=== PATIENT | male | born 1980 | race Caucasian/White ===

== ENCOUNTER 2016-07-21 08:56 | Day surgery (SDC) | payer OTHER ==
[2016-07-20 11:23] VITALS: BMI 26.6
[~2016-07-21 08:56] MED LIST: DEXAMETHASONE SOD PHOSPHATE 10 MG/ML 1 ML VIAL IV ONE; HEPARIN SODIUM,PORCINE 5,000 UNIT/ML 1 ML VIAL SQ ONE; HYDROmorphone 1 MG/ML 1 ML SYRINGE IVP PRN; LACTATED RINGERS 1,000 ML IV SCH; MIDAZOLAM 2 MG/2 ML VIAL IV PRN; ONDANSETRON 4 MG/2 ML VIAL IVP ONE; SCOPOLAMINE 1.5MG/72HR PATCH TRANSDERM ONE; ceFAZolin 2 GM in SODIUM CHLORIDE 0.9% 100 ML IVPB ONE; metroNIDAZOLE-NS PMX 500 MG in SALINE 1 100ML.BAG IVPB ONE
[2016-07-21] MEDS ORDERED: LIDOCAINE 1% 20 ML VIAL (10MG/ML) FOR IV START INTRADERMA ONE (09:49)
[2016-07-21 09:53] LABS: Glucose,Whole Blood 170 mg/dL (75-99)
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
[2016-07-21] MEDS ORDERED: BUPIVACAIN-EPI 0.25%-1:200,000 30 ML VIAL SQ ONE ×2 (10:26→11:13)
[2016-07-21] MEDS ORDERED: LIDOCAINE 1% INJ 10MG/ML (20 ML MDV) ONE (10:44)
[2016-07-21] MEDS ORDERED: MIDAZOLAM 2 MG/2 ML VIAL ONE (10:44)
[2016-07-21] MEDS ORDERED: fentaNYL (PF) 50 MCG/ML 2 ML AMP ONE (10:44)
[2016-07-21] MEDS ORDERED: KETAMINE 10 MG/ML 20 ML VIAL ONE (10:44)
[2016-07-21] MEDS ORDERED: PROPOFOL 10 MG/ML 20 ML VIAL IV ONE (10:44)
--- NOTE | 2016-07-21 11:16 | P.OP ---
Date of Procedure: 07/21/16 Preoperative Diagnosis: Pilonidal cyst Postoperative Diagnosis: Pilonidal cyst Procedure(s) Performed: Excision of pilonidal cyst Anesthesia: MAC, local Surgeon: Caleb Jacques Estimated Blood Loss (ml): 5 Pathology: other (Pilonidal cyst abscess) Condition: stable Disposition: PACU Description of Procedure: The patient's placed on the operating table in the prone position. He received IV sedation. His perineum was prepped and draped usual sterile fashion. The area was anesthetized 1% local Xylocaine. An elliptical skin incision was made around the pilonidal cyst. There is some purulent drainage from phimosis. The dissection was taken down level of the coccyx. The Harmonic scissors were used to divide the subcutaneous fat. The wound was inspected for bleeding and any bleeding points were coagulated using cautery. The wound was then packed with wet-to-dry Kerlix. Patient top she will was sent to recovery in stable condition.
[2016-07-21 11:33] VITALS: TEMP 98.1
[2016-07-21 11:53] VITALS: RESP 16
[2016-07-21 14:06] VITALS: BP 119/70; PULSE 86
== END 2016-07-21 14:53 | disposition home or self-care (01) ==
LOC: OR 08:56
PROVIDERS: ATTEND Surgery
DX: L05.01 Pilonidal cyst with abscess (principal); E11.9 Type 2 diabetes mellitus without complications; Z79.84 Long term (current) use of oral hypoglycemic drugs; E07.9 Disorder of thyroid, unspecified; E78.5 Hyperlipidemia, unspecified; I10 Essential (primary) hypertension; M19.90 Unspecified osteoarthritis, unspecified site; N42.9 Disorder of prostate, unspecified; F17.200 Nicotine dependence, unspecified, uncomplicated; F41.9 Anxiety disorder, unspecified; F31.9 Bipolar disorder, unspecified; F32.9 Major depressive disorder, single episode, unspecified; F41.0 Panic disorder [episodic paroxysmal anxiety]; Z79.899 Other long term (current) drug therapy
CPT/HCPCS: 88304; 11770; J2250; J1644; J1100; J0690; J2405; J2001; J3010; J2704

== ENCOUNTER 2016-07-27 19:20 | Inpatient (IN) | payer OTHER ==
[2016-07-27] MEDS ORDERED: SODIUM CHLORIDE 0.9% 1,000 ML IV STA ×2 (19:58→21:47)
[2016-07-27] MEDS ORDERED: MORPHINE SULFATE 4 MG/ML SYRINGE IVP STA (19:58)
[2016-07-27] MEDS ORDERED: RX INFO: IV CONTRAST WAS GIVEN 1 EACH MISC MISCELLANE PRN (19:58)
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
[2016-07-27 20:52] LABS: Appearance,Urine Clear (Clear); Bilirubin,Urine Negative (Negative); Glucose,Urine (UA) 1+ (Negative); Leukocyte Esterase,Urine Negative (Negative); Nitrite,Urine Negative (Negative); Protein,Urine Negative (Negative); Specific Gravity,Urine 1.016 (1.001-1.035); UA Billing (MACRO vs. MICRO) CHEM; Urobilinogen,Urine <2.0 mg/dL (<2.0)
[2016-07-27 20:56] LABS: Basophils % (A) 0 %; CH 32.4; Eosinophils # (A) 0.1 k/uL (0-0.7); Eosinophils % (A) 1 %; HCT 41.1 % (39.0-53.0); HDW 2.26; HGB 14.2 gm/dL (13.0-17.5); Luc # (Auto) 0.15; Luc % (Auto) 1; Lymphocytes % (A) 8 %; MCHC 34.4 g/dL (31.0-37.0); MCV 92.9 fL (80.0-100.0); Mean Platelet Volume 6.2; Monocytes # (A) 0.6 k/uL (0-1.0); Monocytes % (A) 4 %; Neutrophils # (A) 11.7 k/uL (1.3-7.7); Neutrophils % (A) 86 %; RBC 4.43 m/uL (4.30-5.90); RDW 14.5 % (11.5-15.5); WBC 13.6 k/uL (3.8-10.6); WBC (Perox) 13.55
[2016-07-27 21:04] LABS: INR 1.1 (<1.1); Partial Thromboplastin Time 29.4 sec (22.0-30.0); Prothrombin Time 11.1 sec (9.0-12.0)
[2016-07-27 21:06] LABS: ALT 39 U/L (21-72); AST 27 U/L (17-59); Alkaline Phosphatase 54 U/L (38-126); Anion Gap 16 mmol/L; Blood Urea Nitrogen 12 mg/dL (9-20); Calcium 9.4 mg/dL (8.4-10.2); Carbon Dioxide 20 mmol/L (22-30); Chloride 89 mmol/L (98-107); Glucose 127 mg/dL (74-99); Non-African American GFR(MDRD) >60 (>60 ml/min/1.73 sqM); Potassium 4.5 mmol/L (3.5-5.1); Sodium 125 mmol/L (137-145); Total Bilirubin 0.7 mg/dL (0.2-1.3); Total Protein 7.2 g/dL (6.3-8.2)
[2016-07-27 21:11] LABS: Ketones,Urine 2+ (Negative)
[2016-07-27] MEDS ORDERED: HYDROmorphone 1 MG/ML 1 ML SYRINGE IVP STA ×2 (21:47→23:26)
--- NOTE | 2016-07-27 23:10 | CT ---
EXAMINATION TYPE: CT abdomen pelvis w con DATE OF EXAM: 07/27/2016 10:29 PM COMPARISON: NONE HISTORY: Pt states of abdominal pain after sx for pilondial cysts x1 week ago. History of left nephrectomy. CT DLP: 680.4 mGycm Automated exposure control for dose reduction was used. TECHNIQUE: Helical acquisition of images was performed from the lung bases through the pelvis. CONTRAST: Performed without Oral Contrast and with IV Contrast, patient injected with 100 mL of Omnipaque 300. FINDINGS: LUNG BASES: No significant abnormality is appreciated. LIVER/GB: No significant abnormality is appreciated in the liver. Gallbladder is moderately distended . Possibility of gallstones or sludge in the gallbladder cannot be excluded. PANCREAS: No significant abnormality is seen. SPLEEN: Granulomatous calcifications are noted in the spleen. There is possibility of partial splenec jonatan changes. ADRENALS: No significant abnormality is seen. KIDNEYS: Right kidney showed normal function and excretion of the contrast without obstructing opaque stones or hydronephrosis. Left kidney is surgically absent. RETROPERITONEAL ADENOPATHY: None visualized REPRODUCTIVE ORGANS: Prostate gland appears grossly unremarkable. URINARY BLADDER: Urinary bladder is moderately distended. PELVIC ADENOPATHY: None visualized. OSSEOUS STRUCTURES: Appear intact. BOWEL: There is marked fluid and gas distention of colonic bowel loops and rectum in the abdomen and pelvis. There is evidence of lucencies in the cecum and ascending colon and is suspicious for pneuma tosis and ischemic:. A clinical correlation is suggested. Visualized stomach showed moderate fluid distention. Small bowel loops showed mild to moderate fluid distention. There is possibility of mild ileus. No de finite transition zone is noted in the small bowel loops to represent significant bowel small bowel o bstruction. No definite free intraperitoneal air is noted at present. OTHER: IMPRESSION: 1. There is marked fluid and air distention of colonic bowel loops with suspected pneumatosis changes of cecum and ascending colon with suspected ischemic bowel or gangrenous bowel changes. No definite focal obstruction changes are noted in the colon. Rectum also showed fluid distention. 2. Small bowel loops are fluid distended with possible enteritis or ileus changes. No significant tra nsition zone is noted in the small bowel loops to represent focal obstruction in the small bowel loop s. 3. Left nephrectomy and partial splenectomy changes. 4. Moderate fluid distention of the gallbladder is noted with possible sludge or gallstones in the ga llbladder. If clinically indicated ultrasound study may BE helpful. A phone report is given to Dr. Ramirez at the time of the dictation.
[2016-07-27] MEDS ORDERED: LORazepam 2 MG/ML SYRINGE IV STA (23:25)
[2016-07-27] MEDS ORDERED: SODIUM CHLORIDE 0.9% 1,000 ML IV ONE (23:26)
[2016-07-27] MEDS ORDERED: NALOXONE 0.4 MG/ML 1 ML VIAL IV PRN (23:28)
[2016-07-27] MEDS ORDERED: ONDANSETRON 4 MG/2 ML VIAL IVP PRN (23:28)
[2016-07-28] MEDS ORDERED: PIPERACILLIN-TAZOBACTAM 3.375 GM in DEXTROSE/WATER 1 50ML.BAG IVPB SCH
[2016-07-28] MEDS ORDERED: LIDOCAINE URO-JET JELLY 2% 5 ML KIT ENDOTRACHE ONE (00:17)
[2016-07-28] MEDS: PIPERACILLIN-TAZOBACTAM 3.375 GM in DEXTROSE/WATER 1 50ML.BAG IVPB SCH ×2 (00:20→08:26)
[2016-07-28] MEDS: HYDROmorphone 1 MG/ML 1 ML SYRINGE IV PRN ×6 (00:38→10:52)
[2016-07-28 01:36] VITALS: BMI 26.3
[2016-07-28 02:14] VITALS: RESP 16
[2016-07-28 05:59] LABS: Glucose,Whole Blood 96 mg/dL (75-99)
[2016-07-28 07:47] VITALS: BP 127/81; PULSE 81; TEMP 98.1
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
--- NOTE | 2016-07-29 17:51 | HP ---
DATE OF ADMISSION: 07/27/2016 CHIEF COMPLAINT: Abdominal pain, distention and vomiting. Small bowel obstruction. HISTORY OF PRESENT ILLNESS: This is another admission for this 35-year-old white male. He presented to the emergency room with crampy abdominal pain, vomiting and was admitted with small bowel obstruction. He has had no hematemesis, melena, etc. REVIEW OF SYSTEMS: He has had no other complaints or problems. Past medical history, family history and personal and social histories reveal that he has been treated for diabetes and seizure disorder. He is on: 1. Bactrim DS. 2. Terazosin 1 mg once a day. 3. Seroquel 300 mg once a day. 4. Amaryl 4 mg twice a day. 5. Cymbalta 60 mg once a day. 6. Ativan 1 mg t.i.d. p.r.n. 7. Depakote 500 mg 2 twice a day. 8. Percocet 7.5 p.r.n. 9. Zocor 20 at bedtime. 10. Ventolin HFA updraft. 11. Metformin 850 mg t.i.d. 12. Metoprolol 50 mg twice a day. 13. Lisinopril 20 mg once a day. 14. Lyrica 50 mg 3 times a day. Past medical history, family history, family history and personal and social histories are otherwise unremarkable and noncontributory. He does not smoke. He has had a problem with alcohol in the past. PHYSICAL EXAMINATION: VITAL SIGNS: Blood pressure 124/80 with a pulse of 90, respirations 16, and temperature 97.5. GENERAL: Appeared to well-developed, well-nourished, in no acute distress. Face is flushed. HEENT: Head, ears, eyes, mouth, and throat were normal. NECK: Neck veins not distended. Thyroid is not enlarged. Chest is clear. Cardiac exam is normal. The abdomen is slightly protuberant. He had generalized mild tenderness. Bowel sounds are absent. EXTREMITIES: Normal. NEUROLOGICAL: Intact. IMPRESSION: 1. Small bowel obstruction. 2. Bipolar depression. 3. Type 2 diabetes type 2 loq-mrsrhlz-uhokjhzof diabetes mellitus. PLAN: 1. Bed rest. 2. IV fluids. 3. Nasogastric tube suction. 4. Surgical consult.
--- NOTE | 2016-07-29 17:53 | PN ---
DATE OF SERVICE: 07/28/2016 CHIEF COMPLAINT: Bowel obstruction. HISTORY OF PRESENT ILLNESS: This gentleman is doing fairly well and he has had copious amounts of loose stool during the night. Obstruction is probably passed. He has had no vomiting. He has had no pain. PHYSICAL EXAMINATION: CHEST: Clear. CARDIAC: Normal. Soft and nontender. Bowel sounds are present. IMPRESSION: Resolving ileus or small bowel obstruction. PLAN: Probably home later today and this will be arranged by the nurse practitioner.
== END 2016-07-28 12:27 | disposition home or self-care (01) | DRG 389 ==
LOC: EC 19:20 → 3SUR 23:26
PROVIDERS: ADMIT Surgery; ATTEND Surgery
DX: K56.60 Unspecified intestinal obstruction (principal); E87.1 Hypo-osmolality and hyponatremia; I10 Essential (primary) hypertension; E11.9 Type 2 diabetes mellitus without complications; K56.7 Ileus, unspecified; E78.5 Hyperlipidemia, unspecified; F17.200 Nicotine dependence, unspecified, uncomplicated; F41.0 Panic disorder [episodic paroxysmal anxiety]; G40.909 Epilepsy, unspecified, not intractable, without status epilepticus; G89.29 Other chronic pain; K21.9 Gastro-esophageal reflux disease without esophagitis; L05.91 Pilonidal cyst without abscess; M19.90 Unspecified osteoarthritis, unspecified site; N40.0 Benign prostatic hyperplasia without lower urinary tract symptoms; E07.9 Disorder of thyroid, unspecified; G43.909 Migraine, unspecified, not intractable, without status migrainosus; F41.9 Anxiety disorder, unspecified; F32.9 Major depressive disorder, single episode, unspecified; K59.00 Constipation, unspecified; F11.90 Opioid use, unspecified, uncomplicated; Z98.1 Arthrodesis status; Z79.84 Long term (current) use of oral hypoglycemic drugs; Z79.899 Other long term (current) drug therapy; Z82.49 Family history of ischemic heart disease and other diseases of the circulatory system
CPT/HCPCS: 36415; 74177; 80053; 81003; 83605; 83690; 83735; 85025; 85610; 85730; 96374; 96375; 99284

== ENCOUNTER 2016-07-31 09:44 | Emergency (ER) | payer OTHER ==
[2016-07-31 10:18] VITALS: BP 123/71; PULSE 89; RESP 16; TEMP 97.6
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
== END 2016-07-31 11:54 | disposition home or self-care (01) ==
LOC: EC 09:44
DX: T81.89XA Other complications of procedures, not elsewhere classified, initial encounter (principal); E11.40 Type 2 diabetes mellitus with diabetic neuropathy, unspecified; I10 Essential (primary) hypertension; E07.9 Disorder of thyroid, unspecified; G40.909 Epilepsy, unspecified, not intractable, without status epilepticus; E78.5 Hyperlipidemia, unspecified; F31.9 Bipolar disorder, unspecified; F41.9 Anxiety disorder, unspecified; F17.200 Nicotine dependence, unspecified, uncomplicated; Z79.899 Other long term (current) drug therapy; Z79.84 Long term (current) use of oral hypoglycemic drugs; Z86.69 Personal history of other diseases of the nervous system and sense organs
CPT/HCPCS: 99282; 99284

== ENCOUNTER 2016-08-23 22:32 | Inpatient (IN) | payer OTHER ==
[2016-08-23] MEDS ORDERED: SODIUM CHLORIDE 0.9% 1,000 ML IV ONE (22:35)
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
[2016-08-23 23:05] LABS: Glucose,Whole Blood 109 mg/dL (75-99)
[2016-08-23 23:08] LABS: Basophils % (A) 0 %; CH 32.9; CHCM 34.8; Eosinophils # (A) 0.2 k/uL (0-0.7); Eosinophils % (A) 2 %; HDW 2.34; HGB 15.4 gm/dL (13.0-17.5); Luc # (Auto) 0.23; Luc % (Auto) 2; Lymphocytes # (A) 3.4 k/uL (1.0-4.8); Lymphocytes % (A) 32 %; MCH 31.7 pg (25.0-35.0); MCHC 33.5 g/dL (31.0-37.0); MCV 94.8 fL (80.0-100.0); Mean Platelet Volume 6.4; Monocytes # (A) 0.5 k/uL (0-1.0); Monocytes % (A) 4 %; Neutrophils # (A) 6.3 k/uL (1.3-7.7); Neutrophils % (A) 59 %; RBC 4.85 m/uL (4.30-5.90); RDW 13.8 % (11.5-15.5); WBC 10.7 k/uL (3.8-10.6); WBC (Perox) 10.41
[2016-08-23 23:09] LABS: Appearance,Urine Clear (Clear); Bilirubin,Urine Negative (Negative); Glucose,Urine (UA) 3+ (Negative); Ketones,Urine Negative (Negative); Leukocyte Esterase,Urine Negative (Negative); Nitrite,Urine Negative (Negative); Protein,Urine Negative (Negative); Specific Gravity,Urine 1.004 (1.001-1.035); UA Billing (MACRO vs. MICRO) CHEM; Urobilinogen,Urine <2.0 mg/dL (<2.0)
[2016-08-23 23:19] LABS: ALT 30 U/L (21-72); AST 19 U/L (17-59); Acetaminophen <10.0 ug/mL; Alcohol <10 mg/dL; Alkaline Phosphatase 60 U/L (38-126); Amylase 31 U/L (30-110); Anion Gap 12 mmol/L; Blood Urea Nitrogen 27 mg/dL (9-20); Calcium 9.5 mg/dL (8.4-10.2); Carbon Dioxide 27 mmol/L (22-30); Chloride 97 mmol/L (98-107); Glucose 192 mg/dL (74-99); Magnesium 1.6 mg/dL (1.6-2.3); Non-African American GFR(MDRD) >60 (>60 ml/min/1.73 sqM); Potassium 4.7 mmol/L (3.5-5.1); Salicylate <1.0 mg/dL; Sodium 136 mmol/L (137-145); Total Bilirubin 0.7 mg/dL (0.2-1.3); Total Protein 7.2 g/dL (6.3-8.2)
[2016-08-23 23:23] LABS: Partial Thromboplastin Time 29.4 sec (22.0-30.0); Prothrombin Time 10.6 sec (9.0-12.0)
[2016-08-23 23:27] LABS: Creatine Kinase 101 U/L (55-170)
[2016-08-23 23:28] LABS: Ammonia <9 umol/L (<30)
[2016-08-23 23:40] LABS: Creatine Kinase MB 1.9 ng/mL (0.0-2.4); Troponin I <0.012 ng/mL (0.000-0.034)
--- NOTE | 2016-08-24 00:03 | CT ---
EXAMINATION TYPE: CT brain wo con DATE OF EXAM: 08/23/2016 11:25 PM COMPARISON: NONE HISTORY: OVERDOSE CT DLP: 960.50 mGycm Automated exposure control for dose reduction was used. FINDINGS: There is no acute intracranial hemorrhage, mass effect, or midline shift identified. The ventricles and sulci are within normal limits in size. The globes are intact and the visualized sinuses are luisa ar. IMPRESSION: No acute intracranial hemorrhage, mass effect, or midline shift is seen.
--- NOTE | 2016-08-24 00:05 | XR ---
EXAMINATION TYPE: XR chest 1V portable DATE OF EXAM: 08/23/2016 11:18 PM COMPARISON: NONE HISTORY: History of overdose no prior TECHNIQUE: Single frontal view of the chest is obtained. FINDINGS: There is no focal air space opacity, pleural effusion, or pneumothorax seen. The cardiac silhouette size is within normal limits. The osseous structures are intact. IMPRESSION: No acute process.
[2016-08-24] MEDS ORDERED: ZIPRASIDONE 20 MG VIAL IM STA (01:23)
[2016-08-24] MEDS ORDERED: LORazepam 2 MG/ML SYRINGE IM STA (01:23)
[2016-08-24] MEDS ORDERED: NALOXONE 0.4 MG/ML 1 ML VIAL IV PRN (01:34)
[2016-08-24] MEDS ORDERED: LORazepam 2 MG/ML SYRINGE IV PRN (01:34)
[2016-08-24 03:43] LABS: Glucose,Whole Blood 207 mg/dL (75-99)
[2016-08-24] MEDS: SODIUM CHLORIDE 0.9% 1,000 ML IV SCH ×3 (03:47→23:39)
[2016-08-24 07:37] LABS: Glucose,Whole Blood 197 mg/dL (75-99)
[2016-08-24] MEDS: INSULIN LISPRO (humaLOG) 300 UNIT/3 ML VIAL SQ SCH ×4 (07:41→20:51)
[2016-08-24] MEDS ORDERED: DIVALPROEX 500 MG TABLET.DR PO SCH (09:00)
[2016-08-24 10:06] LABS: Hemoglobin A1C 7.8 % (4.2-6.1)
[2016-08-24] MEDS: VALPROATE SODIUM 750 MG in SODIUM CHLORIDE 0.9% 50 ML IVPB SCH ×2 (10:10→20:51)
[2016-08-24] MEDS ORDERED: VALPROATE SODIUM 500 MG in SODIUM CHLORIDE 0.9% 50 ML IVPB STA (10:55)
[2016-08-24 11:46] LABS: Glucose,Whole Blood 187 mg/dL (75-99)
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
[2016-08-24] MEDS ORDERED: DOCUSATE 100 MG CAP PO PRN (14:07)
[2016-08-24] MEDS: metFORMIN 850 MG TAB PO SCH ×3 (16:58→21:05)
[2016-08-24] MEDS: PREGABALIN 50 MG CAP PO SCH ×2 (16:59→21:05)
[2016-08-24 17:00] LABS: Glucose,Whole Blood 100 mg/dL (75-99)
[2016-08-24] MEDS: LORazepam 1 MG TAB PO PRN ×2 (18:11→23:37)
[2016-08-24] MEDS: HYDROcodone/APAP 5-325MG 1 EACH TAB PO PRN ×2 (18:11→23:37)
[2016-08-24] MEDS: METOPROLOL TARTRATE 50 MG TAB PO SCH (20:09)
[2016-08-24] MEDS: QUEtiapine 100 MG TAB PO SCH ×2 (20:09→22:13)
[2016-08-24] MEDS: TERAZOSIN 2 MG CAP PO SCH (20:09)
[2016-08-24 20:43] LABS: Glucose,Whole Blood 117 mg/dL (75-99)
[2016-08-24] MEDS ORDERED: traZODone HCL 100 MG TAB PO PRN (21:00)
[2016-08-24] MEDS ORDERED: FAMOTIDINE 20 MG TAB PO SCH (21:00)
[2016-08-24] MEDS ORDERED: ATORVASTATIN 10 MG TAB PO SCH (21:00)
[2016-08-24] MEDS ORDERED: GLIMEPIRIDE 4 MG TAB PO SCH (21:00)
[2016-08-24] MEDS: PSYLLIUM HUSK 100% 6 GM PACKET PO SCH (21:04)
[2016-08-25 00:26] VITALS: RESP 18
[2016-08-25 02:03] LABS: Glucose,Whole Blood 188 mg/dL (75-99)
[2016-08-25] MEDS: HYDROcodone/APAP 5-325MG 1 EACH TAB PO PRN (05:17)
[2016-08-25] MEDS ORDERED: LEVOTHYROXINE 50 MCG TAB PO SCH (06:30)
[2016-08-25 07:38] LABS: Glucose,Whole Blood 160 mg/dL (75-99)
[2016-08-25] MEDS: LORazepam 1 MG TAB PO PRN (07:40)
[2016-08-25] MEDS: METOPROLOL TARTRATE 50 MG TAB PO SCH (07:41)
[2016-08-25] MEDS: metFORMIN 850 MG TAB PO SCH (07:41)
[2016-08-25] MEDS: INSULIN LISPRO (humaLOG) 300 UNIT/3 ML VIAL SQ SCH (07:41)
[2016-08-25] MEDS: TERAZOSIN 2 MG CAP PO SCH (07:42)
[2016-08-25] MEDS: PREGABALIN 50 MG CAP PO SCH (07:42)
[2016-08-25] MEDS: VALPROATE SODIUM 750 MG in SODIUM CHLORIDE 0.9% 50 ML IVPB SCH (07:42)
[2016-08-25] MEDS: PSYLLIUM HUSK 100% 6 GM PACKET PO SCH (07:49)
[2016-08-25] MEDS ORDERED: LISINOPRIL 20 MG TAB PO SCH (09:00)
[2016-08-25] MEDS ORDERED: glipiZIDE 10 MG TAB PO SCH (09:00)
[2016-08-25] MEDS ORDERED: DULoxetine HCL 60 MG CAPSULE.DR PO SCH (09:00)
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
[2016-08-25 10:29] VITALS: BP 140/92; PULSE 83; TEMP 97.5
--- NOTE | 2016-08-25 10:36 | P.DS ---
Providers Date of admission: 08/24/16 01:34 Expected date of discharge: 08/25/16 Attending physician: Deon Quintanilla Consults: 08/24/16 10:33 Consult Physician Urgent Consulting Provider: Venu Sylvester Consult Reason/Comments: seizures Do you want consulting provider notified?: Yes Primary care physician: Deon Quintanilla Hospital Course: 36-year-old male who presented on the day of admission to the emergency room on the after his grandmother found the patient to be unresponsive difficult to arouse. The grandmother activated the EMS system. When the patient was arousable became very combative and confused. The blood sugar was 300. Patient does have a history of diabetes. Also has a history of a seizure disorder. Patient's home dose of Depakote was 1000 mg twice a day. Patient apparently had missed several doses and the patient was concerned that he had a seizure. Patient's primary care provider is Dr. Quintanilla. A computed tomography scan of the brain done in the emergency room was negative. CBC showed mild leukocytosis otherwise was normal. The comprehensive medical profile showed mild hypo-natremia at 36. Urinalysis and cardiac enzymes were negative and hemoglobin A1c was 7.8. Subsequently the patient was seen and admitted to the services of the attending. A urine drug screen was positive for marijuana, benzodiazepine, and Tri-Cyclen antidepressives. Patient Depakote level on arrival was undetectable. When questioning patient patient stated that he had stopped taking his Depakote because he was concerned it was going to cause liver failure. There were no further episodes of aggressive agitated behavior. Patient was given Geodon and Haldol in the emergency room. In neurology Dr. Sylvester consult was initiated with recommendations that the patient could be discharged. EEG showed no acute findings. Recommended Depakote twice a day dosing extended relief. Patient was felt to be clinically stable and appropriate proceed with a discharge to home Impression discharge diagnoses Present on arrival seizure with postictal state with Depakote level undetectable Issues of noncompliance with medications stopped his Depakote greater than 4 weeks Chronic pain syndrome with narcotic dependency Present on admission acute toxic encephalopathy with behavior disturbance likely due to medications side effects had stopped Lyrica and Depakote Subtherapeutic Depakote level Recent excision of a pilonidal cyst on 07/21/2016 Bipolar mood disorder Type 2 diabetes non-insulin requiring hemoglobin A1c 7.8 History of alcoholism with the recent admission on 07/07/2016 acute alcohol withdrawal syndrome Chronic alcoholism History of grand mal seizure disorder 08/07/2015 Urine drug screen positive for marijuana, benzodiazepine, tigecycline antidepressives Present on admission mild leukocytosis likely reactive Present in the emergency room hyperglycemia blood sugar 300 Present on admission mild hyponatremia The above dictated assessment and findings were discussed with dr Quintanilla. Impression and the plan of care have been dictated as directed. Lana Herrera nurse practitioner acting as a scribe for Dr. Quintanilla Patient Condition at Discharge: Stable Plan - Discharge Summary New Discharge Prescriptions: Divalproex ER [Depakote ER] 1,000 mg PO BID #120 tab Discharge Medication List Metoprolol Tartrate [Lopressor] 50 mg PO BID 02/22/16 [History] metFORMIN HCL [Glucophage] 850 mg PO TID 02/22/16 [History] Dextrose Chew [Glucose Chew Tab] 4 gm PO DIRECTED PRN 07/05/16 [History] Lisinopril [Zestril] 20 mg PO DAILY 07/05/16 [History] Pregabalin [Lyrica] 50 mg PO TID 07/05/16 [History] QUEtiapine FUMARATE [SEROquel] 300 mg PO HS 07/05/16 [History] Simvastatin [Zocor] 20 mg PO HS 07/05/16 [History] Testosterone Cypionate [Depo-Testosterone] 300 mg IM Q21D 07/05/16 [History] oxyCODONE-APAP 7.5-325MG [Percocet 7.5-325 mg] 1 tab PO Q4-6H PRN 07/05/16 [ History] traZODone HCL [Desyrel] 50 - 100 mg PO HS PRN 07/05/16 [History] DULoxetine HCL [Cymbalta] 60 mg PO DAILY 07/20/16 [History] Glimepiride [Amaryl] 4 mg PO BID 07/20/16 [History] LORazepam [Ativan] 1 mg PO TID PRN 07/20/16 [History] Divalproex Sodium [Depakote] 1,000 mg PO BID 07/27/16 [History] Docusate [Colace] 100 mg PO BID PRN 07/27/16 [History] Levothyroxine Sodium [Synthroid] 50 mcg PO DAILY 07/27/16 [History] Aurora-3 Fatty Acids [Aurora-3] 2,000 mg PO BID 07/27/16 [History] Mariee Caplets 8 tab PO DAILY PRN 07/27/16 [History] Psyllium Husk (with Sugar) [Metamucil Powder] 3.4 gm PO BID #1 can 07/28/16 [Rx] Terazosin [Hytrin] 2 mg PO BID 08/23/16 [History] glyBURIDE [Diabeta] 5 mg PO DAILY 08/23/16 [History] Divalproex ER [Depakote ER] 1,000 mg PO BID #120 tab 08/25/16 [Rx] Follow up Appointment(s)/Referral(s): Deon Quintanilla MD [Primary Care Provider] - 08/28/16 [facility], [NON-STAFF] - Venu Sylvester MD [STAFF PHYSICIAN] - 1 Week None,Stated [REFERRING] - 1-2 days Patient Instructions/Handouts: Encephalopathy (DC) Activity/Diet/Wound Care/Special Instructions: Take medications as prescribed. Cardiac, diabetic diet. NO smoking, cessation information provided. Wound care as previously ordered to [facility]. Discharge Disposition: HOME WITH HOME HEALTH SERVICES
[2016-08-25 10:53] LABS: Basophils % (A) 0 %; CH 32.6; CHCM 33.4; Eosinophils # (A) 0.1 k/uL (0-0.7); Eosinophils % (A) 1 %; HCT 46.1 % (39.0-53.0); HGB 15.2 gm/dL (13.0-17.5); Luc # (Auto) 0.14; Luc % (Auto) 2; Lymphocytes # (A) 1.5 k/uL (1.0-4.8); Lymphocytes % (A) 17 %; MCH 32.3 pg (25.0-35.0); MCHC 32.9 g/dL (31.0-37.0); Mean Platelet Volume 6.2; Monocytes # (A) 0.3 k/uL (0-1.0); Monocytes % (A) 4 %; Neutrophils # (A) 6.7 k/uL (1.3-7.7); Neutrophils % (A) 76 %; RBC 4.71 m/uL (4.30-5.90); RDW 13.8 % (11.5-15.5); WBC 8.7 k/uL (3.8-10.6); WBC (Perox) 8.71
[2016-08-25 11:12] LABS: ALT 26 U/L (21-72); AST 19 U/L (17-59); Alkaline Phosphatase 65 U/L (38-126); Anion Gap 14 mmol/L; Blood Urea Nitrogen 14 mg/dL (9-20); Calcium 9.4 mg/dL (8.4-10.2); Carbon Dioxide 25 mmol/L (22-30); Chloride 96 mmol/L (98-107); Glucose 194 mg/dL (74-99); Non-African American GFR(MDRD) >60 (>60 ml/min/1.73 sqM); Potassium 4.9 mmol/L (3.5-5.1); Sodium 135 mmol/L (137-145); Total Bilirubin 1.1 mg/dL (0.2-1.3); Total Protein 7.5 g/dL (6.3-8.2)
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
--- NOTE | 2016-08-26 14:43 | PN ---
CHIEF COMPLAINT: Coma. HISTORY OF PRESENT ILLNESS: This gentleman is doing well and he is now fully awake and alert. The etiology for his syncope is not clear, but may be related to the fact that he had not taken his medications and might have had a seizure with postictal depression. At the present time, he is back to normal neurologically and can be discharged and this will be arranged by the nurse practitioner and will be followed up in the office.
--- NOTE | 2016-08-27 09:05 | EEG ---
DATE OF SERVICE: 08/25/2016 INDICATIONS FOR EXAMINATION: Altered mental status and seizures. AGE: 36Y CURRENT ANTIEPILEPTIC MEDICATIONS: Depakote. DESCRIPTION OF THE PROCEDURE: This EEG was performed using a 21-channel digital electroencephalograph, following the international 10 to 20 system. DESCRIPTION OF THE RECORDING: From the beginning of the tracing, and with the patient's eyes closed, the background rhythm was mostly consisting of 8 to 9 Hz alpha frequency in the posterior occipital leads. No obvious asymmetry is seen. Frequent movement and muscle artifacts are noticed. Photic stimulation was performed with a good driving response seen. No pathological waves were elicited. Hyperventilation was not performed. The patient remains awake throughout the tracing. No epileptiform discharges were seen. His EKG lead showed a regular rate and rhythm. INTERPRETATION: This awake EEG can be considered within normal limits. There was no asymmetry seen. No epileptiform discharges were noticed. The absence of epileptiform discharges does not rule out the diagnosis of epilepsy, therefore, clinical correlation is recommended that.
== END 2016-08-25 11:05 | disposition home health service (06) | DRG 92 ==
LOC: EC 22:32 → SUPCPDRO 22:32 → 4MS4W 08-24 01:34
PROVIDERS: ADMIT Family Medicine; ATTEND Family Medicine
DX: G92 Toxic encephalopathy (principal); E87.1 Hypo-osmolality and hyponatremia; G40.409 Other generalized epilepsy and epileptic syndromes, not intractable, without status epilepticus; E11.65 Type 2 diabetes mellitus with hyperglycemia; F11.20 Opioid dependence, uncomplicated; I10 Essential (primary) hypertension; G62.9 Polyneuropathy, unspecified; T42.6X6A Underdosing of other antiepileptic and sedative-hypnotic drugs, initial encounter; F31.9 Bipolar disorder, unspecified; D72.829 Elevated white blood cell count, unspecified; F91.8 Other conduct disorders; G89.4 Chronic pain syndrome; E86.0 Dehydration; E78.5 Hyperlipidemia, unspecified; F41.0 Panic disorder [episodic paroxysmal anxiety]; G89.18 Other acute postprocedural pain; M79.605 Pain in left leg; F10.20 Alcohol dependence, uncomplicated; F41.9 Anxiety disorder, unspecified; K59.00 Constipation, unspecified; G43.909 Migraine, unspecified, not intractable, without status migrainosus; K21.9 Gastro-esophageal reflux disease without esophagitis; E03.9 Hypothyroidism, unspecified; R32 Unspecified urinary incontinence; M19.90 Unspecified osteoarthritis, unspecified site; M54.2 Cervicalgia; M54.5 Low back pain; N40.0 Benign prostatic hyperplasia without lower urinary tract symptoms; F17.200 Nicotine dependence, unspecified, uncomplicated; F12.90 Cannabis use, unspecified, uncomplicated; Z78.1 Physical restraint status; Z79.84 Long term (current) use of oral hypoglycemic drugs; Z79.899 Other long term (current) drug therapy; Z71.6 Tobacco abuse counseling; Z80.9 Family history of malignant neoplasm, unspecified; Z87.448 Personal history of other diseases of urinary system; Z82.49 Family history of ischemic heart disease and other diseases of the circulatory system; Z98.1 Arthrodesis status; Z90.81 Acquired absence of spleen; Z98.890 Other specified postprocedural states; Z87.828 Personal history of other (healed) physical injury and trauma; Z90.5 Acquired absence of kidney; Z91.128 Patient's intentional underdosing of medication regimen for other reason; Z91.14 Patient's other noncompliance with medication regimen; Y90.0 Blood alcohol level of less than 20 mg/100 ml
CPT/HCPCS: 36415; 70450; 71010; 80053; 80164; 80306; 80320; 81003; 82009; 82140; 82150; 82550; 82553; 83036; 83520; 83605; 83690; 83735; 84443; 84484; 85025; 85610; 85730; 87070; 87077; 87186; 87205; 93005; 95816; 96372; 99291

== ENCOUNTER 2016-09-08 11:55 | Emergency (ER) | payer OTHER ==
[2016-09-08 12:59] VITALS: BP 154/94
[2016-09-08 13:35] VITALS: RESP 18
[2016-09-08] MEDS ORDERED: ALBUTEROL NEBULIZED 2.5 MG/3 ML INHALATION STA (13:44)
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
[2016-09-08 14:05] VITALS: PULSE 104
--- NOTE | 2016-09-08 14:36 | XR ---
EXAMINATION TYPE: XR chest 2V DATE OF EXAM: 09/08/2016 2:31 PM COMPARISON: 08/23/2016 HISTORY: Cough and chest pain TECHNIQUE: Frontal and lateral views of the chest are obtained. FINDINGS: Patchy infiltrate right upper lobe and right medial lung base may reflect developing pneum onia. Mild increased density left lower lobe. Cardiomediastinal silhouette is unremarkable. Calcified subcarinal lymph nodes are detected. IMPRESSION: Correlate for developing pneumonia.
[2016-09-08 14:50] VITALS: TEMP 98.4
== END 2016-09-08 14:49 | disposition home or self-care (01) ==
LOC: EC 11:55
DX: J18.9 Pneumonia, unspecified organism (principal); I10 Essential (primary) hypertension; G40.909 Epilepsy, unspecified, not intractable, without status epilepticus; E78.5 Hyperlipidemia, unspecified; E11.9 Type 2 diabetes mellitus without complications; M19.90 Unspecified osteoarthritis, unspecified site; E07.9 Disorder of thyroid, unspecified; N40.0 Benign prostatic hyperplasia without lower urinary tract symptoms; F31.9 Bipolar disorder, unspecified; F41.9 Anxiety disorder, unspecified; F41.0 Panic disorder [episodic paroxysmal anxiety]; F17.200 Nicotine dependence, unspecified, uncomplicated; Z79.84 Long term (current) use of oral hypoglycemic drugs; Z79.899 Other long term (current) drug therapy
CPT/HCPCS: 71020; 87502; 94640; 99284

== ENCOUNTER → 2017-02-06 | Outpatient (CLI) | payer OTHER ==
--- NOTE | 2017-02-06 23:05 | MR ---
MRI CERVICAL SPINE: CLINICAL HISTORY: Neck pain per order. Headache with neck pain with left arm weakness for 6 years, hi story of prior surgery per patient. TECHNIQUE: Multiplanar, multisequence imaging of the cervical spine is performed without IV contrast. COMPARISON: None. FINDINGS: Sagittal images of the cervical spine show the craniocervical junction to appear within nor mal limits. The cervical and upper thoracic spinal cord is normal in course, caliber, and signal. V ertebral alignment is anatomic. Artifact from anterior fusion plate C5-C6 level is present. The verte bral body and intravertebral disk heights are normal above and below surgical levels. There is mild to moderate anterior spurring C3 and C4 vertebra. No large posterior disc herniations are seen on sag ittal images. The bone marrow signal intensity is within normal limits. Axial images show the C2-C3 level to appear within normal limits. Axial images at C3-C4 level show broad-based posterior disc protrusion mildly effacing anterior theca l sac with moderate right and mild left-sided neural foraminal narrowing felt present. Axial images at C4-C5 level show left paracentral disc protrusion effacing anterolateral thecal sac w ith moderate to severe left greater than right neural foraminal narrowing felt present. Axial images at C5-C6 level show artifact from anterior fusion plate, there is asymmetric mild to mod erate right-sided neural foraminal narrowing. Spinal canal is preserved. Axial images at C6-C7 and C7-T1 levels are felt within normal limits. IMPRESSION: Postsurgical changes C5-C6 level with satisfactory alignment. Degenerative changes are no juanis C3-C4 and C4-C5 level above level of surgery as detailed above.
== END | disposition home or self-care (01) ==
LOC: RADMRIMAIN 17:50
PROVIDERS: ATTEND Internal Medicine
DX: M47.812 Spondylosis without myelopathy or radiculopathy, cervical region (principal); Z98.1 Arthrodesis status
CPT/HCPCS: 72141

== ENCOUNTER 2017-05-07 12:37 | Inpatient (IN) | payer OTHER ==
[2017-05-07] MEDS ORDERED: ONDANSETRON 4 MG/2 ML VIAL IVP STA (12:56)
[2017-05-07] MEDS ORDERED: PANTOPRAZOLE 40 MG/10 ML VIAL IVP STA (12:56)
[2017-05-07] MEDS ORDERED: MORPHINE SULFATE 10 MG/ML SYRINGE IV STA (12:56)
[2017-05-07] MEDS ORDERED: SODIUM CHLORIDE 0.9% 1,000 ML IV STA ×3 (12:56→14:37)
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
[2017-05-07 13:50] LABS: Basophils % (A) 0 %; CH 34.5; CHCM 33.8; Eosinophils # (A) 0.2 k/uL (0-0.7); Eosinophils % (A) 2 %; HCT 48.2 % (39.0-53.0); HDW 2.12; Luc # (Auto) 0.08; Luc % (Auto) 1; Lymphocytes # (A) 0.9 k/uL (1.0-4.8); Lymphocytes % (A) 7 %; MCHC 33.2 g/dL (31.0-37.0); MCV 102.6 fL (80.0-100.0); Macrocytosis Slight; Mean Platelet Volume 6.9; Monocytes # (A) 0.4 k/uL (0-1.0); Monocytes % (A) 3 %; Neutrophils # (A) 11.7 k/uL (1.3-7.7); Neutrophils % (A) 88 %; RBC 4.69 m/uL (4.30-5.90); RDW 13.7 % (11.5-15.5); WBC 13.3 k/uL (3.8-10.6); WBC (Perox) 13.07
[2017-05-07 13:58] LABS: ALT 35 U/L (21-72); AST 23 U/L (17-59); Alkaline Phosphatase 74 U/L (38-126); Amylase 76 U/L (30-110); Anion Gap 10 mmol/L; Blood Urea Nitrogen 17 mg/dL (9-20); Carbon Dioxide 24 mmol/L (22-30); Chloride 99 mmol/L (98-107); Glucose 222 mg/dL (74-99); Non-African American GFR(MDRD) >60 (>60 ml/min/1.73 sqM); Potassium 4.5 mmol/L (3.5-5.1); Sodium 133 mmol/L (137-145); Total Bilirubin 0.6 mg/dL (0.2-1.3); Total Protein 7.2 g/dL (6.3-8.2)
[2017-05-07 14:09] LABS: Creatine Kinase 121 U/L (55-170)
[2017-05-07 14:22] LABS: Troponin I <0.012 ng/mL (0.000-0.034)
[2017-05-07 14:28] LABS: Creatine Kinase MB 2.8 ng/mL (0.0-2.4)
[2017-05-07] MEDS ORDERED: KETOROLAC 30 MG/ML 1 ML VIAL IVP STA (14:37)
[2017-05-07] MEDS ORDERED: MORPHINE SULFATE 10 MG/ML SYRINGE IVP STA (14:37)
--- NOTE | 2017-05-07 15:54 | US ---
EXAMINATION TYPE: US gallbladder DATE OF EXAM: 05/07/2017 COMPARISON: NONE CLINICAL HISTORY: Pain. Severe abd and back pain EXAM MEASUREMENTS: Liver Length: 19.6 cm Gallbladder Wall: 0.3 cm CBD: 0.8 cm Right Kidney: 13.9 x 5.2 x 4.9 cm Pancreas: unable to view due to bowel gas Liver: enlarged Gallbladder: mobile debris seen with borderline wall thickness Evidence for sonographic Yang's sign: YES CBD: dilated with no obvious obstruction, could not view end near pancreas head due to gas Right Kidney: larger in size There is no ascites. IMPRESSION: Hepatomegaly. Tumefactive sludge likely within the gallbladder, gallbladder is hydropic w ith abnormal wall thickening, correlate for cholecystitis. Dilated common bile duct, gastroenterology or surgical consult suggested. Limited exam.
[2017-05-07] MEDS ORDERED: HYDROmorphone 1 MG/ML 1 ML SYRINGE IVP PRN (16:19)
[2017-05-07] MEDS ORDERED: HYDROmorphone 2 MG/ML 1 ML SYRINGE IVP STA (16:19)
--- NOTE | 2017-05-07 16:24 | ED ---
Medical Decision Making - Medical Decision Making 36 male to ER for evaluation. Patient feels he has acute hepatitis. Lipase 500. Patient continued complaining of abdominal pain. At this point ultrasound of gallbladder was ordered which shows positive cholecystitis. Patient will be admitted for pain control and surgical evaluation and treatment - Lab Data Result diagrams: 05/07/17 13:36 05/07/17 13:36 Lab Results 05/07/17 05/07/17 05/07/17 Range/Units 13:36 13:36 13:36 WBC 13.3 H (3.8-10.6) k/uL RBC 4.69 (4.30-5.90) m/uL Hgb 16.0 (13.0-17.5) gm/dL Hct 48.2 (39.0-53.0) % MCV 102.6 H (80.0-100.0) fL MCH 34.0 (25.0-35.0) pg MCHC 33.2 (31.0-37.0) g/dL RDW 13.7 (11.5-15.5) % Plt Count 344 (150-450) k/uL Neutrophils % 88 % Lymphocytes % 7 % Monocytes % 3 % Eosinophils % 2 % Basophils % 0 % Neutrophils # 11.7 H (1.3-7.7) k/uL Lymphocytes # 0.9 L (1.0-4.8) k/uL Monocytes # 0.4 (0-1.0) k/uL Eosinophils # 0.2 (0-0.7) k/uL Basophils # 0.0 (0-0.2) k/uL Macrocytosis Slight Sodium 133 L (137-145) mmol/L Potassium 4.5 (3.5-5.1) mmol/L Chloride 99 (98-107) mmol/L Carbon Dioxide 24 (22-30) mmol/L Anion Gap 10 mmol/L BUN 17 (9-20) mg/dL Creatinine 0.87 (0.66-1.25) mg/dL Est GFR (MDRD) Af Amer >60 (>60 ml/min/1.73 sqM) Est GFR (MDRD) Non-Af >60 (>60 ml/min/1.73 sqM) Glucose 222 H (74-99) mg/dL Plasma Lactic Acid Severo (0.7-2.0) mmol/L Calcium 9.0 (8.4-10.2) mg/dL Total Bilirubin 0.6 (0.2-1.3) mg/dL AST 23 (17-59) U/L ALT 35 (21-72) U/L Alkaline Phosphatase 74 (38-126) U/L Total Creatine Kinase 121 (55-170) U/L CK-MB (CK-2) 2.8 H* (0.0-2.4) ng/mL CK-MB (CK-2) Rel Index 2.3 Troponin I <0.012 (0.000-0.034) ng/mL Total Protein 7.2 (6.3-8.2) g/dL Albumin 4.4 (3.5-5.0) g/dL Amylase 76 (30-110) U/L Lipase 562 H (23-300) U/L 05/07/17 Range/Units 13:36 WBC (3.8-10.6) k/uL RBC (4.30-5.90) m/uL Hgb (13.0-17.5) gm/dL Hct (39.0-53.0) % MCV (80.0-100.0) fL MCH (25.0-35.0) pg MCHC (31.0-37.0) g/dL RDW (11.5-15.5) % Plt Count (150-450) k/uL Neutrophils % % Lymphocytes % % Monocytes % % Eosinophils % % Basophils % % Neutrophils # (1.3-7.7) k/uL Lymphocytes # (1.0-4.8) k/uL Monocytes # (0-1.0) k/uL Eosinophils # (0-0.7) k/uL Basophils # (0-0.2) k/uL Macrocytosis Sodium (137-145) mmol/L Potassium (3.5-5.1) mmol/L Chloride (98-107) mmol/L Carbon Dioxide (22-30) mmol/L Anion Gap mmol/L BUN (9-20) mg/dL Creatinine (0.66-1.25) mg/dL Est GFR (MDRD) Af Amer (>60 ml/min/1.73 sqM) Est GFR (MDRD) Non-Af (>60 ml/min/1.73 sqM) Glucose (74-99) mg/dL Plasma Lactic Acid Severo 1.0 (0.7-2.0) mmol/L Calcium (8.4-10.2) mg/dL Total Bilirubin (0.2-1.3) mg/dL AST (17-59) U/L ALT (21-72) U/L Alkaline Phosphatase (38-126) U/L Total Creatine Kinase (55-170) U/L CK-MB (CK-2) (0.0-2.4) ng/mL CK-MB (CK-2) Rel Index Troponin I (0.000-0.034) ng/mL Total Protein (6.3-8.2) g/dL Albumin (3.5-5.0) g/dL Amylase (30-110) U/L Lipase (23-300) U/L - Radiology Data Radiology results: report reviewed (Ultrasound is positive for cholecystitis), image reviewed Disposition Clinical Impression: Pancreatitis, Abdominal pain, Acute cholecystitis Disposition: ADMITTED IP TO THIS [facility] Condition: Fair Instructions: Abdominal Pain (ED) Referrals: Renee Ashley MD [Primary Care Provider] - 1-2 days
[2017-05-07] MEDS ORDERED: SODIUM CHLORIDE 0.9% 1,000 ML IV ONE (16:25)
[2017-05-07 18:02] LABS: Glucose,Whole Blood 171 mg/dL (75-99)
[2017-05-07] MEDS ORDERED: IPRATROPIUM-ALBUTEROL 3 ML NEB INHALATION PRN (18:39)
[2017-05-07] MEDS ORDERED: LORazepam 2 MG/ML INJ IV PRN (18:40)
[2017-05-07] MEDS ORDERED: THIAMINE 100 MG/ML 2 ML VIAL IM STA (18:40)
[2017-05-07] MEDS: PIPERACILLIN-TAZOBACTAM 3.375 GM in DEXTROSE/WATER 1 50ML.BAG IVPB SCH (19:35)
[2017-05-07] MEDS: METOPROLOL TARTRATE 25 MG TAB PO SCH (19:36)
[2017-05-07] MEDS: INSULIN LISPRO (humaLOG) 300 UNIT/3 ML VIAL SQ SCH (19:41)
[2017-05-07] MEDS: HYDROmorphone 1 MG/ML 1 ML SYRINGE IVP PRN ×2 (19:55→23:12)
[2017-05-07] MEDS: IPRATROPIUM-ALBUTEROL 3 ML NEB INHALATION SCH (19:59)
[2017-05-07 20:35] LABS: Glucose,Whole Blood 165 mg/dL (75-99)
[2017-05-07] MEDS: THIAMINE 100 MG TAB PO SCH (22:42)
[2017-05-07] MEDS: INSULIN GLARGINE 100 UNIT/ML 10 ML VIAL SQ SCH (22:42)
[2017-05-07] MEDS: ONDANSETRON 4 MG/2 ML VIAL IVP PRN (22:42)
[2017-05-07] MEDS: IOHEXOL 350 MG/ML 25 ML BOTTLE (ORAL USE) PO PRN (23:12)
[2017-05-08] MEDS: INSULIN LISPRO (humaLOG) 300 UNIT/3 ML VIAL SQ SCH ×4 (00:13→17:57)
[2017-05-08] MEDS: PIPERACILLIN-TAZOBACTAM 3.375 GM in DEXTROSE/WATER 1 50ML.BAG IVPB SCH ×3 (00:13→16:49)
[2017-05-08] MEDS: IOHEXOL 350 MG/ML 25 ML BOTTLE (ORAL USE) PO PRN (00:13)
[2017-05-08] MEDS: LORazepam 2 MG/ML INJ IV PRN ×6 (00:22→20:42)
[2017-05-08 00:28] LABS: Glucose,Whole Blood 199 mg/dL (75-99)
--- NOTE | 2017-05-08 01:05 | XR ---
EXAMINATION TYPE: XR chest 2V DATE OF EXAM: 05/08/2017 COMPARISON: 09/08/2016 HISTORY: Abdominal pain TECHNIQUE: Frontal and lateral views of the chest are obtained. FINDINGS: There is no heart failure nor confluent pneumonic infiltrate. Costophrenic angles are clara r. Bony thorax is intact. Old left-sided healed rib fractures noted. IMPRESSION: No active cardiac pulmonary disease. There is clearing of the patchy pneumonia in both l ungs compared to last exam.
--- NOTE | 2017-05-08 01:11 | CT ---
EXAMINATION TYPE: CT abdomen pelvis wo con DATE OF EXAM: 05/08/2017 COMPARISON: NONE HISTORY: cholilithiasis. Abdominal pain. CT DLP: 318.80 mGycm Automated exposure control for dose reduction was used. TECHNIQUE: Helical acquisition of images was performed from the lung bases through the pelvis. FINDINGS: There is mild subsegmental atelectasis at the lung bases. There is no pleural effusion. Liver shows no focal defect. Gallbladder is distended. There is diffuse fat stranding around the enti re pancreas. There are numerous calcified splenic granulomata. Left kidney is absent. The right kidney shows no hydronephrosis. There is no sign of retroperitoneal adenopathy. There is no ascites. Appendix appears normal. Bladder distends smoothly. There is no sign of a pelvic mass. There is no free fluid in the pelvis. I see no bony destructive process. IMPRESSION: DISTENDED GALLBLADDER. NO DILATED DUCTS. INFLAMMATORY CHANGES AROUND THE ENTIRE PANCREAS CONSISTENT W ITH PANCREATITIS. THIS APPEARS NEW COMPARED TO OLD CT SCAN. THERE IS CLEARING OF THE DILATED LARGE JAMES WEL AND FLUID LEVELS COMPARED TO OLD EXAM.
[2017-05-08 02:10] LABS: Appearance,Urine Cloudy (Clear); Bilirubin,Urine Negative (Negative); Glucose,Urine (UA) 4+ (Negative); Ketones,Urine 1+ (Negative); Leukocyte Esterase,Urine Small (Negative); Mucus,Urine Occasional /hpf; Nitrite,Urine Negative (Negative); Particle Count 4102; Protein,Urine 1+ (Negative); RBC,Urine 2 /hpf (0-5); Specific Gravity,Urine 1.024 (1.001-1.035); UA Billing (MACRO vs. MICRO) MICRO; Urobilinogen,Urine <2.0 mg/dL (<2.0); WBC,Urine 29 /hpf (0-5)
[2017-05-08] MEDS: HYDROmorphone 1 MG/ML 1 ML SYRINGE IVP PRN ×6 (02:16→22:39)
[2017-05-08] MEDS: ONDANSETRON 4 MG/2 ML VIAL IVP PRN ×3 (05:31→21:57)
[2017-05-08 06:15] LABS: Glucose,Whole Blood 207 mg/dL (75-99)
[2017-05-08] MEDS: LEVOTHYROXINE 50 MCG TAB PO SCH (06:21)
--- NOTE | 2017-05-08 07:17 | CONS ---
CONSULTATION DATE OF SERVICE: 05/07/2017 CHIEF COMPLAINT: Abdominal pain. HISTORY OF PRESENT ILLNESS: This 36-year-old gentleman with a past medical history of history of diabetes, GERD, hypertension, hyperlipidemia, history of DJD, history of seizure disorder, history of enlarged prostate, history of anxiety bipolar depression being followed by Dr. Ashley in the outpatient setting also had history of significant alcohol. The patient is complaining of severe abdominal pain especially in the epigastrium and right upper quadrant hypochondrium for the last 2 to 3 days. The pain is radiating to the back and diffusely around the abdomen. Because of lack of improvement, the patient came to [facility] and admitted for further evaluation and treatment. Ultrasound of the abdomen showed possible hydropic gallbladder. PAST MEDICAL HISTORY: Noted. MEDICATIONS: Home medications are: 1. Atrovent 2 puffs q.i.d. 2. Lantus 42 units subcutaneous daily. 3. Neurontin 300 mg b.i.d. 4. Depo-testosterone 300 mg IM q.14 days. 5. Zocor 20 mg daily. 6. Metoprolol 25 mg b.i.d. 7. Metformin 1000 mg b.i.d. 8. Synthroid 50 mcg p.o. daily. 9. Ventolin 1 to 2 puffs q.6 p.r.n. ALLERGIES: Allergies are none. FAMILY HISTORY: History of cancer, hypertension, hypercholesterolemia. SOCIAL HISTORY: History of smoking and history of alcohol intake up to 2 beers a day according to him. Patient used to drink heavily. REVIEW OF SYSTEMS: ENT: No diminished hearing or diminished vision. CARDIOVASCULAR: No angina. RESPIRATORY; Occasional cough. GI: As mentioned earlier. : No dysuria. NERVOUS SYSTEM: No numbness or weakness. ALLERGY/IMMUNOLOGY: No asthma or hayfever. MUSCULOSKELETAL: As mentioned earlier. HEMATOLOGY: No history of anemia. ENDOCRINE: Diabetes mellitus. CONSTITUTIONAL: As mentioned earlier. DERMATOLOGY: Negative. RHEUMATOLOGY: Negative. PSYCHIATRY: As mentioned earlier. PHYSICAL EXAMINATION: The patient is a alert, oriented x3. Pulse is 90, blood pressure 165/104, respirations 16, temperature 97.5, pulse ox 96% on room air. HEENT: Conjunctivae normal. NECK; No jugular venous distention. CARDIOVASCULAR: S1, S2 muffled. RESPIRATORY: Breath sounds diminished at the bases. A few rhonchi, no crackles. ABDOMEN: Soft. Mild diffuse tenderness in the epigastrium and right hypochondrium. No guarding. No rigidity. No mass palpable. Bowel sounds present. No ascites. LEGS: No edema, no swelling. NERVOUS SYSTEM; Higher function as mentioned. Moves all 4 limbs. No focal motor or sensory deficits. LYMPHATICS: No lymphadenopathy of the neck, axillae or groin. SKIN: No ulcer, rash or bleeding. LABS: WBC 13.3, hemoglobin 16. Glucose 222. CK-MB is 2.8. Lipase is 562. ASSESSMENT 1. Acute abdominal pain, possible acute cholecystitis. 2. Possible acute mild pancreatitis. 3. Increased WBC. 4. Diabetes mellitus type 2. 5. History of nicotine dependence. 6. History of EtOH. 7. Gastroesophageal reflux disease. 8. Hypertension. 9. Hyperlipidemia. 10.History of degenerative joint disease. 11.History of seizure disorder. 12.History of syncope. 13.Hypothyroidism. 14.History of back surgery, degenerative joint disease. 15.History of anxiety, bipolar depression, panic disorder. RECOMMENDATION AND DISCUSSION: This 36-year-old gentleman presented with abdominal pain and possibility of cholecystitis. I would recommend to continue current medications. Agree with broad- spectrum IV antibiotics and as well as symptomatic treatment of the pain and DVT prophylaxis and proton pump inhibitors as well. I would also recommend p.shani Marino also. Otherwise we will follow the patient closely with you. Thank you Dr. Cuellar for letting us participate in the care of this patient. See orders for further details. MMODL / IJN: [id number] /
[2017-05-08] MEDS: IPRATROPIUM-ALBUTEROL 3 ML NEB INHALATION SCH ×4 (07:18→20:51)
[2017-05-08] MEDS: METOPROLOL TARTRATE 25 MG TAB PO SCH ×2 (07:45→20:31)
[2017-05-08] MEDS: HEPARIN SODIUM,PORCINE 5,000 UNIT/ML 1 ML VIAL SQ SCH ×2 (07:45→20:31)
[2017-05-08] MEDS: PANTOPRAZOLE 40 MG/10 ML VIAL IVP SCH (07:46)
[2017-05-08 08:19] LABS: Basophils % (A) 0 %; CH 35.6; CHCM 33.3; Eosinophils # (A) 0.1 k/uL (0-0.7); Eosinophils % (A) 1 %; HDW 2.36; HGB 14.9 gm/dL (13.0-17.5); Luc # (Auto) 0.12; Luc % (Auto) 1; Lymphocytes # (A) 1.1 k/uL (1.0-4.8); Lymphocytes % (A) 8 %; MCH 34.8 pg (25.0-35.0); MCHC 32.4 g/dL (31.0-37.0); MCV 107.2 fL (80.0-100.0); Macrocytosis Moderate; Mean Platelet Volume 6.2; Monocytes # (A) 0.8 k/uL (0-1.0); Monocytes % (A) 6 %; Neutrophils % (A) 85 %; RBC 4.29 m/uL (4.30-5.90); RDW 12.5 % (11.5-15.5); WBC 14.1 k/uL (3.8-10.6); WBC (Perox) 13.86
[2017-05-08 08:32] LABS: ALT 32 U/L (21-72); AST 26 U/L (17-59); Alkaline Phosphatase 59 U/L (38-126); Amylase 166 U/L (30-110); Anion Gap 9 mmol/L; Blood Urea Nitrogen 13 mg/dL (9-20); Calcium 8.6 mg/dL (8.4-10.2); Carbon Dioxide 22 mmol/L (22-30); Chloride 102 mmol/L (98-107); Glucose 116 mg/dL (74-99); Non-African American GFR(MDRD) >60 (>60 ml/min/1.73 sqM); Potassium 3.9 mmol/L (3.5-5.1); Sodium 133 mmol/L (137-145); Total Bilirubin 0.8 mg/dL (0.2-1.3); Total Protein 6.5 g/dL (6.3-8.2)
[2017-05-08] MEDS ORDERED: INSULIN GLARGINE 100 UNIT/ML 10 ML VIAL SQ SCH (09:00)
[2017-05-08 10:49] VITALS: BMI 24.3
[2017-05-08] MEDS: NICOTINE 21MG/24HR PATCH TRANSDERM SCH (10:52)
[2017-05-08 12:00] LABS: Glucose,Whole Blood 125 mg/dL (75-99)
[2017-05-08] MEDS: THIAMINE 100 MG TAB PO SCH ×2 (12:44→17:58)
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
[2017-05-08] MEDS ORDERED: cloNIDine HCL 0.1 MG TAB PO PRN (14:03)
[2017-05-08] MEDS: SODIUM CHLORIDE 0.9% 1,000 ML IV SCH ×2 (14:46→20:06)
[2017-05-08] MEDS: cloNIDine HCL 0.1 MG TAB PO SCH ×2 (15:54→21:56)
--- NOTE | 2017-05-08 16:37 | PN ---
PROGRESS NOTE DATE OF SERVICE: 05/08/17. INTERVAL HISTORY: This 36-year-old gentleman admitted with abdominal pain possible acute cholecystitis complaining of severe abdominal pain over the weekend. Patient had multiple pain medications also. The CT scan showed evidence of pancreatitis. The patient also had significant alcohol issues as well. Amylase and lipase elevated. Dr. Cuellar is following the patient closely and not planning any cholecystectomy currently because of the issue of the pancreatitis. A chest x-ray was also done which showed no active cardiopulmonary disease at this time. PAST MEDICAL HISTORY: Reviewed. REVIEW OF SYSTEMS: CARDIOVASCULAR: No angina. RESPIRATORY: As mentioned earlier. GI: As mentioned earlier. : No dysuria. NERVOUS SYSTEM: No numbness or weakness. CURRENT MEDICATIONS: 1. DuoNeb q.i.d. and p.r.n. 2. Heparin 5000 subcu b.i.d. 3. Dilaudid 1 mg q.3h p.r.n. 4. Lantus q.h.s. 5. Humalog scale. 6. Synthroid 50 mcg. 7. Ativan 1 mg p.r.n. 8. Lopressor 25 mg p.o. b.i.d. 10.Zofran 4 mg p.r.n. 11.Zosyn 3.65 IV q.8h. 12.Vitamin B1 100 mg p.o. b.i.d. PHYSICAL EXAM: Patient is alert, oriented x3. Pulse 66, blood pressure 181/112, respiration 18, temperature 98 degrees, pulse ox 99% on room air. HEENT: Conjunctivae normal. Oral mucosa moist. NECK: No jugular venous distention. CARDIOVASCULAR: S1, S2. No S3, no S4. RESPIRATORY: Breath sounds diminished at the bases. A few scattered rhonchi. No crackles. ABDOMEN: Soft. Mild diffuse tenderness present. No rigidity, no guarding, no mass palpable, no ascites. LEGS: No edema, no swelling. NERVOUS SYSTEM: Higher functions as mentioned earlier. Moves all four limbs. No focal deficits. LYMPHATICS: No lymphadenopathy in the neck, axillae or groin. LABS: At this time, WBC 14.1, sodium 133. Amylase is 166 and lipase is 1159. ASSESSMENT: 1. Severe abdominal pain with acute pancreatitis with acute cholecystitis. 2. Increased WBC. 3. Diabetes mellitus type 2. 4. History nicotine dependence. 5. History EtOH. 6. Gastroesophageal reflux disease. 7. Hypertension. 8. Hyperlipidemia. 9. History degenerative joint disease. 10.Seizure disorder. 11.History of syncope. 12.Hypothyroidism. 13.History of back pain and degenerative joint disease. 14.History of anxiety, bipolar, depression, panic disorder. RECOMMENDATIONS AND DISCUSSION: I recommend to continue current management and continue with symptomatic treatment of pain. Continue with monitoring labs. Ativan p.r.n. Pain medications, DVT prophylaxis. Guarded prognosis because of multiple complications. Further recommendations to follow. Broad-spectrum IV antibiotics. MMODL / IJN: [id number] / JAVIER
[2017-05-08 17:25] LABS: Glucose,Whole Blood 99 mg/dL (75-99)
[2017-05-08] MEDS: GABAPENTIN 300 MG CAP PO SCH (20:31)
[2017-05-08] MEDS: INSULIN GLARGINE 100 UNIT/ML 10 ML VIAL SQ SCH (20:41)
[2017-05-09] MEDS: PIPERACILLIN-TAZOBACTAM 3.375 GM in DEXTROSE/WATER 1 50ML.BAG IVPB SCH ×3 (00:05→18:09)
[2017-05-09 00:25] LABS: Glucose,Whole Blood 80 mg/dL (75-99)
[2017-05-09] MEDS: INSULIN LISPRO (humaLOG) 300 UNIT/3 ML VIAL SQ SCH ×4 (00:27→18:09)
[2017-05-09] MEDS: HYDROmorphone 1 MG/ML 1 ML SYRINGE IVP PRN ×7 (02:15→22:25)
[2017-05-09] MEDS: SODIUM CHLORIDE 0.9% 1,000 ML IV SCH ×2 (03:59→09:12)
[2017-05-09] MEDS: ONDANSETRON 4 MG/2 ML VIAL IVP PRN ×2 (03:59→15:46)
[2017-05-09] MEDS: LEVOTHYROXINE 50 MCG TAB PO SCH (06:14)
[2017-05-09 06:31] LABS: Glucose,Whole Blood 56 mg/dL (75-99)
[2017-05-09] MEDS ORDERED: DEXTROSE 50%-WATER 50 ML SYRINGE IVP STA (06:31)
[2017-05-09] MEDS ORDERED: DEXTROSE 10 % IN WATER 250 ML IV STA (06:37)
[2017-05-09] MEDS: IPRATROPIUM-ALBUTEROL 3 ML NEB INHALATION SCH ×5 (07:19→20:49)
[2017-05-09 07:32] LABS: Glucose,Whole Blood 155 mg/dL (75-99)
[2017-05-09 07:39] LABS: Basophils % (A) 0 %; CH 34.5; CHCM 32.4; Eosinophils # (A) 0.1 k/uL (0-0.7); Eosinophils % (A) 1 %; HCT 49.1 % (39.0-53.0); HDW 2.21; HGB 15.6 gm/dL (13.0-17.5); Luc # (Auto) 0.11; Luc % (Auto) 1; Lymphocytes # (A) 1.6 k/uL (1.0-4.8); Lymphocytes % (A) 15 %; MCHC 31.8 g/dL (31.0-37.0); MCV 106.8 fL (80.0-100.0); Macrocytosis Moderate; Monocytes # (A) 0.6 k/uL (0-1.0); Monocytes % (A) 6 %; Neutrophils # (A) 8.1 k/uL (1.3-7.7); Neutrophils % (A) 78 %; RBC 4.59 m/uL (4.30-5.90); RDW 13.4 % (11.5-15.5); WBC 10.4 k/uL (3.8-10.6); WBC (Perox) 10.22
[2017-05-09 07:51] LABS: AST 23 U/L (17-59); Alkaline Phosphatase 44 U/L (38-126); Amylase 97 U/L (30-110); Anion Gap 8 mmol/L; Blood Urea Nitrogen 8 mg/dL (9-20); Carbon Dioxide 22 mmol/L (22-30); Chloride 101 mmol/L (98-107); Glucose 154 mg/dL (74-99); Non-African American GFR(MDRD) >60 (>60 ml/min/1.73 sqM); Potassium 4.2 mmol/L (3.5-5.1); Sodium 131 mmol/L (137-145); Total Bilirubin 0.7 mg/dL (0.2-1.3); Total Protein 5.3 g/dL (6.3-8.2)
[2017-05-09 07:59] LABS: ALT 32 U/L (21-72)
[2017-05-09] MEDS: METOPROLOL TARTRATE 25 MG TAB PO SCH ×2 (09:10→21:20)
[2017-05-09] MEDS: HEPARIN SODIUM,PORCINE 5,000 UNIT/ML 1 ML VIAL SQ SCH ×2 (09:11→21:20)
[2017-05-09] MEDS: cloNIDine HCL 0.1 MG TAB PO SCH ×3 (09:11→21:19)
[2017-05-09] MEDS: GABAPENTIN 300 MG CAP PO SCH ×2 (09:11→21:19)
[2017-05-09] MEDS: NICOTINE 21MG/24HR PATCH TRANSDERM SCH (09:12)
[2017-05-09] MEDS: PANTOPRAZOLE 40 MG/10 ML VIAL IVP SCH (09:12)
[2017-05-09] MEDS: LORazepam 2 MG/ML INJ IV PRN ×3 (09:22→21:20)
[2017-05-09 11:55] LABS: Glucose,Whole Blood 53 mg/dL (75-99)
--- NOTE | 2017-05-09 12:00 | P.PN ---
Subjective Progress Note Date: 05/09/17 Principal diagnosis: Pancreatitis Patient says his pain is only slightly better. Still nauseated. Pain is in the mid upper abdomen radiating to the back. Pancreatic enzymes are improved. White blood cell count is improved. Objective - Vital Signs Vital signs: Vital Signs Temp 98.5 F 05/09/17 07:00 Pulse 95 05/09/17 08:00 Resp 18 05/09/17 08:00 BP 127/84 05/09/17 07:00 Pulse Ox 97 05/09/17 07:00 Intake & Output 05/08/17 05/09/17 05/09/17 18:59 06:59 18:59 Intake Total 1200 1840 Balance 1200 1840 Weight 77.111 kg 77.111 kg Intake: Intake, IV Titration 1200 1250 Amount Piperacillin-Tazobactam 3 50 .375 gm In Dextrose/Water 1 50ml.bag @ 12.5 mls/hr IVPB Q8HR [facility]UDEL Rx#: [id number] Sodium Chloride 0.9% 1, 1200 1200 000 ml @ 150 mls/hr IV . Q6H40M RAUDEL Rx#:[id number] Oral 0 590 Other: Voiding Method Toilet Toilet Toilet # Voids 3 2 1 - Exam Abdomen: Soft, nondistended, mild tenderness epigastrium - Labs CBC & Chem 7: 05/09/17 06:56 05/09/17 06:56 Labs: Abnormal Lab Results - Last 24 Hours (Table) 05/08/17 05/08/17 05/08/17 Range/Units 01:46 07:44 11:58 MCV (80.0-100.0) fL Neutrophils # (1.3-7.7) k/uL Sodium (137-145) mmol/L BUN (9-20) mg/dL Glucose (74-99) mg/dL POC Glucose (mg/dL) 125 H (75-99) mg/dL Hemoglobin A1c 7.3 H (4.0-6.0) % Calcium (8.4-10.2) mg/dL Total Protein (6.3-8.2) g/dL Albumin (3.5-5.0) g/dL Lipase (23-300) U/L Urine Opiates Screen Positive H (Negative) ng/mL U Cannabinoids Screen Positive H (Negative) ng/mL 05/09/17 05/09/17 05/09/17 Range/Units 06:16 06:56 06:56 MCV 106.8 H (80.0-100.0) fL Neutrophils # 8.1 H (1.3-7.7) k/uL Sodium 131 L (137-145) mmol/L BUN 8 L (9-20) mg/dL Glucose 154 H (74-99) mg/dL POC Glucose (mg/dL) 56 L (75-99) mg/dL Hemoglobin A1c (4.0-6.0) % Calcium 8.0 L (8.4-10.2) mg/dL Total Protein 5.3 L (6.3-8.2) g/dL Albumin 2.8 L (3.5-5.0) g/dL Lipase 390 H (23-300) U/L Urine Opiates Screen (Negative) ng/mL U Cannabinoids Screen (Negative) ng/mL 05/09/17 Range/Units 07:13 MCV (80.0-100.0) fL Neutrophils # (1.3-7.7) k/uL Sodium (137-145) mmol/L BUN (9-20) mg/dL Glucose (74-99) mg/dL POC Glucose (mg/dL) 155 H (75-99) mg/dL Hemoglobin A1c (4.0-6.0) % Calcium (8.4-10.2) mg/dL Total Protein (6.3-8.2) g/dL Albumin (3.5-5.0) g/dL Lipase (23-300) U/L Urine Opiates Screen (Negative) ng/mL U Cannabinoids Screen (Negative) ng/mL Microbiology - Last 24 Hours (Table) 05/07/17 23:20 Blood Culture - Preliminary Blood No Growth after 24 hours 05/08/17 01:46 Urine Culture - Preliminary Urine,Voided Assessment and Plan (1) Pancreatitis Narrative/Plan: Continue nothing by mouth. Recheck labs tomorrow. Likely plan shorter-term interval cholecystectomy. Current Visit: Yes Status: Acute Code(s): K85.90 - ACUTE PANCREATITIS WITHOUT NECROSIS OR INFECTION, UNSP SNOMED Code(s): 44765901
[2017-05-09] MEDS: THIAMINE 100 MG TAB PO SCH ×2 (12:17→16:41)
[2017-05-09 12:35] LABS: Glucose,Whole Blood 55 mg/dL (75-99)
[2017-05-09 12:35] LABS: Glucose,Whole Blood 64 mg/dL (75-99)
--- NOTE | 2017-05-09 14:12 | PN ---
PROGRESS NOTE DATE OF SERVICE: 05/09/2017 INTERVAL HISTORY: This 36-year-old gentleman who was admitted with severe abdominal pain also had some pancreatitis and cholecystitis also. Dr. Cuellar is following the patient closely. Contemplating possible cholecystectomy as an outpatient. No chest pain. No palpitations. No fever. PHYSICAL EXAM: Alert and oriented times three. Pulse 95, blood pressure 127/85, respiration 18, temperature 98.4, pulse ox 97% on room air. HEENT is conjunctivae normal. Oral mucosa moist. Neck is no jugular venous distention. No carotid bruit. No lymph node enlargement. Cardiovascular system: S1, S2. Respirations: Breath sounds diminished in the bases. No rhonchi and no crackles. ABDOMEN: Soft, mild diffuse tenderness in the epigastrium. No mass palpable. Legs are no edema. No swelling. Central nervous system: No focal deficits. LABS: CBC within normal limits. Accu-Cheks are noted. ASSESSMENT: 1. Severe abdominal pain with acute pancreatitis with acute cholecystitis. 2. Increased WBC. 3. Hypoglycemia. 4. Diabetes type 2. 5. History of nicotine dependence. 6. History of ETOH. 7. Gastroesophageal reflux disease. 8. Hypertension. 9. Hyperlipidemia. 10.History degenerative joint disease. 11.Seizure disorder. 12.Syncope. 13.Hypothyroidism. 14.History back pain/degenerative joint disease. 15.History of anxiety, bipolar depression and panic disorder. RECOMMENDATIONS AND DISCUSSION: Recommend to continue current medication, continue to monitor. Symptomatic treatment. Otherwise at this time I recommend to reduce the dose of nighttime Lantus dosage and IV fluids. Closely monitor. Prognosis guarded. Further recommendations to follow. See orders for details. MMODL / IJN: [id number] /
[2017-05-09] MEDS: D5W WITH KCL 20 MEQ/L 1,000 ML IV SCH (14:19)
[2017-05-09 17:33] LABS: Glucose,Whole Blood 163 mg/dL (75-99)
[2017-05-09] MEDS: INSULIN GLARGINE 100 UNIT/ML 10 ML VIAL SQ SCH (21:09)
[2017-05-10] MEDS: PIPERACILLIN-TAZOBACTAM 3.375 GM in DEXTROSE/WATER 1 50ML.BAG IVPB SCH ×3 (00:55→15:42)
[2017-05-10] MEDS: D5W WITH KCL 20 MEQ/L 1,000 ML IV SCH ×3 (00:58→13:15)
[2017-05-10 01:21] LABS: Glucose,Whole Blood 177 mg/dL (75-99)
[2017-05-10] MEDS: INSULIN LISPRO (humaLOG) 300 UNIT/3 ML VIAL SQ SCH ×4 (01:40→18:08)
[2017-05-10] MEDS: HYDROmorphone 1 MG/ML 1 ML SYRINGE IVP PRN ×4 (01:40→09:50)
[2017-05-10 04:23] LABS: Basophils % (A) 0 %; CH 34.7; CHCM 32.2; Eosinophils # (A) 0.2 k/uL (0-0.7); Eosinophils % (A) 2 %; HCT 50.8 % (39.0-53.0); HDW 2.18; HGB 16.1 gm/dL (13.0-17.5); Luc # (Auto) 0.14; Luc % (Auto) 2; Lymphocytes # (A) 2.4 k/uL (1.0-4.8); Lymphocytes % (A) 25 %; MCH 34.3 pg (25.0-35.0); MCHC 31.7 g/dL (31.0-37.0); MCV 108.2 fL (80.0-100.0); Macrocytosis Moderate; Mean Platelet Volume 7.1; Monocytes # (A) 0.5 k/uL (0-1.0); Monocytes % (A) 6 %; Neutrophils # (A) 6.2 k/uL (1.3-7.7); Neutrophils % (A) 66 %; RDW 13.4 % (11.5-15.5); WBC 9.4 k/uL (3.8-10.6); WBC (Perox) 9.33
[2017-05-10 04:47] LABS: ALT 29 U/L (21-72); AST 22 U/L (17-59); Alkaline Phosphatase 50 U/L (38-126); Amylase 44 U/L (30-110); Anion Gap 6 mmol/L; Blood Urea Nitrogen 3 mg/dL (9-20); Calcium 8.6 mg/dL (8.4-10.2); Carbon Dioxide 25 mmol/L (22-30); Chloride 100 mmol/L (98-107); Glucose 156 mg/dL (74-99); Non-African American GFR(MDRD) >60 (>60 ml/min/1.73 sqM); Potassium 3.9 mmol/L (3.5-5.1); Sodium 131 mmol/L (137-145); Total Bilirubin 0.8 mg/dL (0.2-1.3)
[2017-05-10] MEDS: LORazepam 2 MG/ML INJ IV PRN ×3 (05:16→22:19)
[2017-05-10 06:45] LABS: Glucose,Whole Blood 158 mg/dL (75-99)
[2017-05-10] MEDS: LEVOTHYROXINE 50 MCG TAB PO SCH (07:00)
[2017-05-10] MEDS: IPRATROPIUM-ALBUTEROL 3 ML NEB INHALATION SCH ×4 (07:12→20:37)
[2017-05-10] MEDS: cloNIDine HCL 0.1 MG TAB PO SCH ×3 (08:29→21:46)
[2017-05-10] MEDS: NICOTINE 21MG/24HR PATCH TRANSDERM SCH (08:29)
[2017-05-10] MEDS: GABAPENTIN 300 MG CAP PO SCH ×2 (08:30→20:06)
[2017-05-10] MEDS: HEPARIN SODIUM,PORCINE 5,000 UNIT/ML 1 ML VIAL SQ SCH ×2 (08:30→20:06)
[2017-05-10] MEDS: METOPROLOL TARTRATE 25 MG TAB PO SCH ×2 (08:30→22:06)
[2017-05-10] MEDS: PANTOPRAZOLE 40 MG/10 ML VIAL IVP SCH (08:31)
[2017-05-10 11:56] LABS: Glucose,Whole Blood 192 mg/dL (75-99)
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
[2017-05-10] MEDS ORDERED: HYDROcodone/APAP 7.5-325MG 1 EACH TAB PO PRN (12:26)
[2017-05-10] MEDS: THIAMINE 100 MG TAB PO SCH ×2 (12:47→15:42)
[2017-05-10] MEDS: HYDROmorphone 0.5 MG/0.5 ML SYRINGE IVP PRN ×3 (13:14→21:27)
[2017-05-10] MEDS: oxyCODONE-APAP 7.5-325MG 1 EACH TAB PO PRN ×2 (15:42→19:59)
[2017-05-10] MEDS: ONDANSETRON 4 MG/2 ML VIAL IVP PRN (16:48)
--- NOTE | 2017-05-10 17:07 | PN ---
PROGRESS NOTE DATE OF SERVICE: 05/10/17. INTERVAL HISTORY: This 36-year-old gentleman who was admitted with severe abdominal pain, acute pancreatitis, acute cholecystis, being closely monitored. Patient has significant history of EtOH also. No chest pain. No palpitations. No fever. No shortness of breath. ' PHYSICAL EXAMINATION: Alert, oriented x3. Pulse is 93, blood pressure 130/87, respiration 18, temperature 98 degrees, pulse ox 98% room air. HEENT: Conjunctivae normal. NECK: No jugular venous distention. CARDIOVASCULAR: S1, S2. RESPIRATORY: Breath sounds diminished in the bases. Scattered rhonchi. ABDOMEN: Soft, mild diffuse tenderness. No guarding. No rigidity. No mass palpable. LEGS: No edema. NERVOUS SYSTEM: No focal deficits. LABS: Accu-Cheks 150. Sodium 131. ASSESSMENT: 1. Severe abdominal pain with acute pancreatitis with acute cholecystitis. 2. Increased WBC. 3. Hyperglycemia. 4. History of ETOH. 5. Diabetes type 2. 6. History of nicotine dependence. 7. Gastroesophageal reflux disease. 8. Hypertension. 9. History of degenerative joint disease. 10.History of seizure. 11.History of syncope. 12.History of hypothyroidism. 13.Anxiety, bipolar, depression, panic disorder. RECOMMENDATIONS AND DISCUSSION: I recommend to continue current management and symptomatic treatment. Otherwise closely follow with surgery. Guarded prognosis because of multiple complex medical issues. Further recommendations to follow. MMMARTAL / JEANEN: [id number] /
[2017-05-10 17:59] LABS: Glucose,Whole Blood 252 mg/dL (75-99)
[2017-05-10] MEDS: INSULIN GLARGINE 100 UNIT/ML 10 ML VIAL SQ SCH (20:06)
[2017-05-10] MEDS ORDERED: HYDROmorphone 0.5 MG/0.5 ML SYRINGE IVP ONE (20:18)
[2017-05-10 23:22] VITALS: RESP 16; TEMP 98.7
[2017-05-11] MEDS: D5W WITH KCL 20 MEQ/L 1,000 ML IV SCH (00:06)
[2017-05-11] MEDS: oxyCODONE-APAP 7.5-325MG 1 EACH TAB PO PRN ×3 (00:06→08:00)
[2017-05-11] MEDS: PIPERACILLIN-TAZOBACTAM 3.375 GM in DEXTROSE/WATER 1 50ML.BAG IVPB SCH ×2 (00:07→07:46)
[2017-05-11] MEDS: INSULIN LISPRO (humaLOG) 300 UNIT/3 ML VIAL SQ SCH ×2 (00:07→06:01)
[2017-05-11 00:08] LABS: Glucose,Whole Blood 260 mg/dL (75-99)
[2017-05-11] MEDS: HYDROmorphone 0.5 MG/0.5 ML SYRINGE IVP PRN ×2 (01:58→06:30)
[2017-05-11] MEDS: ONDANSETRON 4 MG/2 ML VIAL IVP PRN (02:15)
[2017-05-11] MEDS: LORazepam 2 MG/ML INJ IV PRN (05:51)
[2017-05-11 06:11] LABS: Glucose,Whole Blood 228 mg/dL (75-99)
[2017-05-11] MEDS: LEVOTHYROXINE 50 MCG TAB PO SCH (06:30)
[2017-05-11] MEDS: IPRATROPIUM-ALBUTEROL 3 ML NEB INHALATION SCH (07:08)
[2017-05-11 07:28] LABS: Basophils % (A) 0 %; CH 35.3; CHCM 33.8; Eosinophils # (A) 0.1 k/uL (0-0.7); Eosinophils % (A) 1 %; HCT 43.2 % (39.0-53.0); HDW 2.36; HGB 14.4 gm/dL (13.0-17.5); Luc # (Auto) 0.12; Luc % (Auto) 2; Lymphocytes # (A) 1.7 k/uL (1.0-4.8); Lymphocytes % (A) 24 %; MCHC 33.4 g/dL (31.0-37.0); MCV 104.8 fL (80.0-100.0); Macrocytosis Slight; Mean Platelet Volume 6.5; Monocytes # (A) 0.5 k/uL (0-1.0); Monocytes % (A) 6 %; Neutrophils # (A) 4.7 k/uL (1.3-7.7); Neutrophils % (A) 66 %; RBC 4.12 m/uL (4.30-5.90); RDW 12.5 % (11.5-15.5); WBC 7.2 k/uL (3.8-10.6)
[2017-05-11] MEDS ORDERED: PANTOPRAZOLE 40 MG TABLET PO SCH (07:30)
[2017-05-11 07:35] LABS: ALT 27 U/L (21-72); AST 15 U/L (17-59); Alkaline Phosphatase 46 U/L (38-126); Anion Gap 10 mmol/L; Blood Urea Nitrogen 2 mg/dL (9-20); Calcium 8.8 mg/dL (8.4-10.2); Carbon Dioxide 21 mmol/L (22-30); Chloride 103 mmol/L (98-107); Glucose 173 mg/dL (74-99); Non-African American GFR(MDRD) >60 (>60 ml/min/1.73 sqM); Potassium 3.8 mmol/L (3.5-5.1); Sodium 134 mmol/L (137-145); Total Bilirubin 0.6 mg/dL (0.2-1.3); Total Protein 5.9 g/dL (6.3-8.2)
[2017-05-11] MEDS: cloNIDine HCL 0.1 MG TAB PO SCH (07:46)
[2017-05-11] MEDS: METOPROLOL TARTRATE 25 MG TAB PO SCH (07:46)
[2017-05-11] MEDS: NICOTINE 21MG/24HR PATCH TRANSDERM SCH (07:46)
[2017-05-11] MEDS: GABAPENTIN 300 MG CAP PO SCH (07:46)
[2017-05-11 08:35] VITALS: BP 135/102; PULSE 86
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
--- NOTE | 2017-05-11 14:01 | P.PN ---
Subjective Progress Note Date: 05/11/17 Progress note being dictated for Dr. Tavarez Interval history: This a 36-year-old gentleman admitted with abdominal pain, acute pancreatitis, acute cholecystitis and multiple other adequate issues in a patient with history of significant EtOH abuse. Pain better controlled. Consuming 75% of diet, with no nausea vomiting or diarrhea. Afebrile. Denies chest pain, palpitations or increased shortness of breath. General surgery is planning for discharge today. Objective - Vital Signs Vital signs: Vital Signs Temp 98.7 F 05/10/17 23:00 Pulse 86 05/11/17 08:00 Resp 16 05/11/17 08:00 BP 135/102 05/11/17 07:00 Pulse Ox 98 05/11/17 07:00 Intake & Output 05/10/17 05/11/17 05/11/17 18:59 06:59 18:59 Intake Total 1530 2080 Balance 1530 2080 Weight 77.111 kg Intake: Intake, IV Titration 1050 1600 Amount D5w with KCl 20 Meq/l 1, 1000 1600 000 ml @ 100 mls/hr IV . Q10H RAUDEL Rx#:[id number] Piperacillin-Tazobactam 3 50 .375 gm In Dextrose/Water 1 50ml.bag @ 12.5 mls/hr IVPB Q8HR RAUDEL Rx#: [id number] Oral 480 480 Other: Voiding Method Toilet Toilet Toilet # Voids 2 2 - Exam PHYSICAL EXAM: VITAL SIGNS: As above GENERAL: Sitting up in bed, no acute distress HEENT: Conjunctivae normal. eyes normal. Oral mucosa moist NECK: No JVD. No thyroid enlargement. No LNs CARDIOVASCULAR: S1, S2 muffled. No murmur RESPIRATION: Breath sounds diminished in the bases. No rhonchi or crackles. No bronchial breathing. ABDOMEN: Soft, nontender . No guarding. no masses palpable.Bowel sounds heard. No guarding, no rigidity LEGS: No edema. no swelling PSYCHIATRY: Alert and oriented -3, mood and affect normal. NERVOUS SYSTEM: Cranial N 2-12 grossly normal. Moves all 4 limbs. Diffuse weakness No focal deficits. No sensory deficit. Skin: no ulcer no rash - Labs CBC & Chem 7: 05/11/17 06:42 05/11/17 06:42 Labs: Abnormal Lab Results - Last 24 Hours (Table) 05/10/17 05/11/17 05/11/17 Range/Units 17:56 00:05 05:59 RBC (4.30-5.90) m/uL MCV (80.0-100.0) fL Sodium (137-145) mmol/L Carbon Dioxide (22-30) mmol/L BUN (9-20) mg/dL Glucose (74-99) mg/dL POC Glucose (mg/dL) 252 H 260 H 228 H (75-99) mg/dL AST (17-59) U/L Total Protein (6.3-8.2) g/dL Albumin (3.5-5.0) g/dL 05/11/17 05/11/17 Range/Units 06:42 06:42 RBC 4.12 L (4.30-5.90) m/uL MCV 104.8 H (80.0-100.0) fL Sodium 134 L (137-145) mmol/L Carbon Dioxide 21 L (22-30) mmol/L BUN 2 L (9-20) mg/dL Glucose 173 H (74-99) mg/dL POC Glucose (mg/dL) (75-99) mg/dL AST 15 L (17-59) U/L Total Protein 5.9 L (6.3-8.2) g/dL Albumin 3.4 L (3.5-5.0) g/dL Microbiology - Last 24 Hours (Table) 05/07/17 23:20 Blood Culture - Preliminary Blood No Growth after 72 hours Assessment and Plan Plan: 1. Severe abbie pain with acute pancreatitis with acute cholecystitis. 2. [ Diabetes mellitus type 2, uncontrolled. 3. [ EtOH abuse]. 4. [ Nicotine dependence]. 5. [ Anxiety, bipolar, depression, panic disorder]. 6. [ Gastroesophageal reflux disease]. 7. []. Plan: Continue on current medication regime ,monitoring and symptomatic treatment. Follow closely with surgery. Outpatient elective cholecystectomy being discussed. As mentioned above surgery is planning to discharge patient today. Follow-up PCP in 3 days. Further recommendations to follow. The impression and plan of care has been dictated as directed. : I performed a history and examination of this patient, discussed the same with the dictator. I agree with the dictator's note ,documented as a scribe. Any additional findings or plans will be noted.
== END 2017-05-11 10:35 | disposition home or self-care (01) | DRG 282 ==
LOC: EC 12:37 → 5MS5E 16:25
PROVIDERS: ADMIT Surgery; ATTEND Surgery
DX: K85.20 Alcohol induced acute pancreatitis without necrosis or infection (principal); E11.649 Type 2 diabetes mellitus with hypoglycemia without coma; E11.40 Type 2 diabetes mellitus with diabetic neuropathy, unspecified; F11.20 Opioid dependence, uncomplicated; K81.0 Acute cholecystitis; E11.65 Type 2 diabetes mellitus with hyperglycemia; E03.9 Hypothyroidism, unspecified; E78.5 Hyperlipidemia, unspecified; F17.200 Nicotine dependence, unspecified, uncomplicated; F41.0 Panic disorder [episodic paroxysmal anxiety]; G40.909 Epilepsy, unspecified, not intractable, without status epilepticus; G89.21 Chronic pain due to trauma; I10 Essential (primary) hypertension; K21.9 Gastro-esophageal reflux disease without esophagitis; N40.0 Benign prostatic hyperplasia without lower urinary tract symptoms; F10.10 Alcohol abuse, uncomplicated; G43.909 Migraine, unspecified, not intractable, without status migrainosus; M19.90 Unspecified osteoarthritis, unspecified site; F41.9 Anxiety disorder, unspecified; F39 Unspecified mood [affective] disorder; Z79.4 Long term (current) use of insulin; Z79.899 Other long term (current) drug therapy; Z98.1 Arthrodesis status; Z82.49 Family history of ischemic heart disease and other diseases of the circulatory system
CPT/HCPCS: 36415; 71020; 74176; 76705; 80053; 80306; 81001; 82150; 82550; 82553; 83036; 83605; 83690; 84484; 85025; 87040; 87086; 94640; 96361; 96374; 96375; 96376; 99285

== ENCOUNTER → 2017-05-16 | Outpatient (CLI) | payer OTHER ==
--- NOTE | 2017-05-16 21:47 | MR ---
MRI CERVICAL SPINE: CLINICAL HISTORY: Cervicalgia, left upper extremity radiculopathy, hardware C5-C6 fusion 2010, cervic al disc disease C3-C4, C4-C5, and C5-C6 levels, and disc herniation C3-C4 level all per order. Headac hes with neck pain for 10 years causing pain or weakness into left arm and fingers per patient. TECHNIQUE: Multiplanar, multisequence imaging of the cervical spine is performed without and with IV contrast, 7.5 cc of gadolinium was given intravenously. COMPARISON: MRI cervical spine February 06, 2017. FINDINGS: Sagittal images of the cervical spine show the craniocervical junction to appear within nor mal limits. The cervical and upper thoracic spinal cord is normal in course, caliber, and signal. 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 Vertebral alignment is is stable and satisfactory. There is artifact from anterior fusion plate and disc material C5-C6 level redemonstrated. Vertebral body heights and disc space heights above and be low surgical levels remain satisfactory. There is mild to moderate anterior spurring C3-C4 and C4-C5 level redemonstrated. Small posterior disc herniations at C3-C4 and C4-C5 level are unchanged from p rior study on sagittal images The bone marrow signal intensity is within normal limits. No suspicious enhancement is seen. Prominent spurring anterior superior C7 level is redemonstrated. Axial images show the C2-C3 level to remain within normal limits. Axial images at C3-C4 level redemonstrate broad based posterior disc protrusion mildly effacing anter ior thecal sac and causing moderate right and mild left-sided neural foraminal narrowing. No signific ant change from prior study is seen. Axial images at C4-C5 level show more focal left paracentral/foraminal disc protrusion effacing anter olateral thecal sac and causing moderate to severe left and moderate right-sided neural foraminal sydnie rowing. No significant change from prior study is identified. Axial images at C5-C6 level redemonstrated artifact from surgical change. There is asymmetric mild to moderate right greater than left neural foraminal narrowing redemonstrated. Spinal canal is preserve d. Axial images at C6-C7 level and C7-T1 level are felt to remain within normal limits. IMPRESSION: Postsurgical changes C5-C6 level redemonstrated. There is stable and satisfactory alignme nt seen. There are redemonstration of degenerative changes C3-C4 and C4-C5 level seen as detailed abo ve. No significant change from prior MRI is identified.
== END | disposition home or self-care (01) ==
LOC: RADMRIMAIN 20:09
PROVIDERS: ATTEND Orthopaedic Surgery Orthopaedic Surgery of the Spine
DX: M47.22 Other spondylosis with radiculopathy, cervical region (principal); Z98.890 Other specified postprocedural states
CPT/HCPCS: 72156; A9581

== ENCOUNTER 2017-07-16 17:23 | Inpatient (IN) | payer OTHER ==
[2017-07-16] MEDS ORDERED: ONDANSETRON 4 MG/2 ML VIAL IVP STA (19:17)
[2017-07-16] MEDS ORDERED: SODIUM CHLORIDE 0.9% 1,000 ML IV STA (19:17)
[2017-07-16] MEDS ORDERED: SODIUM CHLORIDE 0.9% 500 ML IV STA (19:17)
[2017-07-16] MEDS ORDERED: HYDROmorphone 1 MG/ML 1 ML SYRINGE IVP STA ×2 (19:17→20:46)
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
[2017-07-16 19:50] LABS: Basophils % (A) 0 %; Eosinophils # (A) 0.4 k/uL (0-0.7); Eosinophils % (A) 3 %; HCT 44.4 % (39.0-53.0); HGB 14.9 gm/dL (13.0-17.5); Lymphocytes # (A) 1.9 k/uL (1.0-4.8); Lymphocytes % (A) 14 %; MCH 34.7 pg (25.0-35.0); MCHC 33.5 g/dL (31.0-37.0); MCV 103.5 fL (80.0-100.0); Macrocytosis Slight; Mean Platelet Volume 6.6; Monocytes # (A) 0.6 k/uL (0-1.0); Monocytes % (A) 4 %; Neutrophils # (A) 10.5 k/uL (1.3-7.7); Neutrophils % (A) 77 %; Platelet Count 316 k/uL (150-450); RBC 4.29 m/uL (4.30-5.90); RDW 14.3 % (11.5-15.5); WBC 13.6 k/uL (3.8-10.6)
[2017-07-16 19:59] LABS: ALT 40 U/L (21-72); AST 34 U/L (17-59); Alcohol <10 mg/dL; Alkaline Phosphatase 65 U/L (38-126); Amylase 129 U/L (30-110); Anion Gap 8 mmol/L; Blood Urea Nitrogen 9 mg/dL (9-20); Calcium 9.8 mg/dL (8.4-10.2); Carbon Dioxide 25 mmol/L (22-30); Chloride 101 mmol/L (98-107); Glucose 68 mg/dL (74-99); Lipase 782 U/L (23-300); Potassium 3.3 mmol/L (3.5-5.1); Sodium 134 mmol/L (137-145); Total Bilirubin 0.8 mg/dL (0.2-1.3); Total Protein 6.4 g/dL (6.3-8.2)
[2017-07-16] MEDS ORDERED: cloNIDine HCL 0.2 MG TAB PO STA (20:01)
[2017-07-16 20:10] LABS: Appearance,Urine Clear (Clear); Bilirubin,Urine Negative (Negative); Blood,Urine Negative (Negative); Color,Urine Yellow; Glucose,Urine (UA) Negative (Negative); Ketones,Urine 2+ (Negative); Leukocyte Esterase,Urine Trace (Negative); Mucus,Urine Rare /hpf; Nitrite,Urine Negative (Negative); Protein,Urine Trace (Negative); RBC,Urine 1 /hpf (0-5); Specific Gravity,Urine 1.022 (1.001-1.035); WBC,Urine 1 /hpf (0-5)
--- NOTE | 2017-07-16 20:13 | XR ---
EXAMINATION TYPE: XR KUB DATE OF EXAM: 07/16/2017 CLINICAL HISTORY: Nausea and vomiting TECHNIQUE: Upright abdominal radiograph is obtained COMPARISON: None. FINDINGS: Cholecystectomy clips are noted within the right upper quadrant. Scattered gas is seen in non-distended small bowel loops. Gas and fecal material is seen in non-distended colon. There is no visceromegaly, pneumoperitoneum, or abnormal calcification appreciated. The lung bases are clear a nd the osseous structures are intact. Partial visualization of the left femoral jose is noted. IMPRESSION: Nonobstructive bowel gas pattern.
[2017-07-16] MEDS ORDERED: NALOXONE 0.4 MG/ML 1 ML VIAL IV PRN (20:57)
[2017-07-16] MEDS: SODIUM CHLORIDE 0.9% 1,000 ML IV SCH (21:35)
[2017-07-16] MEDS ORDERED: ENALAPRILAT 1.25 MG/ML 1 ML VIAL IVP STA (21:44)
[2017-07-16] MEDS ORDERED: ENALAPRILAT 1.25 MG/ML 1 ML VIAL IVP PRN (22:09)
[2017-07-16] MEDS: HYDROmorphone 2 MG/ML 1 ML SYRINGE IVP PRN (22:40)
[2017-07-16] MEDS ORDERED: PANTOPRAZOLE 40 MG/10 ML VIAL IVP STA (22:55)
[2017-07-16] MEDS ORDERED: LORazepam 2 MG/ML INJ IV STA (22:55)
[2017-07-16] MEDS ORDERED: MAG HYDROX/AL HYDROX/SIMETH 30 ML, HYOSCYAMINE ELIXIR 10 ML, CIMETIDINE HCL 300 MG, LID... PO STA ×4 (22:56)
[2017-07-16] MEDS ORDERED: THIAMINE 100 MG/ML 2 ML VIAL IM STA (23:45)
[2017-07-16] MEDS ORDERED: LORazepam 2 MG/ML INJ IV PRN (23:45)
[2017-07-16] MEDS ORDERED: LABETALOL 5 MG/ML VIAL MDV IVP STA (23:55)
[2017-07-17] MEDS: LORazepam 2 MG/ML INJ IV PRN ×4 (00:29→22:31)
[2017-07-17] MEDS: ONDANSETRON 4 MG/2 ML VIAL IVP PRN ×2 (04:19→10:44)
[2017-07-17] MEDS: HYDROmorphone 2 MG/ML 1 ML SYRINGE IVP PRN ×5 (04:22→19:58)
[2017-07-17 05:48] LABS: Basophils % (A) 0 %; Eosinophils # (A) 0.2 k/uL (0-0.7); Eosinophils % (A) 2 %; HCT 45.5 % (39.0-53.0); HGB 14.7 gm/dL (13.0-17.5); Lymphocytes # (A) 1.5 k/uL (1.0-4.8); Lymphocytes % (A) 14 %; MCH 34.7 pg (25.0-35.0); MCHC 32.4 g/dL (31.0-37.0); MCV 106.9 fL (80.0-100.0); Macrocytosis Moderate; Mean Platelet Volume 6.2; Monocytes # (A) 0.6 k/uL (0-1.0); Monocytes % (A) 5 %; Neutrophils # (A) 8.6 k/uL (1.3-7.7); Neutrophils % (A) 78 %; Platelet Count 286 k/uL (150-450); RBC 4.25 m/uL (4.30-5.90); RDW 14.3 % (11.5-15.5); WBC 11.1 k/uL (3.8-10.6)
[2017-07-17 05:56] LABS: ALT 42 U/L (21-72); AST 31 U/L (17-59); Albumin 3.6 g/dL (3.5-5.0); Alkaline Phosphatase 56 U/L (38-126); Amylase 120 U/L (30-110); Anion Gap 8 mmol/L; Blood Urea Nitrogen 7 mg/dL (9-20); Calcium 8.3 mg/dL (8.4-10.2); Carbon Dioxide 28 mmol/L (22-30); Chloride 101 mmol/L (98-107); Glucose 92 mg/dL (74-99); Lipase 595 U/L (23-300); Potassium 3.8 mmol/L (3.5-5.1); Sodium 137 mmol/L (137-145); Total Bilirubin 0.7 mg/dL (0.2-1.3)
[2017-07-17] MEDS ORDERED: hydrALAZINE HCL 20 MG/ML 1 ML VIAL IVP PRN (07:08)
[2017-07-17] MEDS: SODIUM CHLORIDE 0.9% 1,000 ML IV SCH ×4 (07:53→21:19)
[2017-07-17] MEDS ORDERED: IPRATROPIUM-ALBUTEROL 3 ML NEB INHALATION PRN (10:53)
[2017-07-17 12:38] LABS: Glucose,Whole Blood 86 mg/dL (75-99)
[2017-07-17] MEDS: IPRATROPIUM-ALBUTEROL 3 ML NEB INHALATION SCH ×3 (12:47→20:13)
[2017-07-17] MEDS: INSULIN ASPART 100 UNIT/ML 1 ML 10 ML VIAL SQ SCH ×3 (13:27→22:48)
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
[2017-07-17 15:12] VITALS: BMI 24.3
[2017-07-17 16:46] LABS: Glucose,Whole Blood 86 mg/dL (75-99)
[2017-07-17] MEDS ORDERED: THIAMINE 100 MG TAB PO SCH (17:00)
[2017-07-17 17:09] LABS: Hemoglobin A1C 6.5 % (4.0-6.0)
[2017-07-17 19:38] LABS: Glucose,Whole Blood 82 mg/dL (75-99)
[2017-07-17] MEDS ORDERED: INSULIN DETEMIR 100 UNIT/ML 10 ML VIAL SQ SCH (21:00)
[2017-07-17] MEDS ORDERED: MAG HYDROX/AL HYDROX/SIMETH 30 ML CUP PO PRN (21:02)
[2017-07-17] MEDS: PANTOPRAZOLE 40 MG/10 ML VIAL IVP SCH (21:19)
[2017-07-17] MEDS ORDERED: KETOROLAC 30 MG/ML 1 ML VIAL IVP PRN (22:29)
[2017-07-17] MEDS: cloNIDine HCL 0.1 MG TAB PO SCH (22:43)
[2017-07-17] MEDS: METOPROLOL TARTRATE 25 MG TAB PO SCH (22:43)
[2017-07-17 22:46] LABS: Glucose,Whole Blood 191 mg/dL (75-99)
[2017-07-17] MEDS: HYDROcodone/APAP 7.5-325MG 1 EACH TAB PO PRN (22:48)
[2017-07-17 23:17] VITALS: RESP 20
[2017-07-18] MEDS ORDERED: KETOROLAC 30 MG/ML 1 ML VIAL IVP SCH
[2017-07-18] MEDS: LORazepam 2 MG/ML INJ IV PRN ×3 (01:25→10:39)
[2017-07-18] MEDS: HYDROmorphone 2 MG/ML 1 ML SYRINGE IVP PRN ×2 (02:43→08:18)
[2017-07-18 04:32] LABS: Glucose,Whole Blood 62 mg/dL (75-99)
[2017-07-18] MEDS: INSULIN ASPART 100 UNIT/ML 1 ML 10 ML VIAL SQ SCH (04:37)
[2017-07-18 04:59] LABS: Glucose,Whole Blood 59 mg/dL (75-99)
[2017-07-18] MEDS: HYDROcodone/APAP 7.5-325MG 1 EACH TAB PO PRN (05:28)
[2017-07-18 05:32] LABS: Glucose,Whole Blood 98 mg/dL (75-99)
[2017-07-18] MEDS ORDERED: LEVOTHYROXINE 50 MCG TAB PO SCH ×2 (06:30→09:00)
[2017-07-18 06:59] LABS: Glucose,Whole Blood 164 mg/dL (75-99)
[2017-07-18] MEDS ORDERED: oxyCODONE-APAP 10-325MG 1 EACH TAB PO PRN (07:24)
[2017-07-18] MEDS ORDERED: metFORMIN 500 MG TAB PO SCH (07:30)
[2017-07-18 07:40] LABS: HCT 42.5 % (39.0-53.0); HGB 14.4 gm/dL (13.0-17.5); MCH 35.1 pg (25.0-35.0); MCHC 33.9 g/dL (31.0-37.0); MCV 103.6 fL (80.0-100.0); Macrocytosis Slight; Mean Platelet Volume 6.6; Platelet Count 258 k/uL (150-450); RDW 14.3 % (11.5-15.5); WBC 7.6 k/uL (3.8-10.6)
[2017-07-18 07:51] VITALS: BP 147/101; TEMP 98.2
[2017-07-18] MEDS ORDERED: cloNIDine HCL 0.1 MG TAB PO SCH (08:00)
[2017-07-18] MEDS ORDERED: METOPROLOL TARTRATE 25 MG TAB PO SCH (08:00)
[2017-07-18] MEDS ORDERED: GABAPENTIN 300 MG CAP PO SCH ×2 (08:00→09:00)
[2017-07-18 08:16] LABS: ALT 35 U/L (21-72); AST 20 U/L (17-59); Alkaline Phosphatase 47 U/L (38-126); Anion Gap 5 mmol/L; Blood Urea Nitrogen 4 mg/dL (9-20); Calcium 8.2 mg/dL (8.4-10.2); Carbon Dioxide 27 mmol/L (22-30); Chloride 101 mmol/L (98-107); Glucose 152 mg/dL (74-99); Lipase 430 U/L (23-300); Potassium 4.2 mmol/L (3.5-5.1); Sodium 133 mmol/L (137-145); Total Bilirubin 0.6 mg/dL (0.2-1.3); Total Protein 5.2 g/dL (6.3-8.2)
[2017-07-18] MEDS: cloNIDine HCL 0.1 MG TAB PO SCH (08:16)
[2017-07-18] MEDS: SODIUM CHLORIDE 0.9% 1,000 ML IV SCH (08:17)
[2017-07-18] MEDS: PANTOPRAZOLE 40 MG/10 ML VIAL IVP SCH (08:17)
[2017-07-18] MEDS: METOPROLOL TARTRATE 25 MG TAB PO SCH (08:17)
[2017-07-18] MEDS: IPRATROPIUM-ALBUTEROL 3 ML NEB INHALATION SCH (08:42)
[2017-07-18 08:46] VITALS: PULSE 100
[2017-07-18] MEDS ORDERED: LORATADINE 10 MG TAB PO SCH (09:00)
[2017-07-18 11:05] LABS: Glucose,Whole Blood 122 mg/dL (75-99)
[2017-07-18] MEDS ORDERED: INSULIN ASPART 100 UNIT/ML 1 ML 10 ML VIAL SQ SCH (12:30)
[2017-07-18] MEDS ORDERED: ATORVASTATIN 20 MG TAB PO SCH (21:00)
[2017-07-18] MEDS ORDERED: ATORVASTATIN 10 MG TAB PO SCH (21:00)
--- NOTE | 2017-07-19 16:51 | P.DS ---
Providers Date of admission: 07/16/17 23:09 Expected date of discharge: 07/18/17 Attending physician: Nayla Villagomez Primary care physician: Gabi Duran [facility] Course: Final Diagnoses: #1 abdominal pain: Either alcoholic gastritis , malingering, suspicion is low for pancreatitis #2 alcohol abuse history: Counseling was provided #3 hypertension #4 alcohol withdrawal: Patient doesn't have any withdrawals at this time, placed on CIWA protocol, thiamine, multivitamin supplementation #5 hypothyroidism #6 type 2 diabetes mellitus #7 benign prostatic hypertrophy #8 seizure disorder Hospital course:this is a 36-year-old male patient with past medical history significant for type 2 diabetes, pancreatitis, hypertension, and recent cholecystectomy presents for evaluation of upper abdominal pain with radiation to his back. Patient admitted with abdominal pain accompanied by severe nausea and multiple episodes of vomiting,sweating. Denied any constipation or diarrhrea. denied recent rash, fever, chills, shortness breath, chest pain, back pain, numbness, tingling, dizziness, weakness, hematuria, dysuria, urinary urgency, urinary frequency, headache, visual changes, or any other complaints. Patient reported he has not been checking his blood sugar levels however he has been administering his prescribed Lantus. Patient does admit to heavy alcohol use. States he last drank yesterday. Patient had minimally elevated lipase not having to say pancreatitis and patient has subjective tenderness although proportion even just with touching which mostly looks like malingering rather than actual tenderness. Lipase is not high enough for pancreatitis patient may have gastritis or narcotic seeking behavior. placed on PPI, bowel rest, and IV pain management. significant clinical improvement. Patient is being discharged home in a stable condition with guarded prognosis.patient has a pain contract, states he missed his last appointment. Patient has been advised to telephone his pain doctor prior to discharge and arrange appointment/pain medications. PHYSICAL EXAM: CARDIOVASCULAR: regular S1, S2. No murmur,rubs or gallops RESPIRATION: Breath sounds diminished in the bases. No rhonchi or crackles. No bronchial breathing. ABDOMEN: Soft, nondistended, subjective tenderness as mentioned above . No guarding. no masses palpable.Bowel sounds heard. PSYCHIATRY: Alert and oriented -3, mood and affect normal.no focal deficits The impression and plan of care has been dictated as directed. : I performed a history and examination of this patient, discussed the same with the dictator. I agree with the dictator's note ,documented as a scribe. Any additional findings or plans will be noted. Time taken: 35 minutes Patient Condition at Discharge: Stable Plan - Discharge Summary Discharge Rx Participant: No New Discharge Prescriptions: New Folic Acid 1 mg PO DAILY #30 tablet Multivitamins, Thera [Multivitamin (formulary)] 1 tab PO DAILY #30 tablet Thiamine [Vitamin B-1] 100 mg PO DAILY #30 tab Continue Testosterone Cypionate [Depo-Testosterone] 300 mg IM Q14D Simvastatin [Zocor] 20 mg PO HS Levothyroxine Sodium [Synthroid] 50 mcg PO DAILY Ipratropium [place] [Atrovent Hfa] 2 puff INHALATION RT-QID Gabapentin [Neurontin] 300 mg PO BID Metoprolol Tartrate 25 mg PO BID Albuterol Inhaler [Ventolin Hfa Inhaler] 2 puff INHALATION RT-Q6H PRN PRN Reason: Cough cloNIDine HCL [Catapres] 0.1 mg PO TID #90 tab metFORMIN HCL 1,000 mg PO BID oxyCODONE-APAP 10-325MG [Percocet 10-325 mg] 1 tab PO QID PRN PRN Reason: Pain Loratadine [Claritin] 10 mg PO DAILY Changed Insulin Glargine [Lantus] 20 unit SQ DAILY #0 Discharge Medication List Simvastatin [Zocor] 20 mg PO HS 07/05/16 [History] Testosterone Cypionate [Depo-Testosterone] 300 mg IM Q14D 07/05/16 [History] Levothyroxine Sodium [Synthroid] 50 mcg PO DAILY 07/27/16 [History] Albuterol Inhaler [Ventolin Hfa Inhaler] 2 puff INHALATION RT-Q6H PRN 05/07/17 [ History] Gabapentin [Neurontin] 300 mg PO BID 05/07/17 [History] Ipratropium [place] [Atrovent Hfa] 2 puff INHALATION RT-QID 05/07/17 [History] Metoprolol Tartrate 25 mg PO BID 05/07/17 [History] cloNIDine HCL [Catapres] 0.1 mg PO TID #90 tab 05/10/17 [Rx] Loratadine [Claritin] 10 mg PO DAILY 07/16/17 [History] metFORMIN HCL 1,000 mg PO BID 07/16/17 [History] oxyCODONE-APAP 10-325MG [Percocet 10-325 mg] 1 tab PO QID PRN 07/16/17 [History] Folic Acid 1 mg PO DAILY #30 tablet 07/18/17 [Rx] Insulin Glargine [Lantus] 20 unit SQ DAILY #0 07/18/17 [Rx] Multivitamins, Thera [Multivitamin (formulary)] 1 tab PO DAILY #30 tablet [Rx] Thiamine [Vitamin B-1] 100 mg PO DAILY #30 tab 07/18/17 [Rx] Follow up Appointment(s)/Referral(s): Dr. Corazon [facility] specialist [place] [Other] - 1 Week (pain contract) Renee Ashley MD [Primary Care Provider] - 07/23/17 1:20 pm Ambulatory/Diagnostic Orders: Comprehensive Metabolic Panel [LAB.AMB] Time Frame: 3 Days, Location: Determined By Patient Patient Instructions/Handouts: Thiamine (By mouth), Folic Acid (By mouth), Multivitamins, Adult Formula (By mouth), Gastritis (DC), Abuse of Alcohol (DC) Activity/Diet/Wound Care/Special Instructions: Diet as tolerated Activity as tolerated Discharge Disposition: HOME SELF-CARE
== END 2017-07-18 12:24 | disposition home or self-care (01) | DRG 392 ==
LOC: EC 17:23 → 6SEL 23:09 → 5MS5E 07-17 22:22
PROVIDERS: ADMIT Internal Medicine; ATTEND Internal Medicine
DX: K29.20 Alcoholic gastritis without bleeding (principal); E11.42 Type 2 diabetes mellitus with diabetic polyneuropathy; E03.9 Hypothyroidism, unspecified; E78.5 Hyperlipidemia, unspecified; F17.200 Nicotine dependence, unspecified, uncomplicated; F41.0 Panic disorder [episodic paroxysmal anxiety]; F10.10 Alcohol abuse, uncomplicated; G40.909 Epilepsy, unspecified, not intractable, without status epilepticus; I10 Essential (primary) hypertension; K21.9 Gastro-esophageal reflux disease without esophagitis; N40.0 Benign prostatic hyperplasia without lower urinary tract symptoms; F32.9 Major depressive disorder, single episode, unspecified; G43.909 Migraine, unspecified, not intractable, without status migrainosus; G56.02 Carpal tunnel syndrome, left upper limb; M19.90 Unspecified osteoarthritis, unspecified site; M50.30 Other cervical disc degeneration, unspecified cervical region; R74.8 Abnormal levels of other serum enzymes; G89.4 Chronic pain syndrome; Z76.5 Malingerer [conscious simulation]; Z79.4 Long term (current) use of insulin; Z79.899 Other long term (current) drug therapy; Z90.81 Acquired absence of spleen; Z98.1 Arthrodesis status; Z90.5 Acquired absence of kidney; Z90.49 Acquired absence of other specified parts of digestive tract; Z71.41 Alcohol abuse counseling and surveillance of alcoholic; Z82.49 Family history of ischemic heart disease and other diseases of the circulatory system
CPT/HCPCS: 36415; 74018; 80053; 80320; 81001; 82009; 82150; 83036; 83690; 85025; 85027; 94640; 96361; 96372; 96374; 96375; 96376; 99285

== ENCOUNTER 2017-09-10 00:59 | Inpatient (IN) | payer OTHER ==
[2017-09-10] MEDS ORDERED: MORPHINE SULFATE 4 MG/ML SYRINGE IV STA (01:33)
[2017-09-10] MEDS ORDERED: SODIUM CHLORIDE 0.9% 1,000 ML IV STA (01:33)
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
[2017-09-10 01:42] LABS: Basophils % (A) 0 %; Eosinophils # (A) 0.1 k/uL (0-0.7); Eosinophils % (A) 1 %; HCT 46.8 % (39.0-53.0); HGB 15.7 gm/dL (13.0-17.5); Lymphocytes # (A) 0.8 k/uL (1.0-4.8); Lymphocytes % (A) 6 %; MCH 35.1 pg (25.0-35.0); MCHC 33.6 g/dL (31.0-37.0); MCV 104.5 fL (80.0-100.0); Macrocytosis Slight; Monocytes # (A) 0.6 k/uL (0-1.0); Monocytes % (A) 5 %; Neutrophils # (A) 12.2 k/uL (1.3-7.7); Neutrophils % (A) 88 %; Platelet Count 280 k/uL (150-450); RBC 4.48 m/uL (4.30-5.90); RDW 13.6 % (11.5-15.5); WBC 13.9 k/uL (3.8-10.6)
[2017-09-10 01:49] LABS: Albumin 3.8 g/dL (3.5-5.0); Amylase 108 U/L (30-110); Anion Gap 12 mmol/L; Calcium 8.6 mg/dL (8.4-10.2); Carbon Dioxide 23 mmol/L (22-30); Chloride 100 mmol/L (98-107); Glucose 269 mg/dL (74-99); Lipase 786 U/L (23-300); Sodium 135 mmol/L (137-145); Total Bilirubin 1.1 mg/dL (0.2-1.3); Total Protein 6.4 g/dL (6.3-8.2)
[2017-09-10 01:50] LABS: AST 28 U/L (17-59); Blood Urea Nitrogen 10 mg/dL (9-20); Potassium 4.3 mmol/L (3.5-5.1)
[2017-09-10] MEDS: ONDANSETRON 4 MG/2 ML VIAL IVP STA ×2 (01:50→11:06)
[2017-09-10 01:51] LABS: ALT 37 U/L (21-72); Alkaline Phosphatase 68 U/L (38-126)
[2017-09-10] MEDS ORDERED: ENALAPRILAT 1.25 MG/ML 1 ML VIAL IVP STA ×2 (02:28→03:03)
[2017-09-10 02:40] LABS: Appearance,Urine Clear (Clear); Bilirubin,Urine Negative (Negative); Blood,Urine Negative (Negative); Color,Urine Yellow; Glucose,Urine (UA) 4+ (Negative); Ketones,Urine 1+ (Negative); Leukocyte Esterase,Urine Negative (Negative); Mucus,Urine Rare /hpf; PH, Urine 6.5 (5.0-8.0); Protein,Urine 1+ (Negative); RBC,Urine <1 /hpf (0-5); Specific Gravity,Urine 1.028 (1.001-1.035); Urobilinogen,Urine <2.0 mg/dL (<2.0); WBC,Urine 1 /hpf (0-5)
[2017-09-10] MEDS ORDERED: MORPHINE SULFATE 4 MG/ML SYRINGE IVP STA ×5 (02:48→15:25)
[2017-09-10] MEDS ORDERED: ACETAMINOPHEN TAB 325 MG TAB PO PRN (02:53)
[2017-09-10] MEDS ORDERED: NALOXONE 0.4 MG/ML 1 ML VIAL IV PRN (02:53)
[2017-09-10] MEDS: SODIUM CHLORIDE 0.9% 1,000 ML IV SCH ×4 (03:17→23:42)
[2017-09-10] MEDS ORDERED: hydrALAZINE HCL 20 MG/ML 1 ML VIAL IVP STA ×3 (03:23→04:30)
[2017-09-10] MEDS ORDERED: INSULIN ASPART 100 UNIT/ML 1 ML 10 ML VIAL SQ ONE (03:49)
[2017-09-10] MEDS: ONDANSETRON 4 MG/2 ML VIAL IVP PRN (04:00)
[2017-09-10 04:23] LABS: Glucose,Whole Blood 261 mg/dL (75-99)
[2017-09-10] MEDS ORDERED: LORazepam 2 MG/ML INJ IV STA ×3 (05:09→18:21)
[2017-09-10] MEDS ORDERED: RX INFO: IV CONTRAST WAS GIVEN 1 EACH MISC MISCELLANE PRN (06:03)
[2017-09-10] MEDS ORDERED: SODIUM CHLORIDE 0.9% 1,000 ML IV ONE (06:04)
[2017-09-10 06:55] LABS: Glucose,Whole Blood 199 mg/dL (75-99)
[2017-09-10] MEDS ORDERED: LABETALOL 5 MG/ML VIAL MDV IVP STA ×2 (07:00→07:46)
[2017-09-10] MEDS: KETOROLAC 30 MG/ML 1 ML VIAL IVP PRN ×2 (07:36→19:07)
--- NOTE | 2017-09-10 07:44 | CT ---
EXAM: CT Abdomen and Pelvis With Intravenous Contrast CLINICAL HISTORY: Reason: Pain. Abdominal pain since yesterday. History of pancreatitis. Previous Back surgery, Cholecystectomy, Lt Nephrectomy, Lt hip TECHNIQUE: Axial computed tomography images of the abdomen and pelvis with intravenous contrast. CTDI is 6.2 mGy and DLP is 348.8 mGy-cm. Axial delayed images: CTDI is 6.3 mGy and DLP is 211.8 mGy-cm. This CT exam was performed using one or more of the following dose reduction techniques: automated exposure control, adjustment of the mA and/or kV according to patient size, and/or use of iterative reconstruction technique. Coronal and sagittal reformatted images were created and reviewed. COMPARISON: CT 05/08/17 and Radiographs dated 07/16/17 FINDINGS: Lower thorax: Surgical sutures seen within the right lung base possibly from previous partial lung resection. ABDOMEN: Liver: Unremarkable. No mass. Gallbladder and bile ducts: Cholecystectomy. No ductal dilation. Pancreas: Peripancreatic fat infiltration suggestive of acute pancreatitis. Hypodensity involving the pancreatic head suggestive of necrosis. No ductal dilation. Spleen: Splenic granulomas. Adrenals: Unremarkable. No mass. Kidneys and ureters: The left kidney is absent. No hydronephrosis. Stomach and bowel: Inflammation of the duodenum. No obstruction. No mucosal thickening. Appendix: No findings to suggest acute appendicitis. PELVIS: Bladder: Unremarkable. No mass. Reproductive: Unremarkable as visualized. ABDOMEN and PELVIS: Intraperitoneal space: Unremarkable. No free air. No significant fluid collection. Bones/joints: Partial visualization of intramedullary jose and screws within the left femur. Multilevel degenerative changes of the spine. No acute fracture. No dislocation. Soft tissues: Unremarkable. Vasculature: Unremarkable. No abdominal aortic aneurysm. Lymph nodes: Unremarkable. No enlarged lymph nodes. IMPRESSION: 1. Peripancreatic fat infiltration suggestive of acute pancreatitis. Hypodensity involving the pancreatic head suggestive of necrosis. 2. Inflammation of the duodenum.
[2017-09-10] MEDS ORDERED: THIAMINE 100 MG/ML 2 ML VIAL IM STA (09:19)
[2017-09-10] MEDS: LORazepam 2 MG/ML INJ IV PRN ×4 (11:07→22:53)
[2017-09-10] MEDS: MORPHINE SULFATE 4 MG/ML SYRINGE IV PRN ×3 (12:10→23:39)
[2017-09-10 14:07] LABS: Glucose,Whole Blood 220 mg/dL (75-99)
[2017-09-10] MEDS: PIPERACILLIN-TAZOBACTAM 3.375 GM in DEXTROSE/WATER 1 50ML.BAG IVPB SCH ×2 (14:53→23:47)
[2017-09-10] MEDS: THIAMINE 100 MG TAB PO SCH (16:25)
[2017-09-10] MEDS: cloNIDine 0.1 MG/24HR PATCH 1 PATCH PATCH TRANSDERM SCH (16:28)
[2017-09-10] MEDS: PANTOPRAZOLE 40 MG/10 ML VIAL IVP SCH ×2 (16:44→20:46)
[2017-09-10 17:58] LABS: Glucose,Whole Blood 189 mg/dL (75-99)
[2017-09-10] MEDS ORDERED: cloNIDine 0.2 MG/24HR PATCH 1 PATCH PATCH TRANSDERM SCH (18:30)
[2017-09-10 21:15] LABS: Glucose,Whole Blood 173 mg/dL (75-99)
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
[2017-09-11] MEDS: LORazepam 2 MG/ML INJ IV PRN ×7 (00:31→19:12)
[2017-09-11] MEDS: KETOROLAC 30 MG/ML 1 ML VIAL IVP PRN ×4 (01:28→20:30)
[2017-09-11 06:02] LABS: Basophils % (A) 0 %; Eosinophils # (A) 0.1 k/uL (0-0.7); Eosinophils % (A) 1 %; HCT 42.8 % (39.0-53.0); HGB 14.1 gm/dL (13.0-17.5); Lymphocytes # (A) 1.2 k/uL (1.0-4.8); Lymphocytes % (A) 11 %; MCH 33.8 pg (25.0-35.0); MCHC 32.9 g/dL (31.0-37.0); MCV 102.5 fL (80.0-100.0); Macrocytosis Slight; Mean Platelet Volume 6.4; Monocytes # (A) 0.5 k/uL (0-1.0); Monocytes % (A) 5 %; Neutrophils # (A) 8.7 k/uL (1.3-7.7); Neutrophils % (A) 82 %; Platelet Count 214 k/uL (150-450); RBC 4.17 m/uL (4.30-5.90); RDW 13.8 % (11.5-15.5); WBC 10.6 k/uL (3.8-10.6)
[2017-09-11 06:16] LABS: ALT 27 U/L (21-72); AST 17 U/L (17-59); Albumin 3.1 g/dL (3.5-5.0); Alkaline Phosphatase 59 U/L (38-126); Amylase 59 U/L (30-110); Anion Gap 9 mmol/L; Blood Urea Nitrogen 6 mg/dL (9-20); Calcium 7.9 mg/dL (8.4-10.2); Carbon Dioxide 27 mmol/L (22-30); Chloride 97 mmol/L (98-107); Glucose 163 mg/dL (74-99); Lipase 356 U/L (23-300); Potassium 3.8 mmol/L (3.5-5.1); Sodium 133 mmol/L (137-145); Total Protein 5.4 g/dL (6.3-8.2)
[2017-09-11 06:16] LABS: Glucose,Whole Blood 165 mg/dL (75-99)
[2017-09-11] MEDS: SODIUM CHLORIDE 0.9% 1,000 ML IV SCH ×3 (06:57→17:57)
[2017-09-11] MEDS: MORPHINE SULFATE 4 MG/ML SYRINGE IV PRN ×4 (07:56→20:30)
[2017-09-11] MEDS: PIPERACILLIN-TAZOBACTAM 3.375 GM in DEXTROSE/WATER 1 50ML.BAG IVPB SCH ×2 (07:59→17:05)
[2017-09-11] MEDS: ONDANSETRON 4 MG/2 ML VIAL IVP PRN ×2 (08:05→16:48)
[2017-09-11] MEDS: PANTOPRAZOLE 40 MG/10 ML VIAL IVP SCH ×2 (08:12→20:38)
[2017-09-11 11:15] LABS: Glucose,Whole Blood 169 mg/dL (75-99)
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
[2017-09-11] MEDS: THIAMINE 100 MG TAB PO SCH ×2 (11:49→17:57)
[2017-09-11] MEDS ORDERED: LABETALOL 200 MG TAB PO SCH (12:30)
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
[2017-09-11] MEDS: METOPROLOL TARTRATE 25 MG TAB PO SCH ×2 (14:39→20:38)
[2017-09-11] MEDS: LOSARTAN 50 MG TAB PO SCH (14:39)
[2017-09-11 16:44] LABS: Glucose,Whole Blood 193 mg/dL (75-99)
[2017-09-11] MEDS: INSULIN ASPART 100 UNIT/ML 1 ML 10 ML VIAL SQ SCH ×2 (17:56→20:48)
[2017-09-11 20:47] LABS: Glucose,Whole Blood 159 mg/dL (75-99)
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
[2017-09-12] MEDS: PIPERACILLIN-TAZOBACTAM 3.375 GM in DEXTROSE/WATER 1 50ML.BAG IVPB SCH ×4 (00:15→23:15)
[2017-09-12] MEDS: MORPHINE SULFATE 4 MG/ML SYRINGE IV PRN ×5 (00:27→16:45)
[2017-09-12] MEDS: LORazepam 2 MG/ML INJ IV PRN ×6 (00:28→20:37)
[2017-09-12] MEDS: hydrALAZINE HCL 20 MG/ML 1 ML VIAL IVP PRN (01:03)
[2017-09-12 01:22] LABS: Hemoglobin A1C 6.7 % (4.0-6.0)
[2017-09-12] MEDS: KETOROLAC 30 MG/ML 1 ML VIAL IVP PRN ×4 (02:27→20:37)
[2017-09-12] MEDS: SODIUM CHLORIDE 0.9% 1,000 ML IV SCH ×4 (02:27→16:51)
[2017-09-12 06:19] LABS: Basophils % (A) 0 %; Eosinophils # (A) 0.1 k/uL (0-0.7); Eosinophils % (A) 1 %; HCT 39.2 % (39.0-53.0); HGB 13.5 gm/dL (13.0-17.5); Lymphocytes # (A) 1.6 k/uL (1.0-4.8); Lymphocytes % (A) 21 %; MCH 35.1 pg (25.0-35.0); MCHC 34.6 g/dL (31.0-37.0); MCV 101.6 fL (80.0-100.0); Macrocytosis Slight; Mean Platelet Volume 6.8; Monocytes # (A) 0.4 k/uL (0-1.0); Monocytes % (A) 5 %; Neutrophils # (A) 5.5 k/uL (1.3-7.7); Neutrophils % (A) 71 %; Platelet Count 171 k/uL (150-450); RBC 3.86 m/uL (4.30-5.90); RDW 13.7 % (11.5-15.5); WBC 7.7 k/uL (3.8-10.6)
[2017-09-12 06:26] LABS: ALT 20 U/L (21-72); AST 10 U/L (17-59); Albumin 2.6 g/dL (3.5-5.0); Alkaline Phosphatase 42 U/L (38-126); Anion Gap 6 mmol/L; Blood Urea Nitrogen 5 mg/dL (9-20); Calcium 7.8 mg/dL (8.4-10.2); Carbon Dioxide 26 mmol/L (22-30); Chloride 97 mmol/L (98-107); Glucose 142 mg/dL (74-99); Potassium 3.5 mmol/L (3.5-5.1); Sodium 129 mmol/L (137-145); Total Bilirubin 0.8 mg/dL (0.2-1.3); Total Protein 4.8 g/dL (6.3-8.2)
[2017-09-12 06:35] LABS: Glucose,Whole Blood 135 mg/dL (75-99)
[2017-09-12] MEDS: INSULIN ASPART 100 UNIT/ML 1 ML 10 ML VIAL SQ SCH ×4 (06:39→20:57)
[2017-09-12] MEDS: METOPROLOL TARTRATE 25 MG TAB PO SCH ×2 (08:43→20:46)
[2017-09-12] MEDS: PANTOPRAZOLE 40 MG/10 ML VIAL IVP SCH (08:43)
[2017-09-12] MEDS: LOSARTAN 50 MG TAB PO SCH (08:43)
--- NOTE | 2017-09-12 08:54 | P.PN ---
Subjective Progress Note Date: 09/12/17 Principal diagnosis: pancreatitis 37-year-old male admitted with alcohol pancreatitis. Still reports upper abdominal pain but improved from yesterday. Afebrile. Morning chemistries pending. Tolerating clear liquids. Objective - Vital Signs Vital signs: Vital Signs Temp 97.5 F L 09/12/17 03:10 Pulse 106 H 09/12/17 03:10 Resp 18 09/12/17 03:10 BP 137/83 09/12/17 04:41 Pulse Ox 97 09/12/17 03:10 Intake & Output 09/11/17 09/12/17 09/12/17 18:59 06:59 18:59 Intake Total 1580 2180 240 Output Total 500 Balance 1080 2180 240 Weight 77 kg 78.8 kg Intake: Intake, IV Titration 1100 1400 Amount Piperacillin-Tazobactam 3 50 50 .375 gm In Dextrose/Water 1 50ml.bag @ 12.5 mls/hr IVPB Q8HR RAUDEL Rx#: [id number] Sodium Chloride 0.9% 1, 1050 1350 000 ml @ 150 mls/hr IV . Q6H40M RAUDEL Rx#:[id number] Oral 480 780 240 Output: Urine 500 Other: Voiding Method Urinal # Voids 1 - Exam General appearance: The patient is alert, oriented, in no acute distress. HET: Head is normocephalic and atraumatic. Pupils are equal and reactive. Oropharynx is clear without lesions. Neck: Supple without lymphadenopathy. Trachea midline. Heart: S1 S2. Regular rate and rhythm. Lungs: No crackles or wheezes are heard. Abdomen: Soft, mild midepigastric tenderness, nondistended with bowel sounds. No peritoneal signs. No palpable organomegaly or masses. Extremities: Normal skin color and turgor. No cyanosis, rash, ulceration, clubbing, or edema. Radial and pedal pulses are 2/4 bilaterally. Neurological: No focal deficits. Strength and sensation are grossly intact. - Labs CBC & Chem 7: 09/12/17 05:43 09/12/17 05:43 Labs: Abnormal Lab Results - Last 24 Hours (Table) 09/11/17 09/11/17 09/11/17 Range/Units 05:33 11:11 16:32 RBC (4.30-5.90) m/uL MCV (80.0-100.0) fL MCH (25.0-35.0) pg Sodium (137-145) mmol/L Chloride (98-107) mmol/L BUN (9-20) mg/dL Glucose (74-99) mg/dL POC Glucose (mg/dL) 169 H 193 H (75-99) mg/dL Hemoglobin A1c 6.7 H (4.0-6.0) % Calcium (8.4-10.2) mg/dL AST (17-59) U/L ALT (21-72) U/L Total Protein (6.3-8.2) g/dL Albumin (3.5-5.0) g/dL 09/11/17 09/12/17 09/12/17 Range/Units 20:44 05:43 05:43 RBC 3.86 L (4.30-5.90) m/uL MCV 101.6 H (80.0-100.0) fL MCH 35.1 H (25.0-35.0) pg Sodium 129 L (137-145) mmol/L Chloride 97 L (98-107) mmol/L BUN 5 L (9-20) mg/dL Glucose 142 H (74-99) mg/dL POC Glucose (mg/dL) 159 H (75-99) mg/dL Hemoglobin A1c (4.0-6.0) % Calcium 7.8 L (8.4-10.2) mg/dL AST 10 L (17-59) U/L ALT 20 L (21-72) U/L Total Protein 4.8 L (6.3-8.2) g/dL Albumin 2.6 L (3.5-5.0) g/dL 09/12/17 Range/Units 06:19 RBC (4.30-5.90) m/uL MCV (80.0-100.0) fL MCH (25.0-35.0) pg Sodium (137-145) mmol/L Chloride (98-107) mmol/L BUN (9-20) mg/dL Glucose (74-99) mg/dL POC Glucose (mg/dL) 135 H (75-99) mg/dL Hemoglobin A1c (4.0-6.0) % Calcium (8.4-10.2) mg/dL AST (17-59) U/L ALT (21-72) U/L Total Protein (6.3-8.2) g/dL Albumin (3.5-5.0) g/dL Assessment and Plan (1) Acute alcoholic pancreatitis Current Visit: Yes Status: Acute Code(s): K85.20 - ALCOHOL INDUCED ACUTE PANCREATITIS WITHOUT NECROSIS OR INFCT SNOMED Code(s): 611503321 Plan: 1. Pancreatic enzymes improved yesterday morning chemistries pending. Abdominal pain improving. Continue IV hydration. GI prophylaxis Protonix 40 mg twice daily. Continue with IV antibiotics. 2. General surgical consultation recommendation reviewed and appreciated. 3. Low-fat diet. Alcohol abstinence advised. Assessment and plan a care discussed with Dr. Navarro
[2017-09-12 11:35] LABS: Glucose,Whole Blood 169 mg/dL (75-99)
--- NOTE | 2017-09-12 12:05 | P.PN ---
Subjective Progress Note Date: 09/12/17 37-year-old male seen and examined at bedside arousable to verbal stimuli CIWA protocol in place for EtOH with impending DTs patient has been admitted with alcohol pancreatitis. Patient was seen by surgical service at the request of the attending for abdominal pain mainly in the epigastric area patient continues to report having mild discomfort in the upper epigastric area Objective - Vital Signs Vital signs: Vital Signs Temp 98.3 F 09/12/17 11:47 Pulse 94 09/12/17 11:47 Resp 20 09/12/17 11:47 BP 121/89 09/12/17 11:47 Pulse Ox 99 09/12/17 11:47 Intake & Output 09/11/17 09/12/17 09/12/17 18:59 06:59 18:59 Intake Total 1580 2180 240 Output Total 500 Balance 1080 2180 240 Weight 77 kg 78.8 kg Intake: Intake, IV Titration 1100 1400 Amount Piperacillin-Tazobactam 3 50 50 .375 gm In Dextrose/Water 1 50ml.bag @ 12.5 mls/hr IVPB Q8HR RAUDEL Rx#: [id number] Sodium Chloride 0.9% 1, 1050 1350 000 ml @ 150 mls/hr IV . Q6H40M RAUDEL Rx#:[id number] Oral 480 780 240 Output: Urine 500 Other: Voiding Method Urinal # Voids 1 - Exam Physical exam 37-year-old male resting comfortably in bed eyes closed opens to verbal stimuli appears in no acute distress Lungs clear adequate air movement Heart S1-S2 audible regular Abdomen well-healed surgical scar to mid abdomen nontender not distended bowel tones active taking ice chips tolerating Extremities no edema no tremors - Labs CBC & Chem 7: 09/12/17 05:43 09/12/17 05:43 Labs: Abnormal Lab Results - Last 24 Hours (Table) 09/11/17 09/11/17 09/11/17 Range/Units 05:33 16:32 20:44 RBC (4.30-5.90) m/uL MCV (80.0-100.0) fL MCH (25.0-35.0) pg Sodium (137-145) mmol/L Chloride (98-107) mmol/L BUN (9-20) mg/dL Glucose (74-99) mg/dL POC Glucose (mg/dL) 193 H 159 H (75-99) mg/dL Hemoglobin A1c 6.7 H (4.0-6.0) % Calcium (8.4-10.2) mg/dL AST (17-59) U/L ALT (21-72) U/L Total Protein (6.3-8.2) g/dL Albumin (3.5-5.0) g/dL 09/12/17 09/12/17 09/12/17 Range/Units 05:43 05:43 06:19 RBC 3.86 L (4.30-5.90) m/uL MCV 101.6 H (80.0-100.0) fL MCH 35.1 H (25.0-35.0) pg Sodium 129 L (137-145) mmol/L Chloride 97 L (98-107) mmol/L BUN 5 L (9-20) mg/dL Glucose 142 H (74-99) mg/dL POC Glucose (mg/dL) 135 H (75-99) mg/dL Hemoglobin A1c (4.0-6.0) % Calcium 7.8 L (8.4-10.2) mg/dL AST 10 L (17-59) U/L ALT 20 L (21-72) U/L Total Protein 4.8 L (6.3-8.2) g/dL Albumin 2.6 L (3.5-5.0) g/dL 09/12/17 Range/Units 11:20 RBC (4.30-5.90) m/uL MCV (80.0-100.0) fL MCH (25.0-35.0) pg Sodium (137-145) mmol/L Chloride (98-107) mmol/L BUN (9-20) mg/dL Glucose (74-99) mg/dL POC Glucose (mg/dL) 169 H (75-99) mg/dL Hemoglobin A1c (4.0-6.0) % Calcium (8.4-10.2) mg/dL AST (17-59) U/L ALT (21-72) U/L Total Protein (6.3-8.2) g/dL Albumin (3.5-5.0) g/dL Assessment and Plan Assessment: Impression Present on admission mid epigastric pain elevated pancreatic enzymes lipase amylase suspect due to acute alcoholic pancreatitis History of chronic alcoholism Acute alcohol intoxication present on admission with impending DTs Reoccurring episodes of pancreatitis likely alcohol induced Chronic pain with narcotic dependency Present on admission leukocytosis Present on admission computed tomography scan abdomen pelvis report indicate suggestive of acute pancreatitis with a hypodensity involving the pancreatic head suggestive of necrosis Hypertension urgency present on admission Plan We'll sign off and re-eval as needed Continue recommendations by GI service for treatment of the acute pancreatitis IV hydration as ordered No evidence of an acute surgical abdomen at this time GI prophylaxis protonix as ordered [facility] protocol for impending DTs Surgical consultation dictated by Dr. paulino The above impression and plan of care have been discussed and directed by signing physician. Lana Herrera nurse practitioner acting as scribe for signing physician.
[2017-09-12] MEDS: ONDANSETRON 4 MG/2 ML VIAL IVP PRN (14:33)
[2017-09-12 16:37] LABS: Glucose,Whole Blood 134 mg/dL (75-99)
[2017-09-12] MEDS: THIAMINE 100 MG TAB PO SCH ×2 (16:52→17:03)
[2017-09-12] MEDS: PANTOPRAZOLE 40 MG TABLET PO SCH (17:06)
[2017-09-12] MEDS: MORPHINE ORAL SOLN 10 MG/5 ML CUP PO PRN (20:36)
[2017-09-12 20:54] LABS: Glucose,Whole Blood 176 mg/dL (75-99)
[2017-09-12] MEDS: NICOTINE 14MG/24HR PATCH TRANSDERM SCH (23:16)
[2017-09-13] MEDS: MORPHINE ORAL SOLN 10 MG/5 ML CUP PO PRN ×4 (00:50→12:41)
[2017-09-13] MEDS: LORazepam 2 MG/ML INJ IV PRN ×4 (00:50→12:41)
[2017-09-13] MEDS: ONDANSETRON 4 MG/2 ML VIAL IVP PRN (00:56)
[2017-09-13] MEDS: SODIUM CHLORIDE 0.9% 1,000 ML IV SCH (03:02)
[2017-09-13] MEDS: KETOROLAC 30 MG/ML 1 ML VIAL IVP PRN (03:05)
[2017-09-13] MEDS: hydrALAZINE HCL 20 MG/ML 1 ML VIAL IVP PRN (03:12)
[2017-09-13 05:57] LABS: Glucose,Whole Blood 160 mg/dL (75-99)
[2017-09-13] MEDS: INSULIN ASPART 100 UNIT/ML 1 ML 10 ML VIAL SQ SCH ×2 (06:13→12:02)
[2017-09-13] MEDS: PANTOPRAZOLE 40 MG TABLET PO SCH (06:13)
[2017-09-13 06:36] LABS: ALT 21 U/L (21-72); AST 12 U/L (17-59); Albumin 2.4 g/dL (3.5-5.0); Alkaline Phosphatase 40 U/L (38-126); Anion Gap 7 mmol/L; Blood Urea Nitrogen 3 mg/dL (9-20); Carbon Dioxide 25 mmol/L (22-30); Chloride 101 mmol/L (98-107); Glucose 168 mg/dL (74-99); Potassium 3.4 mmol/L (3.5-5.1); Sodium 133 mmol/L (137-145); Total Bilirubin 0.6 mg/dL (0.2-1.3); Total Protein 4.7 g/dL (6.3-8.2)
[2017-09-13] MEDS: METOPROLOL TARTRATE 25 MG TAB PO SCH (08:44)
[2017-09-13] MEDS: LOSARTAN 50 MG TAB PO SCH (08:44)
[2017-09-13] MEDS: NICOTINE 14MG/24HR PATCH TRANSDERM SCH (08:44)
[2017-09-13] MEDS: PIPERACILLIN-TAZOBACTAM 3.375 GM in DEXTROSE/WATER 1 50ML.BAG IVPB SCH (08:47)
[2017-09-13 09:27] VITALS: RESP 20
[2017-09-13 10:20] VITALS: BMI 25.2
[2017-09-13 11:55] LABS: Glucose,Whole Blood 273 mg/dL (75-99)
[2017-09-13] MEDS ORDERED: POTASSIUM CHLORIDE ER 20 MEQ TAB.ER PO STA (12:15)
[2017-09-13 12:17] VITALS: BP 132/79; PULSE 99; TEMP 97.4
== END 2017-09-13 14:25 | disposition home or self-care (01) | DRG 439 ==
LOC: EC 00:59 → 3SUR 05:44 → 6SEL 07:29
PROVIDERS: ADMIT Hospitalist; ATTEND Hospitalist
DX: K85.20 Alcohol induced acute pancreatitis without necrosis or infection (principal); F10.239 Alcohol dependence with withdrawal, unspecified; E11.41 Type 2 diabetes mellitus with diabetic mononeuropathy; F11.20 Opioid dependence, uncomplicated; E03.9 Hypothyroidism, unspecified; E11.65 Type 2 diabetes mellitus with hyperglycemia; E78.5 Hyperlipidemia, unspecified; F17.200 Nicotine dependence, unspecified, uncomplicated; F31.9 Bipolar disorder, unspecified; G40.909 Epilepsy, unspecified, not intractable, without status epilepticus; G43.909 Migraine, unspecified, not intractable, without status migrainosus; G89.29 Other chronic pain; I10 Essential (primary) hypertension; I16.0 Hypertensive urgency; K21.9 Gastro-esophageal reflux disease without esophagitis; N40.0 Benign prostatic hyperplasia without lower urinary tract symptoms; V89.2XXS Person injured in unspecified motor-vehicle accident, traffic, sequela; Z79.4 Long term (current) use of insulin; Z79.899 Other long term (current) drug therapy; Z82.49 Family history of ischemic heart disease and other diseases of the circulatory system; Z90.81 Acquired absence of spleen; Z90.5 Acquired absence of kidney; Z98.1 Arthrodesis status
CPT/HCPCS: 36415; 74177; 80053; 81001; 82150; 83036; 83690; 85025; 93005; 96361; 96365; 96366; 96372; 96375; 96376; 99285

== ENCOUNTER 2018-03-27 18:25 | Inpatient (IN) | payer OTHER ==
[2018-03-27] MEDS ORDERED: SODIUM CHLORIDE 0.9% 1,000 ML IV ONE (19:32)
[2018-03-27] MEDS ORDERED: MORPHINE SULFATE 4 MG/ML SYRINGE IVP STA ×2 (19:32→21:25)
[2018-03-27] MEDS ORDERED: PANTOPRAZOLE 40 MG/10 ML VIAL IVP STA (19:32)
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
[2018-03-27 19:40] LABS: Basophils # (A) 0.1 k/uL (0-0.2); Basophils % (A) 0 %; Eosinophils # (A) 0.2 k/uL (0-0.7); Eosinophils % (A) 1 %; HCT 47.8 % (39.0-53.0); HGB 16.4 gm/dL (13.0-17.5); Lymphocytes % (A) 8 %; MCH 36.1 pg (25.0-35.0); MCHC 34.4 g/dL (31.0-37.0); Macrocytosis Slight; Mean Platelet Volume 6.6; Monocytes % (A) 8 %; Neutrophils # (A) 10.3 k/uL (1.3-7.7); Neutrophils % (A) 82 %; Platelet Count 226 k/uL (150-450); RBC 4.55 m/uL (4.30-5.90); RDW 12.8 % (11.5-15.5); WBC 12.6 k/uL (3.8-10.6)
[2018-03-27] MEDS ORDERED: LORazepam 2 MG/ML INJ IV STA ×2 (19:42→20:52)
[2018-03-27 19:52] LABS: ALT 84 U/L (21-72); AST 109 U/L (17-59); Albumin 4.2 g/dL (3.5-5.0); Alcohol 30 mg/dL; Alkaline Phosphatase 70 U/L (38-126); Amylase 164 U/L (30-110); Anion Gap 13 mmol/L; Blood Urea Nitrogen 17 mg/dL (9-20); Carbon Dioxide 24 mmol/L (22-30); Chloride 101 mmol/L (98-107); Glucose 86 mg/dL (74-99); Lipase 1178 U/L (23-300); Potassium 4.4 mmol/L (3.5-5.1); Sodium 138 mmol/L (137-145); Total Bilirubin 1.5 mg/dL (0.2-1.3); Total Protein 6.9 g/dL (6.3-8.2)
[2018-03-27 20:01] LABS: Creatine Kinase 389 U/L (55-170)
[2018-03-27] MEDS: LABETALOL 5 MG/ML VIAL MDV IVP SCH (20:01)
[2018-03-27 20:14] LABS: Creatine Kinase MB 5.1 ng/mL (0.0-2.4); Troponin I <0.012 ng/mL (0.000-0.034)
--- NOTE | 2018-03-27 20:54 | CT ---
EXAMINATION TYPE: CT abdomen pelvis w con DATE OF EXAM: 03/27/2018 COMPARISON: 09/10/2017 HISTORY: ABDOMINAL PAIN CT DLP: 457 mGycm Automated exposure control for dose reduction was used. TECHNIQUE: Helical acquisition of images was performed from the lung bases through the pelvis. CONTRAST: Performed without Oral Contrast and with IV Contrast, patient injected with 100 mL of Isovue 300. FINDINGS: The lung bases are clear of consolidation. There is no pleural effusion. Heart size is normal. There are clips from cholecystectomy. Liver shows no focal defect. Spleen shows multiple small calcif ied granulomata. There is no evidence of a splenic mass. There is no pancreatic mass. There is mild i ncreased density in the peripancreatic fat. There is no adrenal mass. Left kidney is absent. Right kidney appears to have compensatory hypertroph y. There is no hydronephrosis. There is no retroperitoneal adenopathy. There is no evidence of mesent cole adenopathy. There is no intestinal wall thickening. There are no dilated loops. Bladder distends smoothly. There is no free fluid in the pelvis. There is no evidence of pneumoperitoneum. There is n o inguinal hernia. There is no umbilical hernia. Lumbar spine appears intact. The soft tissues appear normal. There is hardware in the left proximal femur. IMPRESSION: THERE IS FAT STRANDING AND FLUID AROUND THE PANCREAS CONSISTENT WITH PANCREATITIS. THIS APPEARS IMPRO DARWIN COMPARED TO LAST CT SCAN. NO DILATED DUCTS.
[2018-03-27] MEDS: SODIUM CHLORIDE 0.9% 1,000 ML IV SCH (20:56)
--- NOTE | 2018-03-27 21:14 | XR ---
EXAMINATION TYPE: XR chest 2V DATE OF EXAM: 03/27/2018 COMPARISON: 05/08/2017 HISTORY: Chest pain TECHNIQUE: Frontal and lateral views of the chest are obtained. FINDINGS: Heart and mediastinum are normal. Lungs are clear. Diaphragm is normal. Bony thorax is int act. IMPRESSION: Normal chest. No adverse change compared to old exam. Old left-sided healed rib fracture s noted.
[2018-03-27] MEDS ORDERED: LORazepam 2 MG/ML INJ IV PRN ×2 (21:20)
[2018-03-27] MEDS ORDERED: THIAMINE 100 MG/ML 2 ML VIAL IM STA (21:20)
[2018-03-27] MEDS ORDERED: hydrALAZINE HCL 20 MG/ML 1 ML VIAL IVP STA (21:25)
[2018-03-27 21:33] LABS: Appearance,Urine Clear (Clear); Bilirubin,Urine Negative (Negative); Blood,Urine Negative (Negative); Color,Urine Yellow; Glucose,Urine (UA) 1+ (Negative); Ketones,Urine Negative (Negative); Leukocyte Esterase,Urine Negative (Negative); Nitrite,Urine Negative (Negative); PH, Urine 6.5 (5.0-8.0); Protein,Urine Negative (Negative); Specific Gravity,Urine 1.031 (1.001-1.035); Urobilinogen,Urine <2.0 mg/dL (<2.0)
[2018-03-27 21:44] LABS: Amphetamine Screen,Urine Not Detected (NotDetected); Barbiturate Screen,Urine Not Detected (NotDetected); Benzodiazepines Screen,Urine Not Detected (NotDetected); Cocaine Screen,Urine Not Detected (NotDetected); Methadone Screen, Urine Not Detected (NotDetected); Opiate Screen,Urine Not Detected (NotDetected); Oxycodone Screen, Urine Not Detected (NotDetected); Phencyclidine Screen,Urine Not Detected (NotDetected); Tricyclic Antidepressant,Urine Not Detected (NotDetected); Urn Cannabinoid Scrn Detected (NotDetected)
[2018-03-27] MEDS ORDERED: NALOXONE 0.4 MG/ML 1 ML VIAL IV PRN (21:53)
[2018-03-27] MEDS ORDERED: MORPHINE SULFATE 4 MG/ML SYRINGE IV PRN (21:53)
[2018-03-28] MEDS: LORazepam 2 MG/ML INJ IV PRN ×4 (02:49→21:14)
[2018-03-28] MEDS: METOPROLOL TARTRATE 25 MG TAB PO SCH ×2 (02:54→11:04)
[2018-03-28 06:14] LABS: Basophils % (A) 0 %; Eosinophils # (A) 0.1 k/uL (0-0.7); Eosinophils % (A) 1 %; HCT 48.9 % (39.0-53.0); HGB 16.6 gm/dL (13.0-17.5); Lymphocytes # (A) 1.1 k/uL (1.0-4.8); Lymphocytes % (A) 9 %; MCH 35.6 pg (25.0-35.0); MCV 104.6 fL (80.0-100.0); Macrocytosis Slight; Mean Platelet Volume 7.5; Monocytes # (A) 0.8 k/uL (0-1.0); Monocytes % (A) 6 %; Neutrophils # (A) 10.1 k/uL (1.3-7.7); Neutrophils % (A) 83 %; Platelet Count 213 k/uL (150-450); RBC 4.67 m/uL (4.30-5.90); RDW 12.8 % (11.5-15.5); WBC 12.3 k/uL (3.8-10.6)
[2018-03-28 06:36] LABS: ALT 75 U/L (21-72); AST 95 U/L (17-59); Albumin 3.7 g/dL (3.5-5.0); Alkaline Phosphatase 67 U/L (38-126); Anion Gap 12 mmol/L; Blood Urea Nitrogen 10 mg/dL (9-20); Calcium 8.8 mg/dL (8.4-10.2); Carbon Dioxide 22 mmol/L (22-30); Chloride 99 mmol/L (98-107); Glucose 79 mg/dL (74-99); Lipase 519 U/L (23-300); Magnesium 1.4 mg/dL (1.6-2.3); Potassium 3.6 mmol/L (3.5-5.1); Sodium 133 mmol/L (137-145); Total Bilirubin 1.9 mg/dL (0.2-1.3); Total Protein 6.3 g/dL (6.3-8.2)
[2018-03-28] MEDS: LEVOTHYROXINE 50 MCG TAB PO SCH (06:55)
[2018-03-28] MEDS: ONDANSETRON 4 MG/2 ML VIAL IVP PRN ×2 (08:22→21:13)
[2018-03-28] MEDS: PANTOPRAZOLE 40 MG/10 ML VIAL IV SCH (10:53)
[2018-03-28] MEDS ORDERED: Magnesium Replacement Protocol 1 EACH MISC MISCELLANE PRN (13:45)
[2018-03-28 14:17] VITALS: BMI 23.6
[2018-03-28] MEDS ORDERED: Potassium Replacement Protocol 1 EACH MISC MISCELLANE PRN (14:30)
[2018-03-28] MEDS ORDERED: ALBUTEROL NEBULIZED 2.5 MG/3 ML INHALATION PRN (14:40)
[2018-03-28] MEDS: HYDROcodone/APAP 5-325MG 1 EACH TAB PO PRN ×2 (14:45→22:26)
[2018-03-28] MEDS: THIAMINE 100 MG TAB PO SCH ×2 (14:51→17:01)
[2018-03-28] MEDS: MAGNESIUM SULFATE-D5W PMX 1 GM in DEXTROSE/WATER 1 100ML.BAG IVPB SCH ×3 (14:55→17:53)
[2018-03-28] MEDS: SODIUM CHLORIDE 0.9% 1,000 ML IV SCH ×2 (15:50→23:56)
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
[2018-03-28] MEDS: IPRATROPIUM 0.5 MG/2.5 ML NEBU INHALATION SCH ×2 (16:19→21:10)
[2018-03-28] MEDS: LABETALOL 5 MG/ML VIAL MDV IVP SCH ×3 (16:22→16:24)
[2018-03-28] MEDS: NICOTINE 21MG/24HR PATCH TRANSDERM SCH (17:53)
[2018-03-28 17:54] LABS: Glucose,Whole Blood 158 mg/dL (75-99)
[2018-03-28] MEDS: INSULIN ASPART 100 UNIT/ML 1 ML 10 ML VIAL SQ SCH ×2 (17:54→22:10)
[2018-03-28 21:05] LABS: Glucose,Whole Blood 264 mg/dL (75-99)
[2018-03-28] MEDS: GABAPENTIN 300 MG CAP PO SCH (21:52)
[2018-03-29] MEDS: LORazepam 2 MG/ML INJ IV PRN ×6 (04:43→21:46)
[2018-03-29] MEDS: HYDROcodone/APAP 5-325MG 1 EACH TAB PO PRN ×5 (05:31→22:45)
[2018-03-29] MEDS: METOPROLOL TARTRATE 25 MG TAB PO SCH ×2 (05:42→20:12)
[2018-03-29] MEDS: LEVOTHYROXINE 50 MCG TAB PO SCH (06:47)
[2018-03-29 07:21] LABS: Glucose,Whole Blood 113 mg/dL (75-99)
[2018-03-29] MEDS: IPRATROPIUM 0.5 MG/2.5 ML NEBU INHALATION SCH ×4 (07:30→20:29)
[2018-03-29] MEDS: INSULIN ASPART 100 UNIT/ML 1 ML 10 ML VIAL SQ SCH ×4 (07:37→21:46)
[2018-03-29] MEDS: SODIUM CHLORIDE 0.9% 1,000 ML IV SCH ×3 (07:55→21:46)
[2018-03-29] MEDS: GABAPENTIN 300 MG CAP PO SCH ×2 (07:56→20:12)
[2018-03-29] MEDS: NICOTINE 21MG/24HR PATCH TRANSDERM SCH (07:56)
[2018-03-29] MEDS: PANTOPRAZOLE 40 MG/10 ML VIAL IV SCH (07:57)
[2018-03-29 08:30] LABS: HCT 47.3 % (39.0-53.0); HGB 15.4 gm/dL (13.0-17.5); MCH 34.7 pg (25.0-35.0); MCHC 32.6 g/dL (31.0-37.0); MCV 106.6 fL (80.0-100.0); Macrocytosis Moderate; Mean Platelet Volume 7.5; Platelet Count 194 k/uL (150-450); RBC 4.44 m/uL (4.30-5.90); RDW 12.8 % (11.5-15.5); WBC 6.5 k/uL (3.8-10.6)
[2018-03-29 08:44] LABS: ALT 48 U/L (21-72); AST 43 U/L (17-59); Albumin 2.9 g/dL (3.5-5.0); Alkaline Phosphatase 54 U/L (38-126); Anion Gap 9 mmol/L; Blood Urea Nitrogen 7 mg/dL (9-20); Calcium 8.2 mg/dL (8.4-10.2); Carbon Dioxide 24 mmol/L (22-30); Chloride 103 mmol/L (98-107); Glucose 111 mg/dL (74-99); Magnesium 1.9 mg/dL (1.6-2.3); Potassium 4.1 mmol/L (3.5-5.1); Sodium 136 mmol/L (137-145); Total Bilirubin 1.6 mg/dL (0.2-1.3); Total Protein 5.3 g/dL (6.3-8.2)
[2018-03-29] MEDS ORDERED: INSULIN DETEMIR 100 UNIT/ML 10 ML VIAL SQ SCH ×2 (09:00)
[2018-03-29] MEDS: THIAMINE 100 MG TAB PO SCH ×2 (11:42→17:22)
[2018-03-29 12:06] LABS: Glucose,Whole Blood 227 mg/dL (75-99)
--- NOTE | 2018-03-29 15:34 | P.PN ---
Subjective Progress Note Date: 03/29/18 Progress note being dictated for Dr. Villagomez. Hospital course:32-year-old male came in with epigastric abdominal burning sensation patient the drinks a daily basis patient is being admitted for acute on chronic pancreatitis. Patient lipase has come down, patient is able to tolerate liquid diet without nausea vomiting patient had multiple episodes of nausea vomiting. Patient is willing to quit alcohol. Patient consumes large amounts of alcohol daily. Patient has epigastric burning sensation severe yesterday which improved today still has some pain patient was started on Protonix patient has elevated liver enzymes. Patient denied any fever chills nausea vomiting dysuria patient is also hyponatremic with elevated lactic acid due to intravascular volume depletion dehydration and poor organ perfusion. Patient was started on alcoholic CIWA withdrawal protocol Review of Systems REVIEW OF SYSTEMS: CONSTITUTIONAL: No fever, no malaise, no fatigue. HEENT: No recent visual problems or hearing problems. Denied any sore throat. CARDIOVASCULAR: No chest pain, orthopnea, PND, no palpitations, no syncope. PULMONARY: No shortness of breath, no cough, no hemoptysis. GASTROINTESTINAL: As mentioned in HPI NEUROLOGICAL: No headaches, no weakness, no numbness. HEMATOLOGICAL: Denies any bleeding or petechiae. GENITOURINARY: Denies any burning micturition, frequency, or urgency. MUSCULOSKELETAL/RHEUMATOLOGICAL: Denies any joint pain, swelling, or any muscle pain. ENDOCRINE: Denies any polyuria or polydipsia. The rest of the 14-point review of systems is negative. 03/29/18 active DTs,CIWA score "8", requiring Ativan every 2 hrs. maintained on gentle IV fluid hydration,PPI. T bili improving down to 1.6, lipase decreased to 519. AST, ALT normalized/. Diet intake improving. Denies abdominal pain. Denies chest pain, palpitations or shortness of breath. Objective - Vital Signs Vital signs: Vital Signs Temp 98.6 F 03/29/18 09:03 Pulse 83 03/29/18 09:03 Resp 16 03/29/18 09:03 BP 144/92 03/29/18 09:03 Pulse Ox 98 03/29/18 09:03 Intake & Output 03/28/18 03/29/18 03/29/18 18:59 06:59 18:59 Intake Total 100 Balance 100 Weight 72.575 kg Intake: Intake, IV Titration 100 Amount Magnesium Sulfate-D5w Pmx 100 1 gm In Dextrose/Water 1 100ml.bag @ 100 mls/hr IVPB Q1H [facility] Rx#: [id number] Other: Voiding Method Toilet Toilet Toilet # Voids 1 - Exam GENERAL: The patient is alert and oriented x3, not in any acute distress. Well developed, well nourished. HEENT: Pupils are round and equally reacting to light. EOMI. No scleral icterus. No conjunctival pallor. Normocephalic, atraumatic. No pharyngeal erythema. CARDIOVASCULAR: S1 and S2 present. No murmurs, rubs, or gallops. PULMONARY: Chest is clear to auscultation, no wheezing or crackles. ABDOMEN: Soft, nontender, nondistended, normoactive bowel sounds. No palpable organomegaly. MUSCULOSKELETAL: No joint swelling or deformity. EXTREMITIES: No cyanosis, clubbing, or pedal edema. NEUROLOGICAL: Gross neurological examination did not reveal any focal deficits. SKIN: No rashes. - Labs CBC & Chem 7: 03/29/18 07:33 03/29/18 07:33 Labs: Abnormal Lab Results - Last 24 Hours (Table) 03/28/18 03/28/18 03/28/18 Range/Units 05:16 17:07 21:03 MCV (80.0-100.0) fL Sodium (137-145) mmol/L BUN (9-20) mg/dL Glucose (74-99) mg/dL POC Glucose (mg/dL) 158 H 264 H (75-99) mg/dL Hemoglobin A1c 7.0 H (4.0-6.0) % Calcium (8.4-10.2) mg/dL Total Bilirubin (0.2-1.3) mg/dL Total Protein (6.3-8.2) g/dL Albumin (3.5-5.0) g/dL 03/29/18 03/29/18 03/29/18 Range/Units 07:10 07:33 07:33 MCV 106.6 H (80.0-100.0) fL Sodium 136 L (137-145) mmol/L BUN 7 L (9-20) mg/dL Glucose 111 H (74-99) mg/dL POC Glucose (mg/dL) 113 H (75-99) mg/dL Hemoglobin A1c (4.0-6.0) % Calcium 8.2 L (8.4-10.2) mg/dL Total Bilirubin 1.6 H (0.2-1.3) mg/dL Total Protein 5.3 L (6.3-8.2) g/dL Albumin 2.9 L (3.5-5.0) g/dL 03/29/18 Range/Units 11:47 MCV (80.0-100.0) fL Sodium (137-145) mmol/L BUN (9-20) mg/dL Glucose (74-99) mg/dL POC Glucose (mg/dL) 227 H (75-99) mg/dL Hemoglobin A1c (4.0-6.0) % Calcium (8.4-10.2) mg/dL Total Bilirubin (0.2-1.3) mg/dL Total Protein (6.3-8.2) g/dL Albumin (3.5-5.0) g/dL Assessment and Plan Assessment: -Abdominal pain: Most is seconded alcoholic gastritis -Acute on chronic pancreatitis improving -Hyponatremia hypovolemic -Lactic acidosis secondary to intravascularly patient decrease organ perfusion secondary to alcoholism -Leukocytosis reactive without any signs or symptoms of infection -Acute alcoholic hepatitis -Hypertension: Patient is actually hypotensive hold off on ROBER inhibitor temporarily for now Diabetes mellitus type 2 Plan: Continue on current medication regime ,monitoring and symptomatic treatment. Maintain IV fluid hydration,CIWA protocol. Discharge planning in progress for tomorrow pending improvement. Increase ambulation as tolerated. The impression and plan of care has been dictated as directed. : I performed a history and examination of this patient, discussed the same with the dictator. I agree with the dictator's note ,documented as a scribe. Any additional findings or plans will be noted.
[2018-03-29 17:43] LABS: Glucose,Whole Blood 255 mg/dL (75-99)
[2018-03-29 21:48] LABS: Glucose,Whole Blood 242 mg/dL (75-99)
[2018-03-30] MEDS: LORazepam 2 MG/ML INJ IV PRN ×4 (01:16→07:51)
[2018-03-30] MEDS: HYDROcodone/APAP 5-325MG 1 EACH TAB PO PRN ×2 (02:58→07:50)
[2018-03-30] MEDS: METOPROLOL TARTRATE 25 MG TAB PO SCH (06:06)
[2018-03-30] MEDS: LEVOTHYROXINE 50 MCG TAB PO SCH (06:26)
[2018-03-30] MEDS: IPRATROPIUM 0.5 MG/2.5 ML NEBU INHALATION SCH (07:29)
[2018-03-30 07:47] VITALS: PULSE 85; RESP 18; TEMP 98.8
[2018-03-30] MEDS: NICOTINE 21MG/24HR PATCH TRANSDERM SCH (07:50)
[2018-03-30] MEDS: SODIUM CHLORIDE 0.9% 1,000 ML IV SCH (07:51)
[2018-03-30 07:52] VITALS: BP 166/119
[2018-03-30] MEDS: PANTOPRAZOLE 40 MG/10 ML VIAL IV SCH (07:52)
[2018-03-30] MEDS: GABAPENTIN 300 MG CAP PO SCH (07:52)
[2018-03-30] MEDS: INSULIN ASPART 100 UNIT/ML 1 ML 10 ML VIAL SQ SCH (08:01)
[2018-03-30 08:02] LABS: Glucose,Whole Blood 353 mg/dL (75-99)
[2018-03-30] MEDS ORDERED: INSULIN DETEMIR 100 UNIT/ML 10 ML VIAL SQ SCH (09:00)
--- NOTE | 2018-03-31 09:54 | P.DS ---
Providers Date of admission: 03/27/18 21:58 Expected date of discharge: 03/30/18 Attending physician: Inna Banda Primary care physician: Gabi Duran [facility] Course: left ama Patient Condition at Discharge: Serious Plan - Discharge Summary Discharge Rx Participant: No New Discharge Prescriptions: No Action Testosterone Cypionate [Depo-Testosterone] 300 mg IM Q30D Simvastatin [Zocor] 20 mg PO HS Levothyroxine Sodium [Synthroid] 50 mcg PO DAILY Ipratropium [place] [Atrovent Hfa] 2 puff INHALATION RT-QID Gabapentin [Neurontin] 300 mg PO BID Metoprolol Tartrate 25 mg PO BID Albuterol Inhaler [Ventolin Hfa Inhaler] 2 puff INHALATION RT-QID PRN PRN Reason: Cough metFORMIN HCL 1,000 mg PO BID Insulin Glargine,Hum.rec.anlog [Lantus Solostar] 42 unit SQ DAILY Discharge Medication List Simvastatin [Zocor] 20 mg PO HS 07/05/16 [History] Testosterone Cypionate [Depo-Testosterone] 300 mg IM Q30D 07/05/16 [History] Levothyroxine Sodium [Synthroid] 50 mcg PO DAILY 07/27/16 [History] Albuterol Inhaler [Ventolin Hfa Inhaler] 2 puff INHALATION RT-QID PRN 05/07/17 [ History] Gabapentin [Neurontin] 300 mg PO BID 05/07/17 [History] Ipratropium [place] [Atrovent Hfa] 2 puff INHALATION RT-QID 05/07/17 [History] Metoprolol Tartrate 25 mg PO BID 05/07/17 [History] metFORMIN HCL 1,000 mg PO BID 07/16/17 [History] Insulin Glargine,Hum.rec.anlog [Lantus Solostar] 42 unit SQ DAILY 03/27/18 [ History] Follow up Appointment(s)/Referral(s): Renee Ashley MD [Primary Care Provider] - 1 Week Edward Echeverria DO [STAFF PHYSICIAN] - As Needed ([facility] 3rd floor[facility] Patient Instructions/Handouts: Pancreatitis (DC) Activity/Diet/Wound Care/Special Instructions: Cardiac, diabetic diet. Activity as tolerated. NO smoking advised, cessation information given. NO alcohol use. References/resource info given. Discharge Disposition: Left Against Medical Advice
== END 2018-03-30 08:30 | disposition left against medical advice (07) | DRG 439 ==
LOC: EC 18:25 → 6SEL 21:58 → 4MS4W 03-28 09:00
PROVIDERS: ADMIT Hospitalist; ATTEND Hospitalist
DX: K85.20 Alcohol induced acute pancreatitis without necrosis or infection (principal); E87.1 Hypo-osmolality and hyponatremia; E87.2 Acidosis; F10.239 Alcohol dependence with withdrawal, unspecified; K86.1 Other chronic pancreatitis; E03.9 Hypothyroidism, unspecified; E11.41 Type 2 diabetes mellitus with diabetic mononeuropathy; E78.5 Hyperlipidemia, unspecified; E86.0 Dehydration; E86.1 Hypovolemia; E87.70 Fluid overload, unspecified; F17.200 Nicotine dependence, unspecified, uncomplicated; F41.0 Panic disorder [episodic paroxysmal anxiety]; I10 Essential (primary) hypertension; K29.20 Alcoholic gastritis without bleeding; K70.10 Alcoholic hepatitis without ascites; N40.0 Benign prostatic hyperplasia without lower urinary tract symptoms; Z79.4 Long term (current) use of insulin; Z82.49 Family history of ischemic heart disease and other diseases of the circulatory system; Z90.5 Acquired absence of kidney; Z90.81 Acquired absence of spleen; Z98.1 Arthrodesis status; Z79.890 Hormone replacement therapy; Z79.899 Other long term (current) drug therapy; Z90.49 Acquired absence of other specified parts of digestive tract; F40.240 Claustrophobia; I95.9 Hypotension, unspecified
CPT/HCPCS: 36415; 71046; 74177; 80053; 80306; 80320; 81003; 82150; 82550; 82553; 83036; 83605; 83690; 83735; 84484; 85025; 85027; 93005; 94640; 96361; 96372; 96374; 96375; 96376; 99285

== ENCOUNTER 2018-05-27 10:26 | Inpatient (IN) | payer OTHER ==
[2018-05-27] MEDS ORDERED: KETOROLAC 60 MG/2 ML VIAL IM STA (11:17)
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
[2018-05-27] MEDS ORDERED: LORazepam 2 MG/ML INJ IM STA (12:19)
[2018-05-27] MEDS ORDERED: ZIPRASIDONE 20 MG VIAL IM STA (12:19)
--- NOTE | 2018-05-27 12:37 | CT ---
EXAMINATION TYPE: CT cervical spine wo con DATE OF EXAM: 05/27/2018 COMPARISON: None HISTORY: neck pain that radiates down his rt arm CT DLP: 263.[address] of the cervical spine was performed with bone and soft tissue window settings submitted . Coronal and sagittal reconstruction is obtained C2-3: Within normal limits C3-4: Moderate degenerative disc space narrowing. Ventral spondylosis. Mild posterior disc bulge with out herniation or central stenosis. Degenerative change cervical apophyseal joints resulting in mild right foraminal encroachment. C4-5: Moderate degenerative disc space narrowing. Moderate circumferential disc bulge greatest speech therapy teacher iorly. Effacement of the ventral thecal sac with mild central stenosis suspected. Bilateral foraminal encroachment. C5-6: Changes of anterior cervical discectomy and fusion. Alignment is anatomic. Anterior fixation pl ate and screws in place. No evidence for recurrent or residual disease. Posterior hypertrophic change effaces the ventral thecal sac. There is bilateral foraminal encroachment. C6-7: Moderate degenerative disc space narrowing. Large ventral spurring. Circumferential disc bulge greatest posteriorly. Mild effacement ventral thecal sac without stenosis. Mild bilateral foraminal e ncroachment. C7-T1: Within normal limits Reversal of the normal cervical lordosis likely related to muscle spasticity. No evidence for fractur e or subluxation. IMPRESSION: 1. Multilevel degenerative disc disease. 2. Mild central stenosis suggested at C4-5. 3. Foraminal encroachment as outlined above.
[2018-05-27] MEDS ORDERED: SODIUM CHLORIDE 0.9% 1,000 ML IV ONE (13:18)
[2018-05-27] MEDS ORDERED: THIAMINE 100 MG/ML 2 ML VIAL IM STA (13:19)
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
[2018-05-27] MEDS: LORazepam 2 MG/ML INJ IV PRN ×5 (17:28→23:36)
[2018-05-27] MEDS: methylPREDNISolone SOD SUCCI 125 MG/2 ML VIAL IV SCH (17:28)
--- NOTE | 2018-05-27 17:38 | MR ---
EXAMINATION TYPE: MR cervical spine wo con DATE OF EXAM: 05/27/2018 COMPARISON: MR cervical spine dated 02/06/2017 HISTORY: Upper extremity radiculopathy and shoulder pain TECHNIQUE: Multiplanar, multisequence images of the cervical spine were acquired. There is motion on the exam. Anterior cervical fusion and discectomy changes are again noted at C5-6. No gross disc herniation. Di fficult to exclude cord signal abnormality. No evident spinal stenosis. IMPRESSION: Exam is limited.
[2018-05-27 17:55] LABS: Amphetamine Screen,Urine Not Detected (NotDetected); Benzodiazepines Screen,Urine Detected (NotDetected); Cocaine Screen,Urine Not Detected (NotDetected); Methadone Screen, Urine Not Detected (NotDetected); Opiate Screen,Urine Detected (NotDetected); Phencyclidine Screen,Urine Not Detected (NotDetected); Tricyclic Antidepressant,Urine Not Detected (NotDetected); Urn Cannabinoid Scrn Detected (NotDetected)
[2018-05-27 17:56] LABS: Barbiturate Screen,Urine Not Detected (NotDetected); Oxycodone Screen, Urine Not Detected (NotDetected)
[2018-05-27] MEDS: THIAMINE 100 MG TAB PO SCH (19:30)
[2018-05-27 20:47] LABS: Glucose,Whole Blood 450 mg/dL (75-99)
[2018-05-27] MEDS: HALOPERIDOL LACTATE 5 MG/ML 1 ML VIAL IM PRN (20:49)
[2018-05-27] MEDS: NICOTINE 21MG/24HR PATCH TRANSDERM SCH (20:49)
[2018-05-27] MEDS: oxyCODONE-APAP 5-325MG 1 EACH TAB PO PRN (20:50)
[2018-05-27] MEDS: INSULIN DETEMIR 100 UNIT/ML 10 ML VIAL SQ SCH (21:50)
[2018-05-27] MEDS: INSULIN ASPART 100 UNIT/ML 1 ML 10 ML VIAL SQ SCH (21:51)
[2018-05-27] MEDS ORDERED: TEMAZEPAM 15 MG CAP PO PRN (21:52)
[2018-05-27] MEDS: METOPROLOL TARTRATE 25 MG TAB PO SCH (21:53)
[2018-05-27] MEDS: ATORVASTATIN 10 MG TAB PO SCH (21:53)
[2018-05-27] MEDS: GABAPENTIN 300 MG CAP PO SCH (21:53)
[2018-05-27 22:24] LABS: Basophils % (A) 0 %; Eosinophils # (A) 0.1 k/uL (0-0.7); Eosinophils % (A) 2 %; HCT 44.4 % (39.0-53.0); HGB 14.5 gm/dL (13.0-17.5); Lymphocytes # (A) 0.4 k/uL (1.0-4.8); Lymphocytes % (A) 6 %; MCH 35.4 pg (25.0-35.0); MCHC 32.7 g/dL (31.0-37.0); MCV 108.1 fL (80.0-100.0); Macrocytosis Moderate; Mean Platelet Volume 6.8; Monocytes # (A) 0.1 k/uL (0-1.0); Monocytes % (A) 1 %; Neutrophils # (A) 5.3 k/uL (1.3-7.7); Neutrophils % (A) 90 %; Platelet Count 297 k/uL (150-450); RBC 4.11 m/uL (4.30-5.90); RDW 12.6 % (11.5-15.5); WBC 5.9 k/uL (3.8-10.6)
--- NOTE | 2018-05-27 22:33 | HP ---
HISTORY AND PHYSICAL CHIEF COMPLAINTS: Suicidal ideations and right shoulder pain. HISTORY OF PRESENT ILLNESS: This 37-year-old gentleman with a past medical history of multiple medical problems, including GERD, diabetes mellitus, type 2, hypertension, hyperlipidemia, history of seizure disorder, history of prostate disorder, pancreatitis, history of depression, history of alcoholism, being followed by Dr. Ashley in the outpatient setting, also had anxiety, bipolar depression, panic disorder. The patient apparently had a significant history of alcohol also. The patient had right shoulder pain and went to [facility] for shoulder pain, and while in the office the patient apparently threatened to kill himself and was sent to [facility] Emergency Room and was admitted for further evaluation and treatment. The patient reports severe depression. There is no history of any fever, rigor or chills, no history of headache, loss of consciousness, seizures. PAST MEDICAL HISTORY: 1. Diabetes mellitus, type 2. 2. GERD. 3. Hypertension. 4. Hyperlipidemia. 5. History of DJD. 6. History of back surgery. 7. Anxiety. 8. Bipolar depression. MEDICATIONS: Medications prior to admission include: 1. Oxycodone 10 mg t.i.d. p.r.n. 2. Metformin 1000 mg p.o. b.i.d. 3. Depo-testosterone 300 mg IM q.30 days. 4. Zocor 20 mg at bedtime. 5. Metoprolol 25 mg p.o. b.i.d. 6. Synthroid 50 mcg p.o. daily. 7. Atrovent 2 puffs q.i.d. 8. Lantus 42 units subcutaneously daily. 9. Neurontin 300 mg p.o. b.i.d. ALLERGIES: NONE. FAMILY HISTORY: History of hyperlipidemia, hypertension, myocardial infarction. SOCIAL HISTORY: History of alcohol, THC, smoking. REVIEW OF SYSTEMS: ENT: No diminished hearing. No diminished vision. CARDIOVASCULAR SYSTEM: No angina, palpitations. RESPIRATORY SYSTEM: No cough, hemoptysis. GI: As mentioned earlier. : No dysuria or retention. NERVOUS SYSTEM: No numbness, weakness. ALLERGY/IMMUNOLOGY: No asthma, hayfever. MUSCULOSKELETAL: As mentioned earlier. HEMATOLOGY/ONCOLOGY: No history of anemia. ENDOCRINE: As mentioned earlier. CONSTITUTIONAL: As mentioned earlier. DERMATOLOGY: Negative. RHEUMATOLOGY: Negative. PSYCHIATRY: As mentioned earlier. PHYSICAL EXAMINATION: Patient is alert and oriented x2. Pulse is 110, blood pressure 110/89, respiration 20, temperature 98.0, pulse ox 99% on room air. HEENT: Conjunctivae normal. Oral mucosa moist. NECK: No jugular venous distention. No carotid bruit. No lymph node enlargement. CARDIOVASCULAR SYSTEM: S1, S2 muffled. RESPIRATORY SYSTEM: Breath sounds diminished at the bases. No rhonchi. No crackles. ABDOMEN: Soft, nontender. No mass palpable. LEGS: No edema. No swelling. NERVOUS SYSTEM: Higher functions as mentioned earlier. Moves all 4 limbs. No focal deficit. LYMPHATICS: No lymph node palpable in neck, axillae or groin. SKIN: No ulcer, rash, bleeding. JOINTS: Movement of the right shoulder joint was severely painful. ASSESSMENT: 1. Severe right shoulder pain. Rule out DJD. 2. Diabetes mellitus, type 1, uncontrolled. 3. Suicidal ideation and severe depression. 4. History of ethanol. 5. Polysubstance abuse. 6. History of gastroesophageal reflux disease. 7. Hypertension. 8. Hyperlipidemia. 9. Degenerative joint disease. 10.History of pneumonia. 11.History of seizure disorder. 12.History of pancreatitis. 13.History of alcoholism. 14.History of splenectomy. 15.History of nephrectomy. 16.History of back surgery, degenerative joint disease. 17.Anxiety, bipolar depression, panic disorder. RECOMMENDATIONS AND DISCUSSION: In this 37-year-old gentleman who presented with multiple complex medical issues, at this time we will monitor the patient closely, continue the current medications, continue symptomatic treatment. I recommend [facility] protocol for alcohol withdrawal. I would also recommend pain management for right shoulder pain, orthopedic and psychiatric evaluations. Resume the home medications. I would also recommend UA and urine for serum ketones and if it is positive, we will recommend DKA protocol. Otherwise, insulin drip may be initiated until the sugars are 200. Once the sugars are less than 200, Lantus and the usual dose of insulin may be continued. Once again, overall prognosis is extremely guarded because of multiple complex medical issues. Further recommendations to follow. See orders for details. MMODL / IJN: [id number] /
[2018-05-27 22:40] LABS: ALT 36 U/L (21-72); AST 23 U/L (17-59); Albumin 3.6 g/dL (3.5-5.0); Alkaline Phosphatase 57 U/L (38-126); Anion Gap 11 mmol/L; Blood Urea Nitrogen 24 mg/dL (9-20); Calcium 8.4 mg/dL (8.4-10.2); Carbon Dioxide 23 mmol/L (22-30); Chloride 106 mmol/L (98-107); Glucose 389 mg/dL (74-99); Potassium 4.4 mmol/L (3.5-5.1); Sodium 140 mmol/L (137-145); Total Bilirubin 0.3 mg/dL (0.2-1.3); Total Protein 5.9 g/dL (6.3-8.2)
[2018-05-27] MEDS: HYDROmorphone 1 MG/ML 1 ML SYRINGE IM PRN (23:29)
[2018-05-28] MEDS: oxyCODONE-APAP 5-325MG 1 EACH TAB PO PRN ×4 (00:30→20:11)
[2018-05-28] MEDS: HALOPERIDOL LACTATE 5 MG/ML 1 ML VIAL IM PRN (00:31)
[2018-05-28 00:44] LABS: Glucose,Whole Blood 135 mg/dL (75-99)
[2018-05-28] MEDS: methylPREDNISolone SOD SUCCI 125 MG/2 ML VIAL IV SCH ×3 (01:41→15:16)
[2018-05-28] MEDS: HYDROmorphone 1 MG/ML 1 ML SYRINGE IM PRN ×3 (03:54→15:20)
[2018-05-28] MEDS: LEVOTHYROXINE 50 MCG TAB PO SCH (05:43)
[2018-05-28 06:11] LABS: Appearance,Urine Clear (Clear); Bilirubin,Urine Negative (Negative); Blood,Urine Negative (Negative); Color,Urine Yellow; Glucose,Urine (UA) 4+ (Negative); Ketones,Urine Negative (Negative); Leukocyte Esterase,Urine Negative (Negative); Nitrite,Urine Negative (Negative); PH, Urine 6.5 (5.0-8.0); Protein,Urine Negative (Negative); Urobilinogen,Urine <2.0 mg/dL (<2.0)
[2018-05-28 07:12] LABS: Glucose,Whole Blood 224 mg/dL (75-99)
[2018-05-28] MEDS: LORazepam 2 MG/ML INJ IV PRN ×3 (07:20→21:20)
[2018-05-28] MEDS: INSULIN ASPART 100 UNIT/ML 1 ML 10 ML VIAL SQ SCH ×7 (07:23→21:24)
[2018-05-28] MEDS: GABAPENTIN 300 MG CAP PO SCH ×3 (07:27→21:24)
[2018-05-28] MEDS: HEPARIN SODIUM,PORCINE 5,000 UNIT/ML 1 ML VIAL SQ SCH ×2 (07:27→20:11)
[2018-05-28] MEDS: NICOTINE 21MG/24HR PATCH TRANSDERM SCH (07:27)
[2018-05-28] MEDS: METOPROLOL TARTRATE 25 MG TAB PO SCH ×2 (07:27→21:24)
[2018-05-28] MEDS: THIAMINE 100 MG TAB PO SCH ×2 (07:28→18:06)
[2018-05-28] MEDS: IPRATROPIUM 0.5 MG/2.5 ML NEBU INHALATION SCH ×4 (07:37→21:13)
[2018-05-28 10:07] LABS: Basophils % (A) 0 %; Eosinophils % (A) 0 %; HCT 40.5 % (39.0-53.0); HGB 13.5 gm/dL (13.0-17.5); Lymphocytes # (A) 0.7 k/uL (1.0-4.8); Lymphocytes % (A) 8 %; MCH 35.3 pg (25.0-35.0); MCHC 33.3 g/dL (31.0-37.0); MCV 106.2 fL (80.0-100.0); Macrocytosis Slight; Mean Platelet Volume 6.7; Monocytes # (A) 0.3 k/uL (0-1.0); Monocytes % (A) 3 %; Neutrophils # (A) 7.3 k/uL (1.3-7.7); Neutrophils % (A) 88 %; Platelet Count 316 k/uL (150-450); RBC 3.82 m/uL (4.30-5.90); RDW 12.4 % (11.5-15.5); WBC 8.3 k/uL (3.8-10.6)
[2018-05-28 10:34] LABS: Anion Gap 9 mmol/L; Blood Urea Nitrogen 21 mg/dL (9-20); Calcium 8.5 mg/dL (8.4-10.2); Carbon Dioxide 23 mmol/L (22-30); Chloride 105 mmol/L (98-107); Glucose 145 mg/dL (74-99); Potassium 4.5 mmol/L (3.5-5.1); Sodium 137 mmol/L (137-145)
--- NOTE | 2018-05-28 11:20 | MR ---
EXAMINATION TYPE: MR cervical spine wo con DATE OF EXAM: 05/28/2018 COMPARISON: Previous dated 05/27/2018, CT cervical spine 05/27/2018 and MR cervical spine 05/16/2017 HISTORY: Right upper extremity radiculopathy/weakness TECHNIQUE: Multiplanar, multisequence images of the cervical spine were acquired. C2-C3: No evidence for degenerative disc disease. No disc bulge/herniation or protrusion. No Canal stenosis. Foramina are patent bilaterally. C3-C4: Bilateral foraminal encroachment is present as on prior exam with lateral extension endplate d isc complex, posterior broad-based disc bulge causes slight anterior mass effect on the thecal sac, n o significant foraminal encroachment. C4-C5: Posterior broad-based disc bulge causes anterior mass effect on the thecal sac, mild central c anal stenosis, lateral extension of endplate disc complex results in bilateral foraminal encroachment . C5-C6: Bilateral foraminal encroachment is again noted due to lateral extension of endplate disc comp ibis, there is no disc herniation or significant spinal stenosis. C6-C7: No evident disc herniation or significant foraminal encroachment, no spinal stenosis. C7-T1: No evidence for degenerative disc disease. No disc bulge/herniation or protrusion. No Canal stenosis. Foramina are patent bilaterally. Cervical segments are intact. There is normal alignment. Cervical spinal cord is of normal signal. Craniovertebral junction relationships are within normal limits. Hypertrophic anterior osteophytes are again noted especially at C6-7, C3-4 and C4-5, patient is post anterior cervical fusion and disce ctomy at C5-6 susceptibility artifact is present due to patient's fixation hardware. Endplate discoge bjorn marrow signal changes are present. IMPRESSION: Postop changes, multilevel degenerative disc disease and foraminal encroachment as described.
[2018-05-28 11:38] LABS: Glucose,Whole Blood 127 mg/dL (75-99)
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
--- NOTE | 2018-05-28 15:35 | XR ---
EXAMINATION TYPE: XR shoulder complete RT DATE OF EXAM: 05/28/2018 CLINICAL HISTORY: Right shoulder pain with limited range of motion TECHNIQUE: Three views of the right shoulder are obtained. COMPARISON: None. FINDINGS: There is no acute fracture/dislocation evident in the right shoulder. The acromioclavicul ar and glenohumeral joint spaces appear within normal limits. The visualized ribs are intact and unr emarkable. Surgical sutures within the right upper lung and right midlung are incidentally noted IMPRESSION: There is no acute fracture or dislocation in the right shoulder. MRI could assess the ro tator cuff if clinically indicated.
--- NOTE | 2018-05-28 17:22 | PN ---
PROGRESS NOTE DATE OF SERVICE: 05/28/2018 This 37-year-old gentleman admitted with right shoulder pain which is thought to be neurogenic in origin. Interventional Pain Management has seen the patient and recommended medication alteration. Surgery is also being considered at this time. MMODL / IJN: [id number] /
[2018-05-28 17:28] LABS: Glucose,Whole Blood 278 mg/dL (75-99)
[2018-05-28] MEDS ORDERED: hydrALAZINE HCL 20 MG/ML 1 ML VIAL IVP PRN (19:18)
[2018-05-28] MEDS ORDERED: cloNIDine HCL 0.1 MG TAB PO PRN (19:18)
[2018-05-28] MEDS: HYDROmorphone 1 MG/ML 1 ML SYRINGE IVP PRN (19:25)
[2018-05-28 19:56] LABS: Glucose,Whole Blood 249 mg/dL (75-99)
[2018-05-28] MEDS: ATORVASTATIN 10 MG TAB PO SCH (21:23)
[2018-05-28] MEDS: INSULIN DETEMIR 100 UNIT/ML 10 ML VIAL SQ SCH (21:24)
[2018-05-28] MEDS: cloNIDine HCL 0.2 MG TAB PO SCH (21:24)
--- NOTE | 2018-05-28 21:28 | PN ---
PROGRESS NOTE DATE OF SERVICE: 05/28/2018 This 37-year-old gentleman admitted with severe right shoulder pain also being evaluated by Dr. Bell for possible surgery. No chest pain. No palpitations. No fever. The patient also has significant history of diabetes mellitus as well as ETOH also. No chest pain. No palpitations. No fever. EXAM: Alert and oriented times three. Pulse 67, blood pressure 162/101, respiration 18, temperature 98 degrees, pulse ox 94% on room air. HEENT: Conjunctivae normal. Oral mucosa moist. Neck is no jugular venous distention. No lymph node enlargement. Cardiovascular system: S1, S2. RESPIRATORY: Breath sounds diminished in the bases. No rhonchi. No crackles. Abdomen is soft, nontender. Legs are no edema. No swelling. Examination of the right shoulder joint slightly painful. Some wasting was also noted. LABS: WBC 8.3, hemoglobin 13.5. Accu-Cheks noted. ASSESSMENT: 1. Severe right shoulder pain. 2. Degenerative joint disease. 3. Rule out cervical spine stenosis and radiculopathy. 4. Diabetes mellitus type 2 uncontrolled. 5. Hypertension. 6. Suicidal ideations, severe depression. 7. History of ETOH. 8. Polysubstance abuse. 9. History of gastroesophageal reflux disease. 10.Hypertension. 11.Hyperlipidemia. 12.History of degenerative joint disease. 13.History of pneumonia. 14.Seizure disorder. 15.History of pancreatitis. 16.History of alcoholism. 17.History of splenectomy. 18.History of nephrectomy. 19.History of back surgery, degenerative joint disease. 20.Anxiety, bipolar depression, panic disorder. RECOMMENDATIONS AND DISCUSSION: Recommend to continue current medications, management and symptomatic treatment. Continue with current medications. Closely followed with Orthopedic surgery. Pain management consultation has been noted. Otherwise, continue with steroids. Monitor blood sugars closely and I would also recommend add clonidine to the current regimen. Guarded prognosis. Further recommendations to follow. See orders for details. MMODL / IJN: [id number] /
[2018-05-29] MEDS: HYDROmorphone 1 MG/ML 1 ML SYRINGE IVP PRN ×5 (00:30→23:01)
[2018-05-29] MEDS: methylPREDNISolone SOD SUCCI 125 MG/2 ML VIAL IV SCH ×3 (00:30→17:03)
[2018-05-29] MEDS: oxyCODONE-APAP 5-325MG 1 EACH TAB PO PRN ×2 (03:55→12:48)
[2018-05-29] MEDS: LEVOTHYROXINE 50 MCG TAB PO SCH (06:04)
[2018-05-29 07:09] LABS: Glucose,Whole Blood 140 mg/dL (75-99)
[2018-05-29] MEDS: IPRATROPIUM 0.5 MG/2.5 ML NEBU INHALATION SCH ×4 (07:22→20:47)
[2018-05-29 07:43] LABS: Basophils % (A) 0 %; Eosinophils # (A) 0.1 k/uL (0-0.7); Eosinophils % (A) 1 %; HCT 44.8 % (39.0-53.0); HGB 15.1 gm/dL (13.0-17.5); Lymphocytes # (A) 0.6 k/uL (1.0-4.8); Lymphocytes % (A) 6 %; MCH 35.3 pg (25.0-35.0); MCHC 33.6 g/dL (31.0-37.0); MCV 105.1 fL (80.0-100.0); Macrocytosis Slight; Mean Platelet Volume 7.5; Monocytes # (A) 0.4 k/uL (0-1.0); Monocytes % (A) 4 %; Neutrophils # (A) 8.6 k/uL (1.3-7.7); Neutrophils % (A) 89 %; Platelet Count 284 k/uL (150-450); RBC 4.26 m/uL (4.30-5.90); RDW 12.3 % (11.5-15.5); WBC 9.7 k/uL (3.8-10.6)
[2018-05-29 08:07] LABS: Anion Gap 7 mmol/L; Blood Urea Nitrogen 20 mg/dL (9-20); Calcium 8.7 mg/dL (8.4-10.2); Carbon Dioxide 24 mmol/L (22-30); Chloride 105 mmol/L (98-107); Glucose 132 mg/dL (74-99); Sodium 136 mmol/L (137-145)
[2018-05-29] MEDS: INSULIN ASPART 100 UNIT/ML 1 ML 10 ML VIAL SQ SCH ×7 (08:11→22:02)
[2018-05-29] MEDS: NICOTINE 21MG/24HR PATCH TRANSDERM SCH (08:13)
[2018-05-29] MEDS: METOPROLOL TARTRATE 25 MG TAB PO SCH ×2 (08:14→20:42)
[2018-05-29] MEDS: cloNIDine HCL 0.2 MG TAB PO SCH ×3 (08:14→21:45)
[2018-05-29] MEDS: THIAMINE 100 MG TAB PO SCH ×2 (08:14→17:03)
[2018-05-29] MEDS: GABAPENTIN 300 MG CAP PO SCH ×3 (08:15→21:45)
[2018-05-29] MEDS: HEPARIN SODIUM,PORCINE 5,000 UNIT/ML 1 ML VIAL SQ SCH ×2 (08:16→20:42)
[2018-05-29 08:21] LABS: Potassium 4.6 mmol/L (3.5-5.1)
[2018-05-29 11:30] VITALS: BMI 23.6
[2018-05-29 11:35] LABS: Glucose,Whole Blood 178 mg/dL (75-99)
--- NOTE | 2018-05-29 11:59 | P.PN ---
Progress Note - Text Progress Note Date: 05/29/18 The patient is seen and examined today again at bedside. He continues complaining of severe pain in his right shoulder extending toward the posterior shoulder and over the lateral aspect of the shoulder. He has pain with motion but he is able to elevate his arm passively hold it there no he has significant pain radiating from his neck down to his right shoulder. He does not appear to have rotator cuff issues. He is nontender to palpation over the anterior aspect of the shoulder anterior acromion her bicep. There is no swelling or erythema. He's afebrile with stable vital signs At his neck is nontender to palpation posteriorly. He has severe spasm in the right. He has a well-healed incision on the right. He has tattoos around his chest and neck. At his right shoulder is nontender palpation of the anterior acromion or over his deltoid. He has significant spastic type pain and neurologic type pain that shoots over his right shoulder over a C4 distribution. He has weakness over his right shoulder with abduction and flexion. He has about 3 minus out of 5 strength in his right shoulder. 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 There is some disc protrusion at C4 5 with bilateral foraminal encroachment worse on the right and left. The prior plate is intact at C5 6. Assessment and plan Severe right upper extremity radiculopathy with weakness over his right shoulder over a C4 and C5 distribution Right upper extremity weakness Disc protrusion with foraminal stenosis C4 5 History of prior fusion C5 6 Intractable neck and shoulder pain I have discussed this issue with the patient at length and discussed the case with staff. I reviewed the old prior MRIs as well as his new MRI which was obtained. I reviewed the psychiatric evaluation note as well as the pain management note. The patient has significant symptoms and difficulty with coping in terms of his pain but his symptoms do correlate with number of his imaging findings and he has been consistent and his exam with his pain and his weakness over his right shoulder. They do not plan to perform any interventional pain management and recommend surgical intervention. I discussed this with the patient length. Discussed the risk of occasions alternatives and benefits of surgery at length. I discussed the risk of bleeding risk of infection risk and need for further surgery risk of decreased loss of motion loss of function malunion nonunion hardware failure nerve damage hoarseness dysphagia was all explained to the patient at length. Patient is very eager to proceed with surgery. Though I am somewhat hesitant given his difficulty with his coping mechanisms, I do think that he has correlating pain at his right upper extremity with weakness and findings consistent on the MRI at C4 5. I think it is reasonable to proceed with surgical intervention at C4 5 given his extreme symptoms. We will plan for anterior cervical discectomy and fusion at C4 5 is really as possible. We will keep him nothing by mouth and plan for possible surgery this evening. I discussed this with him at length answers questions best my ability and he is agreeable.
[2018-05-29 15:27] LABS: INR 1.1 (<1.2); Prothrombin Time 10.9 sec (9.0-12.0)
[2018-05-29] MEDS ORDERED: ceFAZolin 1,000 MG in DEXTROSE/WATER 1 50ML.BAG IVPB SCH (16:00)
[2018-05-29] MEDS ORDERED: LACTATED RINGERS 1,000 ML IV ONE (16:40)
[2018-05-29] MEDS ORDERED: fentaNYL (PF) 50 MCG/ML 2 ML AMP IVP ONE (16:42)
[2018-05-29] MEDS ORDERED: MIDAZOLAM 2 MG/2 ML VIAL IVP ONE (16:43)
[2018-05-29] MEDS ORDERED: fentaNYL (PF) 50 MCG/ML 2 ML AMP ONE (16:44)
[2018-05-29] MEDS ORDERED: SUCCINYLCHOLINE CHLORIDE 100 MG/5 ML SYR IV ONE (16:44)
[2018-05-29] MEDS ORDERED: MIDAZOLAM 2 MG/2 ML VIAL ONE (16:44)
[2018-05-29] MEDS ORDERED: LIDOCAINE 1% INJ 10MG/ML (20 ML MDV) ONE (16:44)
[2018-05-29] MEDS ORDERED: HYDROmorphone (PF) 1 MG/ML ONE (16:44)
[2018-05-29] MEDS ORDERED: PROPOFOL 10 MG/ML 20 ML VIAL IV ONE (16:44)
[2018-05-29] MEDS ORDERED: ceFAZolin 1,000 MG in SODIUM CHLORIDE 0.9% 1,000 ML IRRIGATION ONE (16:48)
[2018-05-29] MEDS ORDERED: ceFAZolin 1,000 MG/50 ML BAG (PMX) IVPB ONE (17:00)
[2018-05-29] MEDS ORDERED: LIDOCAINE 0.5%-EPI 1:200,000 50 ML VIAL SQ ONE ×2 (17:15)
--- NOTE | 2018-05-29 17:44 | PN ---
PROGRESS NOTE DATE OF SERVICE: 05/29/2018 This 37-year-old gentleman was admitted with severe right shoulder pain. He also had significant cervical DJD. Multilevel disc disease was also noted. Dr. Bell is planning surgery today. No chest pain. No palpitations. No fever. On exam, alert and oriented x3. Pulse is 68, blood pressure 160/91, respiration 22, temperature 98.3, pulse ox 97% on room air. HEENT: Conjunctivae normal. Oral mucosa moist. NECK: No jugular venous distention. No carotid bruit. No lymph node enlargement. CARDIOVASCULAR SYSTEM: S1, S2 muffled. RESPIRATORY SYSTEM: Breath sounds diminished at the bases. No rhonchi. No crackles. ABDOMEN: Soft, non-tender. No mass palpable. LEGS: No edema. No swelling. NERVOUS SYSTEM: No focal deficit. LABS: WBC 9.7, hemoglobin 15.1, sodium 136. ASSESSMENT: 1. Severe cervical degenerative joint disease and shoulder pain. 2. Cervical spine stenosis and radiculopathy. 3. Diabetes mellitus, type 2, uncontrolled. 4. Hypertension. 5. Suicidal ideation and severe depression. 6. History of ethanol. 7. Polysubstance abuse. 8. History of gastroesophageal reflux disease. 9. Hyperlipidemia. 10.History of degenerative joint disease. 11.History of pneumonia. 12.Seizure disorder. 13.History of pancreatitis. 14.History of alcoholism. 15.History of splenectomy. 16.History of nephrectomy. 17.History of back surgery, degenerative joint disease. 18.History of anxiety, bipolar depression, panic disorder. RECOMMENDATIONS AND DISCUSSION: I recommend to continue current medication, continue with the monitoring, symptomatic treatment. Otherwise at this time I would recommend closely follow with Orthopedic Surgery, Dr. Bell. Discussed with Dr. Bell. Prognosis guarded. Continue the rest of the medications. Further recommendations to follow. MMODL / IJN: [id number] /
[2018-05-29] MEDS ORDERED: THROMBIN (BOVINE) 5,000 UNIT VIAL TOPICAL ONE (18:12)
[2018-05-29] MEDS ORDERED: GELATIN SPONGE,ABSORB (LARGE) 1 EACH SPONGE TOPICAL ONE (18:12)
[2018-05-29] MEDS ORDERED: SODIUM CHLORIDE 0.9% 1,000 ML IV SCH (18:30)
[2018-05-29] MEDS ORDERED: BISACODYL 10 MG SUPP RECTAL PRN (18:30)
[2018-05-29] MEDS ORDERED: ONDANSETRON 4 MG/2 ML VIAL IVP PRN (18:30)
[2018-05-29] MEDS ORDERED: HYDROmorphone 1 MG/ML 1 ML SYRINGE IVP PRN (18:30)
[2018-05-29] MEDS ORDERED: BENZOCAINE/MENTHOL LOZENG 1 EACH LOZENGE MUCOUS MEM PRN (18:30)
[2018-05-29] MEDS ORDERED: MAGNESIUM HYDROXIDE 2,400 MG/10 ML CUP PO PRN (18:30)
--- NOTE | 2018-05-29 18:38 | P.OP ---
Date of Procedure: 05/29/18 Preoperative Diagnosis: Herniated nucleus pulposus C4 5, right upper extremity radiculopathy, right upper extremity weakness, history of prior fusion C5 6 with retained hardware Postoperative Diagnosis: Same Anesthesia: GETA Pathology: none sent Condition: stable Disposition: PACU Description of Procedure: BRIEF OPERATIVE NOTE Preoperative Diagnosis:Herniated nucleus pulposus C4 5, right upper extremity radiculopathy, right upper extremity weakness, history of prior fusion C5 6 with retained hardware Postoperative Diagnosis: Same, plus findings of solid fusion C5 6 Procedure: Removal of hardware C5 6, deep Exploration of fusion C5 6 with findings of solid fusion Anterior cervical decompression with discectomy and fusion C4 5 Placement of interbody graft C4 5 Application of anterior cervical plate C4 5 Surgeon: Dr. Bell Coding Educator: Fritz Jackson is present throughout the entire the case persistence during positioning, dissection, exposure, visualization, and all crucial elements of the case as well as closure. Anesthesia: General anesthesia per Dr. Hendrickson Estimated blood loss: Approximately 50 mL Complications: None apparent Components implanted: We implanted a new K2M [place] anterior cervical plate with 4 screws at C4 5 had removed his prior anterior so we'll plate and 4 screws at C5 6. Disposition: To recovery room in good stable condition. OPERATIVE INDICATIONS The patient has had severe incapacitating issues in their neck and upper extremities. He been having worsening of his pain in his neck and right shoulder and it actually lost his job due to his symptoms and pain. He has been having great difficulty with any sort of regular activities and was somewhat suicidal due to his severe pain. He was admitted to the hospital evaluated with medicine as well as with psychiatry. He was found to have his herniation at C4 5 with right upper extremity radiculopathy and weakness. He has a great deal of distal tooth coping with his pain and issues. He is not having any benefit despite aggressive conservative care. Interventional pain management did not feel that they would be of benefit for him and felt that surgical intervention would be reasonable for him. The long discussion with patient in regards to various treatment options ranging from conservative treatment to possibly surgical intervention. The patient has been through conservative treatment. We discussed various treatment options including surgery, and the patient wishes to proceed with surgery We discussed the risk, patient's alternatives and benefits of surgery including but not limited to, risk of bleeding risk of infection, risk of need for further surgery, risk of decreased, loss of motion, muscle function, malunion nonunion, hardware failure , nerve damage, paralysis, heart attack, and . OPERATIVE SUMMARY After discussing all the risks, patient alternatives and benefits at length, the patient elected to proceed with surgical intervention, signed informed consent, and presented for their procedure. The patient was seen and examined in the preoperative holding area and the surgical site was marked. The patient was given antibiotics and brought to the operating room. The patient was positioned on the operating room table in a supine position being careful to pad any bony prominences and pressure points. The patient was sedated and intubated by anesthesia in standard fashion. Once the airway and C- spine were stabilized the patient's arms were padded and tucked at her side, with her shoulders gently taped. The head was placed in a donut pad with the neck in good neutral alignment and position. We were careful to maintain the patient's cervical spine and good neutral alignment and position throughout. The patient was prepped and draped in a normal standard fashion. An appropriate timeout and keystone protocol performed. We were able to proceed with the surgery. The local wound area was infiltrated with local anesthetic. An incision was made transversely approximately 2-1/2 cm over the appropriate levels above his prior incision at the level of C4 5. Dissection was taken down subcutaneously to the level of the platysma which was split in line with its fibers. Dissection was taken with a carotid approach, with the trachea and esophagus medial and the carotid sheath laterally. We dissected down to the anterior surface of the vertebral bodies. I was able to visualize the plate at C5 6 and expose the plate and screws. There is osteophytes grown up over C4 5 and C5 6 and these osteophytes removed. Intraoperative x-ray was taken which showed a marker at the appropriate level. With the appropriate screwdriver was able to remove the locking device and remove the screws in total 4 at C5 and C6. I was able to pry up the plate and remove the plate in total at C5 6. As able to explore the area and there was findings of solid bony fusion from C5- C6. With the hardware removed and the C4 5 level exposed, we were able to proceed with discectomy at the appropriate levels. All of the operative levels were exposed appropriately. The patient had all their twitches back, and there was no evidence of recurrent laryngeal issue. The wound was copiously irrigated and suctioned dry as had been done periodically throughout the case. At the appropriate level/levels of C4 5, I established an annulotomy with an 11 blade scalpel. A discectomy was performed with a combination of pituitary rongeurs, curettes, a high-speed bur, and [place] rongeurs. There is very large anterior osteophytes which were removed and obvious degenerative disc and disc protrusion with herniation. The posterior longitudinal ligament was taken down as were any posterior osteophytes. This gave good central and bilateral foraminal decompression. There is no evidence of any dural tear or leak. The endplates were prepared with a high-speed bur. With the endplates in good parallel position, I was able to size for the appropriate size interbody graft. The wound was irrigated and suctioned dry the graft was prepared and malleted into position. It had good alignment and position with the anterior surface flush with the anterior surface of the vertebral bodies. With the grafts intact, I was able to measure and contour and appropriate sized plate. The plate was positioned at the midline over the appropriate levels of C4 5. Screw holes were established with a hand drill and drill guide. Screws were placed in good alignment and position with excellent bony purchase. They were seated under the locking device. The construct was checked and found to be stable. Intraoperative x-ray was taken which showed good alignment and position of the implants at the appropriate levels at C4 5. There was no evidence of any dural tear or leak. Good hemostasis was maintained. The wound was copiously irrigated and suctioned dry as had been done periodically throughout the case. The platysma was closed with absorbable suture. The subcutaneous tissue was closed. The subcuticular tissue was closed with absorbable suture. The wound was cleaned and dried and dressed appropriately. A soft cervical collar was placed appropriately. The patient was woken up by anesthesia, extubated, transferred back gently to their hospital bed and brought to the recovery room in good stable condition. The patient will be admitted to the hospital for appropriate postoperative care , medical management and monitoring. We will continue to follow them closely about the postoperative course.
[2018-05-29] MEDS ORDERED: HYDROmorphone 1 MG/ML 1 ML SYRINGE IVP ONE ×4 (18:54→19:18)
[2018-05-29 20:23] LABS: Glucose,Whole Blood 262 mg/dL (75-99)
[2018-05-29] MEDS: ATORVASTATIN 10 MG TAB PO SCH (20:42)
[2018-05-29] MEDS: metFORMIN 500 MG TAB PO SCH (21:44)
[2018-05-29] MEDS: oxyCODONE-APAP 10-325MG 1 EACH TAB PO PRN (21:44)
[2018-05-29] MEDS ORDERED: INSULIN ASPART 100 UNIT/ML 1 ML 10 ML VIAL SQ ONE (21:54)
[2018-05-29] MEDS ORDERED: INSULIN DETEMIR 100 UNIT/ML 10 ML VIAL SQ SCH (22:15)
[2018-05-30] MEDS: methylPREDNISolone SOD SUCCI 125 MG/2 ML VIAL IV SCH ×2 (00:03→07:54)
[2018-05-30] MEDS: ceFAZolin IN SWFI 2 GM/20 ML SYRINGE IVP SCH ×2 (00:04→09:56)
[2018-05-30] MEDS: HYDROmorphone 1 MG/ML 1 ML SYRINGE IVP PRN ×2 (03:02→07:49)
[2018-05-30] MEDS: oxyCODONE-APAP 10-325MG 1 EACH TAB PO PRN ×2 (03:52→09:58)
[2018-05-30 05:42] VITALS: BP 154/106; RESP 16; TEMP 98
[2018-05-30] MEDS: LEVOTHYROXINE 50 MCG TAB PO SCH (05:42)
[2018-05-30 07:03] LABS: Glucose,Whole Blood 359 mg/dL (75-99)
[2018-05-30 07:39] LABS: Basophils % (A) 0 %; Eosinophils # (A) 0.1 k/uL (0-0.7); Eosinophils % (A) 1 %; HCT 45.5 % (39.0-53.0); HGB 14.4 gm/dL (13.0-17.5); Lymphocytes # (A) 0.8 k/uL (1.0-4.8); Lymphocytes % (A) 6 %; MCH 34.3 pg (25.0-35.0); MCHC 31.6 g/dL (31.0-37.0); MCV 108.6 fL (80.0-100.0); Macrocytosis Moderate; Mean Platelet Volume 7.8; Monocytes # (A) 0.4 k/uL (0-1.0); Monocytes % (A) 3 %; Neutrophils # (A) 12.9 k/uL (1.3-7.7); Neutrophils % (A) 91 %; Platelet Count 302 k/uL (150-450); RBC 4.19 m/uL (4.30-5.90); RDW 12.4 % (11.5-15.5); WBC 14.2 k/uL (3.8-10.6)
[2018-05-30] MEDS: INSULIN ASPART 100 UNIT/ML 1 ML 10 ML VIAL SQ SCH ×2 (07:47→07:48)
--- NOTE | 2018-05-30 07:47 | FL ---
Fluoroscopy History: Cervical Fusion Cervical Fusion. 1.0 secs of fluoro. 2 images scanned.
[2018-05-30 07:50] LABS: Anion Gap 7 mmol/L; Blood Urea Nitrogen 24 mg/dL (9-20); Calcium 8.5 mg/dL (8.4-10.2); Carbon Dioxide 29 mmol/L (22-30); Chloride 97 mmol/L (98-107); Glucose 264 mg/dL (74-99); Potassium 4.5 mmol/L (3.5-5.1); Sodium 133 mmol/L (137-145)
[2018-05-30] MEDS: cloNIDine HCL 0.2 MG TAB PO SCH (07:56)
[2018-05-30] MEDS: HEPARIN SODIUM,PORCINE 5,000 UNIT/ML 1 ML VIAL SQ SCH (07:57)
[2018-05-30] MEDS: GABAPENTIN 300 MG CAP PO SCH (07:57)
[2018-05-30] MEDS: metFORMIN 500 MG TAB PO SCH (07:58)
[2018-05-30] MEDS: METOPROLOL TARTRATE 25 MG TAB PO SCH (07:58)
[2018-05-30] MEDS: NICOTINE 21MG/24HR PATCH TRANSDERM SCH (07:58)
[2018-05-30] MEDS: IPRATROPIUM 0.5 MG/2.5 ML NEBU INHALATION SCH (08:33)
[2018-05-30 08:36] VITALS: PULSE 72
[2018-05-30] MEDS ORDERED: INSULIN DETEMIR 100 UNIT/ML 10 ML VIAL SQ SCH ×2 (09:00)
--- NOTE | 2018-05-30 09:53 | P.DS ---
Providers Date of admission: 05/27/18 13:18 Attending physician: Inna Banda Consults: 05/27/18 13:18 Consult Physician Urgent Consulting Provider: Larry Potter Consult Reason/Comments: Suicidal ideations Do you want consulting provider notified?: Yes Consult Physician Urgent Consulting Provider: Charlene Bell Consult Reason/Comments: Shoulder pain Do you want consulting provider notified?: Yes 05/27/18 15:04 Consult Physician Urgent Consulting Provider: Ayanna Borges Consult Reason/Comments: Right upper extremity radicular pain and pain management and possible FIDEL, Do you want consulting provider notified?: Yes Primary care physician: Gabi Velazquez [facility] Course: The patient presented on the day of admission for his intractable pain at his neck and right shoulder and suicidal ideation. He was severely intoxicated. He was initially on watch but after having valuation with medicine and psychiatry to watch was discontinued. He was in desperate pain due to his right neck and shoulder pain. He underwent MRI was found have significant radiculopathy to correlated with his herniated disc at C4 5. After extensive discussion we went to the operating room for surgical intervention as per his operative note. Today's postoperative day 1 and he feels significantly better. His arm is doing better and his symptoms have improved greatly. He is taking much less pain medicine. He denies any sort of ideas of suicidal issues Physical Exam The incision site is clean dry and intact. There is no erythema no drainage. There is no purulence no evidence of infection. His neck is soft and supple with minimal swelling. Abdomen soft and nontender. Chest has good excursion with deep inspiration and expiration. The patient has active and passive range of motion intact at the upper and lower extremities. There is no acute change in neurologic status. He is moving his arm without significant pain he is complaining of significantly less pain at his shoulder. There is still some diffuse atrophy and weakness. Hospital Course Postoperative day #1 status post anterior cervical discectomy and decompression and fusion at C4 5 for his herniated nucleus pulposis with right upper extremity radiculopathy and weakness, also with removal of hardware C5 6. The patient has been making good progress postoperatively. He is very happy with his improvement in his right arm thus far and is comfortable and mobilizing in his room and into the hallways. They have completed the prophylactic antibiotics without any signs or symptoms of infection. The patient has been able to advance their diet, and is tolerating diet adequately. The pain was initially controlled with IV medications and is now controlled appropriately with oral medications. The patient has been able to increase their mobilization. The patient has progressed appropriately. I think they are in good stable condition for discharge today. They will be sent home with appropriate prescriptions. He was taking Percocet prior but we will see if he is able tolerate [place]. I answered their questions to the best of my ability in a language that they can understand and they are agreeable with the plan. They will follow up as directed in approximately 2 weeks or sooner if he is having problems. Patient Condition at Discharge: Fair Plan - Discharge Summary Discharge Rx Participant: Yes New Discharge Prescriptions: New HYDROcodone/APAP 7.5-325MG [[place] 7.5-325] 1 - 2 tab PO Q6H PRN #56 tab PRN Reason: Pain No Action Testosterone Cypionate [Depo-Testosterone] 300 mg IM Q30D Simvastatin [Zocor] 20 mg PO HS Levothyroxine Sodium [Synthroid] 50 mcg PO DAILY Ipratropium [place] [Atrovent Hfa] 2 puff INHALATION RT-QID Gabapentin [Neurontin] 300 mg PO BID Metoprolol Tartrate 25 mg PO BID metFORMIN HCL 1,000 mg PO BID Insulin Glargine [Lantus] 42 unit SQ DAILY oxyCODONE-APAP 10-325MG [Percocet 10-325 mg] 1 tab PO QID PRN PRN Reason: Pain Discharge Medication List Simvastatin [Zocor] 20 mg PO HS 07/05/16 [History] Testosterone Cypionate [Depo-Testosterone] 300 mg IM Q30D 07/05/16 [History] Levothyroxine Sodium [Synthroid] 50 mcg PO DAILY 07/27/16 [History] Gabapentin [Neurontin] 300 mg PO BID 05/07/17 [History] Ipratropium [place] [Atrovent Hfa] 2 puff INHALATION RT-QID 05/07/17 [History] Metoprolol Tartrate 25 mg PO BID 05/07/17 [History] metFORMIN HCL 1,000 mg PO BID 07/16/17 [History] Insulin Glargine [Lantus] 42 unit SQ DAILY 05/27/18 [History] oxyCODONE-APAP 10-325MG [Percocet 10-325 mg] 1 tab PO QID PRN 05/27/18 [History] HYDROcodone/APAP 7.5-325MG [[place] 7.5-325] 1 - 2 tab PO Q6H PRN #56 tab [Rx] Follow up Appointment(s)/Referral(s): Renee Ashley MD [Primary Care Provider] - 1-2 days Activity/Diet/Wound Care/Special Instructions: Keep site clean. May shower with waterproof Tegaderm intact. Do not soak in a tub. On Sunday, May shower with area uncovered believe Steri-Strips intact and allow them to fray off on their own. Soft cervical collar for comfort. May ambulate to tolerance No heavy or rigorous activity No repetitive bending twisting or lifting. No overhead work.
--- NOTE | 2018-05-31 11:01 | DS ---
DISCHARGE SUMMARY DATE OF SERVICE: 05/30/2018 FINAL DIAGNOSES: 1. Acute cervical pain, shoulder pain with herniated nucleus pulposus, C4-5, right upper limb , status post removal of the hardware, exploration of fusion, anterior cervical decompression and placement interbody graft. 2. Cervical spine stenosis and radiculopathy. 3. Diabetes type 2 uncontrolled. 4. Hypertension. 5. Suicidal ideation with severe depression. 6. History of ETOH. 7. Polysubstance abuse. 8. History of gastroesophageal reflux disease. 9. Hyperlipidemia. 10.History of degenerative joint disease. 11.History of pneumonia. 12.Seizure disorder. 13.History of pancreatitis. 14.Alcoholism. 15.History of splenectomy. 16.History of nephrectomy. 17.History of back surgery. 18.Degenerative joint disease. 19.History of anxiety, bipolar depression, panic disorder. DISCHARGE DISPOSITION: The patient is being discharged in stable condition with guarded prognosis. HISTORY OF PRESENT ILLNESS: This 37-year-old gentleman with past medical history of multiple medical problems, admitted with shoulder pain and significant , underwent surgery by Dr. Bell. Please refer to Dr. Bell's notes for further details. Patient improved significantly. Dr. Bell recommended discharge. The patient being discharged in stable condition with guarded prognosis. DISCHARGE ADVICE AND MEDICATIONS: 1. Discharge diet is cardiac diet. 2. Activity limited until followup. 3. Follow up with Dr. Ashley in 2 to 3 days. 4. Follow up with Dr. Bell as recommended. MEDICATIONS ARE: 1. Neurontin 300 mg p.o. b.i.d. 2. Lantus 42 units subcu daily. 3. Atrovent 2 puffs q.i.d. 4. Synthroid 50 mcg p.o. daily. 5. Metformin 1000 mg p.o. daily. 6. Metoprolol 25 mg p.o. daily. 7. Oxycodone 1 tab q.i.d. p.r.n. 8. Zocor 20 mg q.h.s. 9. Testosterone 300 mg every 30 days. 10.[place] 7.5 q.6 p.r.n. Once again, the patient is being discharged in stable condition with guarded prognosis. MMODL / IJN: [id number] /
--- NOTE | 2018-06-03 15:16 | CDI ---
Last Revision, June 2017 Documentation Clarification Form Date: 06/03/18 From: Shantell Eugene Soco [place], [employer] Executive Hours-8:30 am & 5 pm M-F Admit Date: 05/27/2018 1:18:00 PM Patient Name: Norman Mendoza Visit Number: [id number] Discharge Date: 05/30/18 ATTENTION: The Clinical Documentation Specialists (CDI) and [facility] Coding Staff appreciate your assistance in clarifying documentation. Please respond to the clarification below the line at the bottom and electronically sign. The CDI & [facility] Coding staff will review the response and follow-up if needed. Please note: Queries are made part of the Legal Health Record. If you have any questions, please contact the author of this message via ITS. Charlene Balderas., DO Documentation in the Operative Report included: Diskectomy of C4 5 performed Postoperative Diagnosis: HNP C4 5, radiculopathy In order to capture the procedure, please specify the following: Partial discectomy Complete discectomy Please continue to document in your progress notes and discharge summary in order to capture severity of illness and risk of mortality. Include clinical findings that support your diagnosis. Please note that we did perform a complete discectomy at C4 5 for decompression and interbody preparation for fusion MTDD
--- NOTE | 2018-06-03 15:49 | CDI ---
Last Revision, June 2017 Documentation Clarification Form Date: 06/03/18 From: Shantell Eugene [place], Entry Level Administrative Assistant Hours-8:30 am & 5 pm MKati Admit Date: 05/27/2018 1:18:00 PM Patient Name: Norman Mendoza Visit Number: [id number] Discharge Date: 05/30/18 ATTENTION: The Clinical Documentation Specialists (CDI) and [facility] Coding Staff appreciate your assistance in clarifying documentation. Please respond to the clarification below the line at the bottom and electronically sign. The CDI & [facility] Coding staff will review the response and follow-up if needed. Please note: Queries are made part of the Legal Health Record. If you have any questions, please contact the author of this message via ITS. Inna Albarado MD The patient has diabetes Type II uncontrolled, as indicated in H&P and progress notes on 05/28 & 05/29. POC glucose: 450, 135, 224, 127, 278, 249, 140, 178, 262, 359 Glucose: 389, 145, 132, 264 Treatment: Cover with adult NovoLOG sliding scale Per [facility] 2016 - query the provider for clarification whether the patient has hyperglycemia or hypoglycemia so that the appropriate code may be reported - uncontrolled diabetes indicates that the patient's blood sugar is not at an acceptable level, because it is either too high or too low. In order to capture the severity of Illness and necessary documentation specificity, please clarify if Type 2 uncontrolled diabetes is: Hyperglycemia Hypoglycemia Other, please specify Unable to Determine Please continue to document in your progress notes and discharge summary in order to capture severity of illness and risk of mortality. Include clinical findings that support your diagnosis. Hyperglycemia MTDD
== END 2018-05-30 11:35 | disposition home or self-care (01) | DRG 472 ==
LOC: EC 10:26 → 3NMEDONC 13:18
PROVIDERS: ADMIT Hospitalist; ATTEND Hospitalist
PROC: 0RP104Z Removal of Internal Fixation Device from Cervical Vertebral Joint, Open Approach (ICD-10-PCS; 2018-05-29)
PROC: 0RT30ZZ Resection of Cervical Vertebral Disc, Open Approach (ICD-10-PCS; 2018-05-29)
PROC: 0RG10A0 Fusion of Cervical Vertebral Joint with Interbody Fusion Device, Anterior Approach, Anterior Column, Open Approach (ICD-10-PCS; principal; 2018-05-29 19:15)
DX: M50.121 Cervical disc disorder at C4-C5 level with radiculopathy (principal); R45.851 Suicidal ideations; F10.239 Alcohol dependence with withdrawal, unspecified; E11.40 Type 2 diabetes mellitus with diabetic neuropathy, unspecified; E11.65 Type 2 diabetes mellitus with hyperglycemia; M48.02 Spinal stenosis, cervical region; M47.22 Other spondylosis with radiculopathy, cervical region; F10.229 Alcohol dependence with intoxication, unspecified; I10 Essential (primary) hypertension; E03.9 Hypothyroidism, unspecified; E78.5 Hyperlipidemia, unspecified; K21.9 Gastro-esophageal reflux disease without esophagitis; G40.909 Epilepsy, unspecified, not intractable, without status epilepticus; G43.909 Migraine, unspecified, not intractable, without status migrainosus; F41.0 Panic disorder [episodic paroxysmal anxiety]; F31.9 Bipolar disorder, unspecified; M19.90 Unspecified osteoarthritis, unspecified site; N40.0 Benign prostatic hyperplasia without lower urinary tract symptoms; M54.5 Low back pain; F11.10 Opioid abuse, uncomplicated; F17.210 Nicotine dependence, cigarettes, uncomplicated; Z71.6 Tobacco abuse counseling; Z79.4 Long term (current) use of insulin; Z79.899 Other long term (current) drug therapy; Z79.890 Hormone replacement therapy; Z90.5 Acquired absence of kidney; Z90.81 Acquired absence of spleen; Z98.1 Arthrodesis status; Z87.01 Personal history of pneumonia (recurrent); Z90.49 Acquired absence of other specified parts of digestive tract; Z87.19 Personal history of other diseases of the digestive system; Z87.81 Personal history of (healed) traumatic fracture; Z83.49 Family history of other endocrine, nutritional and metabolic diseases; Z82.49 Family history of ischemic heart disease and other diseases of the circulatory system; Z80.49 Family history of malignant neoplasm of other genital organs
CPT/HCPCS: 72125; 72141; 80048; 80053; 80306; 81003; 82009; 82075; 83036; 85025; 85610; 94640; 96361; 96372; 96374; 96375; 99285

== ENCOUNTER 2018-05-30 14:56 | Emergency (ER) | payer OTHER ==
[~2018-05-30 14:56] MED LIST changes: -DEXAMETHASONE SOD PHOSPHATE 10 MG/ML 1 ML VIAL IV ONE; +EPINEPHrine 10 ML SYRINGE (0.1 MG/ML) ONE; -HEPARIN SODIUM,PORCINE 5,000 UNIT/ML 1 ML VIAL SQ ONE; -HYDROmorphone 1 MG/ML 1 ML SYRINGE IVP PRN; -LACTATED RINGERS 1,000 ML IV SCH; -MIDAZOLAM 2 MG/2 ML VIAL IV PRN; -ONDANSETRON 4 MG/2 ML VIAL IVP ONE; -SCOPOLAMINE 1.5MG/72HR PATCH TRANSDERM ONE; +SODIUM BICARB 8.4% 50 ML SYR (1 MEQ/ML) ONE; -ceFAZolin 2 GM in SODIUM CHLORIDE 0.9% 100 ML IVPB ONE; -metroNIDAZOLE-NS PMX 500 MG in SALINE 1 100ML.BAG IVPB ONE
[2018-05-30] MEDS ORDERED: SODIUM CHLORIDE 0.9% 1,000 ML IV STA ×2 (15:24→16:19)
[2018-05-30 15:34] LABS: Glucose,Whole Blood 180 mg/dL (75-99)
[2018-05-30 15:53] LABS: Basophils % (A) 0 %; Eosinophils % (A) 0 %; HCT 41.4 % (39.0-53.0); HGB 12.5 gm/dL (13.0-17.5); Hypochromasia Marked; Lymphocytes # (A) 2.3 k/uL (1.0-4.8); Lymphocytes % (A) 25 %; MCH 35.9 pg (25.0-35.0); MCHC 30.3 g/dL (31.0-37.0); Macrocytosis Marked; Mean Platelet Volume 8.1; Monocytes # (A) 0.3 k/uL (0-1.0); Monocytes % (A) 3 %; Neutrophils # (A) 6.7 k/uL (1.3-7.7); Neutrophils % (A) 71 %; Platelet Count 201 k/uL (150-450); RDW 12.3 % (11.5-15.5); WBC 9.4 k/uL (3.8-10.6)
[2018-05-30 16:03] LABS: INR 1.3 (<1.2); Prothrombin Time 12.5 sec (9.0-12.0)
[2018-05-30 16:09] LABS: Partial Thromboplastin Time 81.1 sec (22.0-30.0)
[2018-05-30] MEDS ORDERED: EPINEPHrine 1 MG/ML 1 ML AMP IV STA ×2 (16:10→16:25)
[2018-05-30 16:14] LABS: ALT 50 U/L (21-72); AST 60 U/L (17-59); Albumin 2.6 g/dL (3.5-5.0); Alkaline Phosphatase 79 U/L (38-126); Anion Gap 22 mmol/L; Blood Urea Nitrogen 17 mg/dL (9-20); Calcium 7.6 mg/dL (8.4-10.2); Carbon Dioxide 11 mmol/L (22-30); Chloride 100 mmol/L (98-107); Glucose 330 mg/dL (74-99); Magnesium 1.8 mg/dL (1.6-2.3); Potassium 5.1 mmol/L (3.5-5.1); Sodium 133 mmol/L (137-145); Total Bilirubin 0.3 mg/dL (0.2-1.3); Total Protein 4.7 g/dL (6.3-8.2)
[2018-05-30 16:15] LABS: ABG Base Excess -29.8 mmol/L; ABG Oxygen Saturation 77.5 % (94-97); ABG PO2 85 mmHg (83-108); ABG TCO2 10 mmol/L (19-24)
[2018-05-30 16:18] LABS: MCV 118.4 fL (80.0-100.0)
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
[2018-05-30 16:26] LABS: Troponin I <0.012 ng/mL (0.000-0.034)
[2018-05-30 16:30] LABS: Appearance,Urine Clear (Clear); Bilirubin,Urine Negative (Negative); Blood,Urine Negative (Negative); Color,Urine Yellow; Glucose,Urine (UA) 3+ (Negative); Ketones,Urine Negative (Negative); Leukocyte Esterase,Urine Negative (Negative); Mucus,Urine Few /hpf; Nitrite,Urine Negative (Negative); Protein,Urine 1+ (Negative); RBC,Urine 2 /hpf (0-5); Specific Gravity,Urine 1.014 (1.001-1.035); Sperm,Urine Occasional /hpf; Urobilinogen,Urine <2.0 mg/dL (<2.0); WBC,Urine 1 /hpf (0-5)
[2018-05-30] MEDS ORDERED: NOREPINEPHRINE 16 MG in SODIUM CHLORIDE 0.9% 250 ML IV SCH (16:30)
--- NOTE | 2018-05-30 16:32 | XR ---
EXAMINATION TYPE: XR chest 1V portable DATE OF EXAM: 05/30/2018 COMPARISON: Chest x-ray from 9 days ago. HISTORY: Cardiac arrest, chest pain. TECHNIQUE: 2 AP portable frontal supine views of the chest are obtained. FINDINGS: There is new endotracheal tube with tip at superior aortic knob level, approximately 4 to 5 cm above mario. Low lung volumes are present. There is new mediastinal widening particularly right paratracheal region with increased bilateral central opacities. Overlying EKG leads and defibrillato r pads are noted. Cardiac silhouette size is more prominent and upper limits of normal currently. Gas prominent stomach is presumed product of the attempted CPR, correlate clinically. IMPRESSION: 1. New endotracheal tube is satisfactory in position. 2. Low lung volumes with increased cardiac silhouette prominence and suspected new mild to moderate c entral edema and/or infiltrates. Mediastinal widening particularly paratracheal region noted, nonspec ific finding.
[2018-05-30 16:38] LABS: Amphetamine Screen,Urine Not Detected (NotDetected); Barbiturate Screen,Urine Not Detected (NotDetected); Benzodiazepines Screen,Urine Detected (NotDetected); Cocaine Screen,Urine Not Detected (NotDetected); Methadone Screen, Urine Not Detected (NotDetected); Opiate Screen,Urine Detected (NotDetected); Oxycodone Screen, Urine Detected (NotDetected); Phencyclidine Screen,Urine Not Detected (NotDetected); Tricyclic Antidepressant,Urine Not Detected (NotDetected); Urn Cannabinoid Scrn Not Detected (NotDetected)
[2018-05-30 16:38] LABS: ABG HCO3 8 mmol/L (21-25); ABG PCO2 72 mmHg (35-45); ABG PH <7.00 (7.35-7.45)
[2018-05-30 16:40] LABS: Poikilocytosis (M) Present
[2018-05-30 16:43] LABS: Reactive Lymphocytes Present
[2018-05-30 16:59] LABS: Acetaminophen 10.1 ug/mL; Salicylate <1.0 mg/dL
[2018-05-30 17:01] LABS: Alcohol <10 mg/dL
[2018-05-30] MEDS ORDERED: DEXTROSE 5% IN WATER 1,000 ML with SODIUM BICARB (1 MEQ/ML) 100 ML IV SCH (17:15)
--- NOTE | 2018-05-30 17:45 | CT ---
EXAMINATION TYPE: CT brain wo con DATE OF EXAM: 05/30/2018 COMPARISON: 08/23/2016 HISTORY: Cardiac arrest. CT DLP: 1106 mGycm. Automated Exposure Control for Dose Reduction was Utilized. TECHNIQUE: CT scan of the head is performed without contrast. FINDINGS: Ventricles are relatively small. There is loss of sulcal pattern. This is suggestive of cer ebral edema. The calvarium is intact. There is no evidence of intracranial hemorrhage. IMPRESSION: There is evidence of diffuse cerebral edema and probably increased intracranial pressure. I do not se e a uncal herniation on the sagittal images. This exam was discussed with the patient's nurse at 5:45 PM.
--- NOTE | 2018-05-30 17:48 | XR ---
EXAMINATION TYPE: XR chest 1V portable DATE OF EXAM: 05/30/2018 COMPARISON: Today HISTORY: Check line placement TECHNIQUE: Single frontal view of the chest is obtained. FINDINGS: Endotracheal tube is 5 cm from the mario. There are chest leads. There is pulmonary edema . Costophrenic angles are clear. There is large amount of air in the stomach. IMPRESSION: Endotracheal tube in fairly good position. Pulmonary edema unchanged compared to exam on e hour ago.
[2018-05-30] MEDS ORDERED: SALINE IV ONE (18:00)
[2018-05-30] MEDS ORDERED: MANNITOL 20% IV ONE (18:00)
[2018-05-30] MEDS ORDERED: DEXAMETHASONE SOD PHOSPHATE 10 MG/ML 1 ML VIAL IV STA (18:03)
--- NOTE | 2018-05-30 18:22 | CT ---
EXAMINATION TYPE: CT angio thor/abd pel aorta DATE OF EXAM: 05/30/2018 COMPARISON: None HISTORY: Cardiac arrest. CT DLP: 2353.7 mGycm. Automated Exposure Control for Dose Reduction was Utilized. CONTRAST: CT scan of the thorax, abdomen and pelvis is performed without and with IV Contrast, patient injected with 50ml mL of Isovue 370. FINDINGS: There are 3-D post processed images. There is extensive airspace infiltrates throughout the posterior lung griffin. There is arterial flow in the great vessels at the aortic arch. Thoracic aorta has normal size. There is no evidence of aneu rysm or dissection. There is no pericardial effusion. There is no pleural effusion. There are clips from cholecystectomy. Liver shows no focal defect. There are multiple calcified splen ic granulomata. Stomach is large and full of air. There are multiple dilated air-filled loops of buck l. There is Quiroz catheter in the urinary bladder. Bladder is empty. There is no sign of pneumoperito neum. There is no ascites. There is arterial flow in the celiac artery and superior mesenteric artery. There is arterial flow in the right renal artery. The left kidney is absent. There is arterial flow in the common internal and external iliac arteries and bilateral femoral arter ies. There is no retroperitoneal adenopathy. I see no mesenteric edema. The bony thorax and lumbar sp ine appear intact. Bony pelvis appears intact. IMPRESSION: Negative CT angiogram of the chest abdomen pelvis. No evidence of stenosis or aneurysm or dissection. There is a large amount of air in the stomach and small bowel consistent with resuscitation.
--- NOTE | 2018-05-30 18:47 | CT ---
EXAMINATION TYPE: CT angio head neck DATE OF EXAM: 05/30/2018 HISTORY: 416.3 cardiac arrest COMPARISON: None CT DLP: Cardiac arrest. mGycm. Automated Exposure Control for Dose Reduction was Utilized. TECHNIQUE: CTA scan of the neck and brain is performed with IV Contrast, patient injected with 50ml mL of Isovue 370, axial images are obtained, coronal and sagittal reformatted images are reviewed. Th ree-D reconstructed images are created on an independent workstation and reviewed. FINDINGS: There is normal branching pattern of the great vessels at the aortic arch. There is plate with screws fusing anteriorly the cervical spine at C4-5. There is large anterior osteophyte at C6-7. There is p revious fusion at C5-6. There is prevertebral soft tissue swelling. There is arterial flow in the common internal and external carotid arteries of the neck. There is newton ateral internal carotid artery flow within the brain. There is arterial flow in the anterior middle a nd posterior cerebral arteries. The ventricles are small. There is effacement of the sulci. There is no evidence of intracranial hemorrhage. Endotracheal tube is noted. There is soft tissue air in the anterior neck consistent with the recent surgery. This is mainly on the right side. There is increased density in the nasopharynx and ethmoid sinuses. Endotracheal tube is noted. There is a nasogastric tube that is malpositioned and looped on itself in the hypopharynx. IMPRESSION: Negative CT angiogram of the brain. No evidence of arterial stenosis or occlusion. No neovascularity or dissection. Effacement of the cerebral sulci consistent with cerebral edema. Increased density in the nasopharynx consistent with debris. Prevertebral soft tissue swelling consistent with recent postsurgical changes. The nasogastric tube is looped on itself in the hypopharynx and malpositioned.
[2018-05-30 18:58] VITALS: BP 123/67; RESP 12; TEMP 98
[2018-05-31 07:56] VITALS: PULSE 99
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
== END 2018-05-30 19:09 | disposition other institution (70) ==
LOC: EC 14:56
DX: I46.9 Cardiac arrest, cause unspecified (principal); G93.6 Cerebral edema; D50.9 Iron deficiency anemia, unspecified; E87.2 Acidosis; J81.1 Chronic pulmonary edema; R80.9 Proteinuria, unspecified; E11.40 Type 2 diabetes mellitus with diabetic neuropathy, unspecified; K21.9 Gastro-esophageal reflux disease without esophagitis; E78.5 Hyperlipidemia, unspecified; I10 Essential (primary) hypertension; M19.90 Unspecified osteoarthritis, unspecified site; G40.909 Epilepsy, unspecified, not intractable, without status epilepticus; E03.9 Hypothyroidism, unspecified; F17.200 Nicotine dependence, unspecified, uncomplicated; Z79.899 Other long term (current) drug therapy; Z79.4 Long term (current) use of insulin; Z82.49 Family history of ischemic heart disease and other diseases of the circulatory system; Z90.5 Acquired absence of kidney; Z53.8 Procedure and treatment not carried out for other reasons
CPT/HCPCS: 99291; 92950; 31500; 36556; 96365; 96366 ×2; 96368; 96375; 96361; 96360; 36415; 94002; 93005; 80053; 82553; 82805; 83605; 83735; 84484; 85025; 85610; 85730; 81001; 80306; 83520 ×2; 71045; 70496; 70450; 70498; 71275; 74174; G0480; J1100; J0171; Q9967; 80320